=== PATIENT | male | born 1945 | race Caucasian/White ===

== ENCOUNTER 2020-06-04 11:15 | Outpatient (RCR) | payer SELFPAY | END 2020-06-04 23:59 | disposition home or self-care (01) | LOC: ANHAUDIO 11:15 | PROVIDERS: PCP Internal Medicine; Visit Provider Internal Medicine | DX: Z46.1 Encounter for fitting and adjustment of hearing aid (principal) | CPT/HCPCS: 92593 ==

== ENCOUNTER 2021-03-16 22:58 | Inpatient (IN) | payer OTHER, SELFPAY ==
[2021-03-16 23:10] VITALS: BP 187/81; PULSE 102; RESP 18; TEMP 36.2; O2SAT 100
[2021-03-17] VITALS (42 sets, daily range): BP systolic 119–233; BP diastolic 62–140; PULSE 82–137; RESP 12–35; TEMP 36.6–36.7; O2SAT 94–100; BMI 30.1
--- NOTE | 2021-03-17 00:45 | ED.MALEGU ---
HPI - Male Genitourinary General Chief complaint: Urogenital-Male <Keegan Adan MD - Last Filed: 03/17/21 00:49> Stated complaint: urinating blood x 1 hour <Keegan Adan MD - Last Filed: 03/17/21 00:49> Time Seen by Provider: 03/17/21 00:30 <Keegan Adan MD - Last Filed: 03/17/21 00:49> History of Present Illness HPI Narrative: Patient is a 75-year-old male who presents ER with hematuria. He was on warfarin. Reports has been having dysuria throughout the day and urinary frequency. He is urinating very small amounts. He is noticed blood and has been able to squeeze some out when he shakes. Occasional urinary pressure. No pain in the testicles. No history of kidney stone. <Keegan Adan MD - Last Filed: 03/17/21 00:49> Related Data Home medications: Home Medications Medication Instructions Recorded Confirmed glucosamine cap PO PRN 11/07/20 12/03/20 sulfate-methylsulfonylmethane 250 mg-250 mg capsule icosapent ethyl 1 gram capsule 2 g PO BID 11/07/20 12/03/20 losartan 25 mg tablet 12.5 mg PO BID 11/07/20 12/03/20 warfarin 10 mg PO QMWF 03/17/21 <Keegan Adan MD - Last Filed: 03/17/21 00:49> Allergies/Adverse reactions: Allergies Allergy/AdvReac Type Severity Reaction Status Date / Time No Known Allergies Allergy Verified 03/17/21 03:37 <Keegan Adan MD - Last Filed: 03/17/21 00:49> Review of Systems Review of Systems: All systems reviewed & are unremarkable except as noted in HPI and below <Keegan Adan MD - Last Filed: 03/17/21 00:49> Constitutional: Constitutional: Denies chills, Denies fever(s) and Denies weakness <Keegan Adan MD - Last Filed: 03/17/21 00:49> Gastrointestinal: Gastrointestinal: Denies abdominal pain, Denies nausea and Denies vomiting <Keegan Adan MD - Last Filed: 03/17/21 00:49> Genitourinary: Genitourinary: Reports hematuria, Reports oliguria, Reports dysuria, Denies penile discharge, Denies testicular pain and Reports urinary frequency <Keegan Adan MD - Last Filed: 03/17/21 00:49> Musculoskeletal: Musculoskeletal: Denies back pain and Denies muscle cramps <Keegan Adan MD - Last Filed: 03/17/21 00:49> PMFSH Past Medical History Medical History: Medical History (Updated 03/17/21 @ 06:43 by Huseyin Prajapati MD) Atherosclerotic heart disease Chronic diastolic (congestive) heart failure 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 Hx of myocardial infarction Hyperlipidemia Left knee DJD Obstructive sleep apnea Retinal artery occlusion Right knee DJD Right knee pain Vision abnormalities <Keegan Adan MD - Last Filed: 03/17/21 00:49> Surgical History Surgical History: Surgical History (Updated 03/17/21 @ 00:48 by Keegan Adan MD) History of appendectomy <Keegan Adan MD - Last Filed: 03/17/21 00:49> Family History Family History: Family History Mother Family history of thyroid disease Family history of malignant neoplasm Patient's mother is Father Hypertension Family history of Alzheimer's disease Family history of diabetes mellitus in first degree relative Family history of coronary artery disease Diabetes mellitus Sibling Carcinoma of colon Family history of diabetes mellitus in first degree relative Family history of coronary artery disease Diabetes mellitus Other Family history of arthritis Family history of cardiovascular disease <Keegan Adan MD - Last Filed: 03/17/21 00:49> Social History Social History: Social History Second hand tobacco smoke exposure: Yes Alcohol intake: never Substance use: never <Keegan Adan MD - Last Filed: 03/17/21 00:49> Exam Narrative: GENERAL: Well-appearing, well-nourished, and in no acute distress. HEAD
[2021-03-17 00:56] LABS: Basophils Percent Auto 0.4 % (0.2-1.2); Eosinophils Absolute Auto 0.3 K/mm3 (0-0.3); Eosinophils Percent Auto 2.6 % (0-4.4); Hematocrit 40.3 % (42.0-52.0); Hemoglobin 13.5 g/dL (14.0-18.0); Immature Granulocyte Absolute 0.05 K/mm3 (0.00-0.031); Immature Granulocyte Percent A 0.5 % (0-0.5); Immature Platelet Fraction Pct 7.5 % (0.9-11.2); Lymphocytes Absolute Auto 2.02 K/mm3 (0.9-3.2); Lymphocytes Percent Auto 21.2 % (18.3-44.2); Mean Corpuscular HGB Conc 33.5 g/dl (32-36); Mean Corpuscular Hemoglobin 30.8 pg (26-34); Mean Platelet Volume 11.3 fl (7.4-10.4); Monocytes Absolute Auto 0.8 K/mm3 (0.1-0.6); Monocytes Percent Auto 8.5 % (2.6-8.5); Neutrophils Absolute Auto 6.4 K/mm3 (1.3-6.7); Neutrophils Percent Auto 66.8 % (45.5-73.1); Platelet Count Result 124 k/mm3 (150-375); Red Blood Count 4.38 M/mm3 (4.6-6.20); Red Cell Distribution Width 13.9 % (11.5-14.5); White Blood Count 9.5 K/mm3 (4.5-10.0)
[2021-03-17 01:04] LABS: Add Urine Microscopic? YES; Appearance Urine Cloudy (Clear); Bacteria Urine Trace /hpf; Bilirubin Urine Negative (Negative); Blood Urine 3+ (Negative); Color Urine Yellow (Yellow); Glucose Urine UA Negative (Negative); Ketones Urine Negative (Negative); Leukocyte Esterase Ur 2+ LEU/UL (Negative); Mucus Urine Rare /lpf; Nitrate Urine Negative (Negative); Protein Urine 2+ mg/dL (Negative); RBC Urine >75 /hpf (0-2); Specific Grav Ur 1.011 (1.001-1.035); Urobilinogen Urine Negative mg/dL (<2.0); WBC Clumps Urine Present /HPF; WBC Urine >75 /hpf
[2021-03-17 01:05] LABS: Anion Gap 6 mmol/L (8-16); Blood Urea Nitrogen 20 mg/dL (9-20); Carbon Dioxide 31 mmol/L (22-30); Chloride 101 mmol/L (98-107); Estimated CRCL calculation 61 ml/min; Estimated Glomerular Filt Rate > 60; Glucose 129 mg/dL (65-110); Potassium 3.8 mmol/L (3.4-5.0); Prothrombin Time 30.1 Seconds (11.1-14.7); Sodium 138 mmol/L (137-145)
[2021-03-17 01:07] LABS: Partial Thromboplastin Time 69.9 SECONDS (22.3-36.8)
[2021-03-17] MEDS: SODIUM CHLORIDE 0.9% IV 1,000 ML 999 ML IV CONT (01:23)
--- NOTE | 2021-03-17 01:26 | PC.NURSE ---
Blood cultures x 2 and lactic acid drawn.
[2021-03-17 01:45] LABS: Lactic Acid Reflex 2.1 mmol/L (0.7-2.1)
[2021-03-17] MEDS: SODIUM CHLORIDE 0.9% IV 1,000 ML 125 ML IV CONT (04:10)
[2021-03-17 04:30] LABS: Reflex Lactic Acid Yes or No Add Lactic
[2021-03-17 09:01] LABS: Lactic Acid 1.1 mmol/L (0.7-2.1)
--- NOTE | 2021-03-17 09:06 | PC.NURSE ---
URINE IN JEFFRIES BAG . BLOODY IN COLOR. URINE IN TUBING YELLOW. JEFFRIES BAG EMPTIED AT THIS TIME. OKAY PER MD FOR PATIENT TO TAKE HIS HOME MEDICATIONS THAT BROUGHT. MEDICATION LIST CONFIRMED
--- NOTE | 2021-03-17 16:16 | PM.IMHP ---
H&P: HPI History of Present Illness Date/Time: 03/17/21 16:16 Chief Complaint: Dysuria Narrative: Patient is a 75-year-old male who presents ER with hematuria. He was on warfarin. He reports Reports has been having dysuria throughout the day and urinary frequency since past few days. He is urinating very small amounts. He is noticed blood and has been able to squeeze some out when he shakes. Occasional urinary pressure. No pain in the testicles. No history of kidney stone. Upon arrival to the ED his urinalysis showed significant UTI and Willard has been placed. Whether not he had urinary retention is unclear from the documentation. He denies any fever or chills shortness of breath Review of Systems Review of Systems: - CONSTITUTIONAL: Denies weight loss, fever and chills. - HEENT: Denies changes in vision and hearing - RESPIRATORY: Denies SOB and cough. - CV: Denies palpitations and CP. - GI: Denies abdominal pain, nausea, vomiting and diarrhea. - : Reports dysuria and urinary frequency. - MSK: Denies myalgia and joint pain. - SKIN: Denies rash and pruritus. - NEUROLOGICAL: Denies headache and syncope. - PSYCHIATRIC: Denies recent changes in mood. Denies anxiety and depression. 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 Hx of myocardial infarction Hyperlipidemia Left knee DJD Obstructive sleep apnea Retinal artery occlusion Right knee DJD Right knee pain Vision abnormalities Surgical History Surgical History (Updated 03/17/21 @ 00:48 by Keegan Adan MD) History of appendectomy Family History Family History Mother Family history of thyroid disease Family history of malignant neoplasm Patient's mother is Father Hypertension Family history of Alzheimer's disease Family history of diabetes mellitus in first degree relative Family history of coronary artery disease Diabetes mellitus Sibling Carcinoma of colon Family history of diabetes mellitus in first degree relative Family history of coronary artery disease Diabetes mellitus Other Family history of arthritis Family history of cardiovascular disease Social History Social History Second hand tobacco smoke exposure: Yes Alcohol intake: never Substance use: never Meds Home Medications and Allergies Home Medications Medication Instructions Recorded Confirmed Type aspirin 81 mg tablet,delayed 81 mg PO DAILY #90 tablet 09/20/19 03/17/21 Rx release furosemide 20 mg tablet 20 mg PO QAM #90 tablet 09/20/19 03/17/21 Rx pantoprazole 40 mg tablet,delayed 40 mg PO QAM #90 tablet 09/20/19 03/17/21 Rx release glucosamine 1 cap PO DAILY 11/07/20 03/17/21 History sulfate-methylsulfonylmethane 250 mg-250 mg capsule losartan 25 mg tablet 12.5 mg PO BID 11/07/20 03/17/21 History atorvastatin 40 mg PO HS 03/17/21 03/17/21 History icosapent ethyl [Vascepa] 2 g PO BID 03/17/21 03/17/21 History warfarin 10 mg PO QMWF 03/17/21 03/17/21 History Allergies Allergy/AdvReac Type Severity Reaction Status Date / Time No Known Allergies Allergy Verified 03/17/21 03:37 Vital Signs Vital Signs - 24 hr 03/16/21 23:10 03/17/21 00:21 03/17/21 00:22 Temperature 97.1 F L Pulse Rate 102 H 96 97 Respiratory Rate 18 12 23 H Blood Pressure 187/81 H 180/88 H Pulse Oximetry 100 03/17/21 00:30 03/17/21 00:31 03/17/21 00:45 Temperature Pulse Rate 98 95 117 H Respiratory Rate 18 20 20
--- NOTE | 2021-03-17 18:57 | ADMGEN ---
This patient, Steven Shaw, was admitted to [facility] Room 314-02. Patient/family oriented to hospital policies and general routines including ID bracelet, bed and alarms, visiting hours, pain management, procedures, bathroom and other care routines, personal items, smoking policy, room service/diet, and visiting hours. Information on how to activate the Rapid Response Team has been discussed. Patient/Family are encouraged to report perceived risks to care and to ask questions if they do not understand what they are told or what they should do.
[2021-03-18 05:32] VITALS: BP 141/80; PULSE 82; RESP 16; TEMP 36.4; O2SAT 96
[2021-03-18 06:37] LABS: Basophils Percent Auto 0.6 % (0.2-1.2); Eosinophils Absolute Auto 0.3 K/mm3 (0-0.3); Eosinophils Percent Auto 4.3 % (0-4.4); Hematocrit 39.3 % (42.0-52.0); Hemoglobin 13.1 g/dL (14.0-18.0); Immature Granulocyte Absolute 0.06 K/mm3 (0.00-0.031); Immature Granulocyte Percent A 0.8 % (0-0.5); Immature Platelet Fraction Pct 5.7 % (0.9-11.2); Lymphocytes Absolute Auto 2.42 K/mm3 (0.9-3.2); Lymphocytes Percent Auto 33.9 % (18.3-44.2); Mean Corpuscular HGB Conc 33.3 g/dl (32-36); Mean Corpuscular Hemoglobin 30.7 pg (26-34); Mean Platelet Volume 11.2 fl (7.4-10.4); Monocytes Absolute Auto 0.8 K/mm3 (0.1-0.6); Monocytes Percent Auto 11.6 % (2.6-8.5); Neutrophils Absolute Auto 3.5 K/mm3 (1.3-6.7); Neutrophils Percent Auto 48.8 % (45.5-73.1); Platelet Count Result 136 k/mm3 (150-375); Red Blood Count 4.27 M/mm3 (4.6-6.20); Red Cell Distribution Width 14.1 % (11.5-14.5); White Blood Count 7.1 K/mm3 (4.5-10.0)
[2021-03-18 07:18] LABS: INR 3.3; Prothrombin Time 32.6 Seconds (11.1-14.7)
[2021-03-18 07:32] LABS: Alanine Aminotransferase 30 U/L (4-50); Albumin Level 3.6 g/dL (3.5-5.1); Alkaline Phosphatase 71 U/L (38-126); Anion Gap 4 mmol/L (8-16); Aspartate Amino Transferase 31 U/L (17-59); Bilirubin,Total 0.7 mg/dL (0.2-1.3); Blood Urea Nitrogen 12 mg/dL (9-20); Calcium 8.8 mg/dL (8.4-10.2); Carbon Dioxide 31 mmol/L (22-30); Chloride 105 mmol/L (98-107); Estimated CRCL calculation 84 ml/min; Estimated Glomerular Filt Rate > 60; Glucose 117 mg/dL (65-110); Sodium 140 mmol/L (137-145)
[2021-03-18 08:00] VITALS: PULSE 82; RESP 16; O2SAT 96
--- NOTE | 2021-03-18 08:48 | PC.NURSE ---
Pt took own home medication this morning in medication schedule case. Discussed with pt and pt medication schedule case needs to be placed in medication room and given back at discharge to avoid further confusion with medication administration.Md notified. to bring up medication list to clarify pt medication.
--- NOTE | 2021-03-18 08:56 | PC.NURSE ---
Provider Thompson Cooney called regarding pt taking own home medication this morning, to bring in medication list the clarify home medication indigested this morning.
--- NOTE | 2021-03-18 12:05 | PC.NURSE ---
Called and reported PT/INR to provider Rocio Cooney, awaiting call back.
--- NOTE | 2021-03-18 13:22 | PC.NURSE ---
Per provider Rocio Cooney, warfarin held at this time.
--- NOTE | 2021-03-18 13:42 | PC.NURSE ---
Informed provider Rocio Cooney pt family requesting urology consult.
[2021-03-18 13:55] VITALS: BP 117/87; PULSE 92; RESP 20; TEMP 36.7; O2SAT 100
--- NOTE | 2021-03-18 14:18 | PC.NURSE ---
POA stated wants to discuss plan of care with hospitalist, Radha Cooney informed.
--- NOTE | 2021-03-18 17:25 | PM.IMPN ---
Progress Note: A&P Assessment and Plan (1) Urinary tract infection: Qualifiers: Hematuria presence: without hematuria Urinary tract infection type: acute cystitis Qualified Code(s): N30.00 - Acute cystitis without hematuria Code(s): N39.0 - Urinary tract infection, site not specified Status: Acute (2) Chronic diastolic (congestive) heart failure: Code(s): I50.32 - Chronic diastolic (congestive) heart failure Status: Acute (3) Retinal artery occlusion: Code(s): H34.9 - Unspecified retinal vascular occlusion Status: Acute (4) Obstructive sleep apnea: Code(s): G47.33 - Obstructive sleep apnea (adult) (pediatric) Status: Acute (5) Hyperlipidemia: Code(s): E78.5 - Hyperlipidemia, unspecified Status: Acute (6) Urinary retention: Code(s): R33.9 - Retention of urine, unspecified Status: Acute Additional Plan # urine tract infection Rocephin started follow cultures # urinary retention Willard in place follow-up with Urology in 1-2 weeks for removal of Willard catheter likely due to UTI does have history of BPH. 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 HEAD: Normocephalic, atraumatic. CHEST: Clear to auscultation. No respiratory distress. HEART: Regular rate and rhythm. Normal peripheral pulses. ABDOMEN: Soft, nontender, nondistended. EXTREMITIES: Normal range of motion. No edema. SKIN: Warm, dry, no rash. NEURO: Alert and oriented x3. PSYCH: Normal mood and affect. Urinary: Willard in place clear urine in bag Objective Data Vital Signs Vital Signs: Vital Signs - 24 hr 03/17/21 18:48 03/17/21 20:00 03/17/21 22:00 Temperature 36.6 C Pulse Rate 87 90 Respiratory Rate 18 18 18 Blood Pressure 137/84 119/62 Pulse Oximetry 99 99 97 03/18/21 05:32 03/18/21 08:00 03/18/21 13:55 Temperature 36.4 C 36.7 C Pulse Rate 82 82 92 Respiratory Rate 16 16 20 Blood Pressure 141/80 H 117/87 Pulse Oximetry 96 96 100 Intake/Output Intake/Output: Intake & Output 03/15/21 03/16/21 03/17/21 03/18/21 23:59 23:59 23:59 23:59 Intake Total 2150 1800 Output Total 3200 2400 Balance -1050 -600 Meds/Results Medications: Active Medications Generic Name Dose Route Start Last Admin Trade Name Freq PRN Reason Stop Dose Admin Acetaminophen 650 mg 03/17/21 01:44 Acetaminophen 325 Mg Tablet PO Q4H PRN Fever Aspirin 81 mg 03/18/21 09:00 03/18/21 08:53 Aspirin 81 Mg Enteric Tablet PO Not Given DAILY RUDY Atorvastatin Calcium 40 mg 03/17/21 21:00 03/17/21 20:51 Atorvastatin 40 Mg Tablet PO Not Given HS RUDY Fish Oil 2 gm 03/17/21 17:00 03/18/21 08:53 [place] 3 Polyunsat Fatty Acids 1 Gm Cap PO Not Given BID RUDY Furosemide 20 mg 03/18/21 09:00 03/18/21 09:00 Furosemide 20 Mg Tablet PO Not Given QAM RUDY Sodium Chloride 1,000 mls @ 125 mls/hr 03/17/21 01:45 03/17/21 12:28 Normal Saline Iv IV CONT Infused .Q8H RUDY Infusion Losartan Potassium 12.5 mg 03/17/21 21:00 03/18/21 09:00 Losartan Potassium 12.5 Mg Tablet PO Not Given Q12HR RUDY Non-Formulary Medication 1 cap 03/18/21 09:
[2021-03-18] MEDS: OMEGA 3 POLYUNSAT FATTY ACIDS 1 GM CAP 2 GM PO (18:43)
[2021-03-18 19:17] VITALS: PULSE 92; RESP 20; O2SAT 100
[2021-03-18] MEDS: ATORVASTATIN 40 MG TABLET PO (21:16)
[2021-03-18] MEDS: LOSARTAN POTASSIUM 12.5 MG TABLET PO (21:16)
[2021-03-18 22:00] VITALS: BP 153/70; PULSE 78; RESP 16; TEMP 36.6; O2SAT 99
[2021-03-19 06:00] VITALS: BP 160/82; PULSE 88; RESP 18; TEMP 36.8; O2SAT 100
[2021-03-19 07:53] LABS: INR 2.2; Prothrombin Time 23.5 Seconds (11.1-14.7)
[2021-03-19] MEDS: ASPIRIN 81 MG ENTERIC TABLET PO (08:06)
[2021-03-19] MEDS: FUROSEMIDE 20 MG TABLET PO (08:06)
[2021-03-19] MEDS: LOSARTAN POTASSIUM 12.5 MG TABLET PO ×2 (08:06→20:14)
[2021-03-19] MEDS: OMEGA 3 POLYUNSAT FATTY ACIDS 1 GM CAP 2 GM PO ×2 (08:06→17:36)
[2021-03-19] MEDS: PANTOPRAZOLE 40 MG TABLET PO (08:06)
--- NOTE | 2021-03-19 10:36 | PM.IMPN ---
Progress Note: A&P Assessment and Plan (1) Urinary tract infection: Qualifiers: Hematuria presence: without hematuria Urinary tract infection type: acute cystitis Qualified Code(s): N30.00 - Acute cystitis without hematuria Code(s): N39.0 - Urinary tract infection, site not specified Status: Acute Assessment and Plan: UC-->Escherichia Coli Continue IV Rocephin (2) Chronic diastolic (congestive) heart failure: Code(s): I50.32 - Chronic diastolic (congestive) heart failure Status: Acute (3) Retinal artery occlusion: Code(s): H34.9 - Unspecified retinal vascular occlusion Status: Acute (4) Obstructive sleep apnea: Code(s): G47.33 - Obstructive sleep apnea (adult) (pediatric) Status: Acute (5) Hyperlipidemia: Code(s): E78.5 - Hyperlipidemia, unspecified Status: Acute (6) Urinary retention: Code(s): R33.9 - Retention of urine, unspecified Status: Acute Assessment and Plan: Willard in place follow-up with Urology in 1-2 weeks for removal of Willard catheter Likely due to UTI does have history of BPH (7) Bacteremia: Code(s): R78.81 - Bacteremia Status: Acute Assessment and Plan: BC-->Coag negative Staphylococcus Empiric antibiotics initiated Follow final results and sensitivity Additional Plan # urine tract infection Rocephin started follow cultures # urinary retention Willard in place follow-up with Urology in 1-2 weeks for removal of Willard catheter likely due to UTI does have history of BPH. 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 # osteoarthrtitis # DVT proph: on warfarin wtih therapeutic INR Disposition: Home with self care; discussed plan for care with RN and family Subjective Date/time seen: 03/19/21 10:36 Interval history: 03/18/2021: Pt seen this a.m.; labs, vs, diagnostic reports reviewed; denies any abdominal pain; Willard catheter draining without difficulty 03/19/2021: Pt seen and evaluated; BC+;no acute events overnight; no new complaints Review of Systems Review of Systems: All systems reviewed & are unremarkable except as noted in HPI and below Exam Narrative: GENERAL: Well-appearing, well-nourished, and in no acute distress. HEAD: Normocephalic, atraumatic. CHEST: Clear to auscultation. No respiratory distress. HEART: Regular rate and rhythm. Normal peripheral pulses. ABDOMEN: Soft, nontender, nondistended. EXTREMITIES: Normal range of motion. No edema. SKIN: Warm, dry, no rash. NEURO: Alert and oriented x3. PSYCH: Normal mood and affect. Urinary: Willard in place clear urine in bag Objective Data Vital Signs Vital Signs: Vital Signs - 24 hr 03/18/21 13:55 03/18/21 19:17 03/18/21 22:00 Temperature 36.7 C 36.6 C Pulse Rate 92 92 78 Respiratory Rate 20 20 16 Blood Pressure 117/87 153/70 H Pulse Oximetry 100 100 99 03/19/21 06:00 Temperature 36.8 C Pulse Rate 88 Respiratory Rate 18 Blood Pressure 160/82 H Pulse Oximetry 100 Intake/Output Intake/Output: Intake & Output 03/16/21 03/17/21 03/18/21 03/19/21 23:59 23:59 23:59 23:59 Intake Total 2150 2590 300 Output Total 3200 2700 2300 Balance -1050 -110 -6037 Meds/Results Medications: Active Medications Generic Name Dose Route Start Last Admin Trade Name Freq PRN Reason Stop Dose Admin Acetaminophen 650 mg 03/17/21 01:44 Acetaminophen 325 Mg Tablet PO Q4H PRN Fever Aspirin 81 mg 03/18/21 09:00 03/19/21 08:06 Aspirin 81 Mg Enteric Tablet PO 81 mg DAILY RUDY Administration Atorvastatin Calcium 40 mg 03/17/21 21:00 03/18/21 21:16
[2021-03-19 15:24] VITALS: BP 136/67; PULSE 88; RESP 16; TEMP 36.3; O2SAT 97
[2021-03-19] MEDS: WARFARIN (*PBKC) 4 MG TABLET 8 MG PO (17:37)
[2021-03-19] MEDS: ATORVASTATIN 40 MG TABLET PO (20:14)
[2021-03-19 22:00] VITALS: BP 121/56; PULSE 89; RESP 18; TEMP 36.4; O2SAT 97
[2021-03-20 06:00] VITALS: BP 163/85; PULSE 96; RESP 18; TEMP 36.1; O2SAT 100
[2021-03-20 07:57] LABS: INR 1.9; Prothrombin Time 21.3 Seconds (11.1-14.7)
[2021-03-20] MEDS: ASPIRIN 81 MG ENTERIC TABLET PO (08:05)
[2021-03-20] MEDS: OMEGA 3 POLYUNSAT FATTY ACIDS 1 GM CAP 2 GM PO ×2 (08:05→18:00)
[2021-03-20] MEDS: FUROSEMIDE 20 MG TABLET PO (08:05)
[2021-03-20] MEDS: PANTOPRAZOLE 40 MG TABLET PO (08:06)
[2021-03-20] MEDS: LOSARTAN POTASSIUM 12.5 MG TABLET PO ×2 (08:06→19:55)
[2021-03-20 09:22] LABS: Hematocrit 39.5 % (42.0-52.0); Hemoglobin 13.1 g/dL (14.0-18.0); Mean Corpuscular HGB Conc 33.2 g/dl (32-36); Mean Corpuscular Hemoglobin 30.3 pg (26-34); Mean Corpuscular Volume 91.4 fl (80-100); Mean Platelet Volume 10.8 fl (7.4-10.4); Platelet Count Result 149 k/mm3 (150-375); Red Blood Count 4.32 M/mm3 (4.6-6.20); Red Cell Distribution Width 13.5 % (11.5-14.5); White Blood Count 6.7 K/mm3 (4.5-10.0)
--- NOTE | 2021-03-20 09:34 | PM.IMPN ---
Progress Note: A&P Assessment and Plan (1) Urinary tract infection: Qualifiers: Hematuria presence: without hematuria Urinary tract infection type: acute cystitis Qualified Code(s): N30.00 - Acute cystitis without hematuria Code(s): N39.0 - Urinary tract infection, site not specified Status: Acute Assessment and Plan: UC-->Escherichia Coli Continue IV Rocephin (2) Chronic diastolic (congestive) heart failure: Code(s): I50.32 - Chronic diastolic (congestive) heart failure Status: Acute (3) Retinal artery occlusion: Code(s): H34.9 - Unspecified retinal vascular occlusion Status: Acute (4) Obstructive sleep apnea: Code(s): G47.33 - Obstructive sleep apnea (adult) (pediatric) Status: Acute (5) Hyperlipidemia: Code(s): E78.5 - Hyperlipidemia, unspecified Status: Acute (6) Urinary retention: Code(s): R33.9 - Retention of urine, unspecified Status: Acute Assessment and Plan: Willard in place follow-up with Urology in 1-2 weeks for removal of Willard catheter Likely due to UTI does have history of BPH (7) Bacteremia: Code(s): R78.81 - Bacteremia Status: Acute Assessment and Plan: BC-->Coag negative Staphylococcus Empiric antibiotics initiated Continue Vanc, home on oral antibiotics tomorrow Additional Plan # urine tract infection Rocephin started follow cultures # urinary retention Willard in place follow-up with Urology in 1-2 weeks for removal of Willard catheter likely due to UTI does have history of BPH. 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 # osteoarthrtitis # DVT proph: on warfarin wtih therapeutic INR Disposition: Home with self care; d/c home tomorrow Subjective Date/time seen: 03/20/21 09:34 Interval history: 03/18/2021: Pt seen this a.m.; labs, vs, diagnostic reports reviewed; denies any abdominal pain; Willard catheter draining without difficulty 03/19/2021: Pt seen and evaluated; BC+;no acute events overnight; no new complaints 03/20/2021: Pt seen and examined; overall pt is improving clinically; no acute events overnight; denies any new complaints Review of Systems Review of Systems: All systems reviewed & are unremarkable except as noted in HPI and below Exam Narrative: GENERAL: Well-appearing, well-nourished, and in no acute distress. HEAD: Normocephalic, atraumatic. CHEST: Clear to auscultation. No respiratory distress. HEART: Regular rate and rhythm. Normal peripheral pulses. ABDOMEN: Soft, nontender, nondistended. EXTREMITIES: Normal range of motion. No edema. SKIN: Warm, dry, no rash. NEURO: Alert and oriented x3. PSYCH: Normal mood and affect. Urinary: Willard in place clear urine in bag Objective Data Vital Signs Vital Signs: Vital Signs - 24 hr 03/19/21 15:24 03/19/21 22:00 03/20/21 06:00 Temperature 36.3 C L 36.4 C 36.1 C L Pulse Rate 88 89 96 Respiratory Rate 16 18 18 Blood Pressure 136/67 121/56 L 163/85 H Pulse Oximetry 97 97 100 Intake/Output Intake/Output: Intake & Output 03/17/21 03/18/21 03/19/21 03/20/21 23:59 23:59 23:59 23:59 Intake Total 2150 2590 1810 800 Output Total 3200 2700 3650 1999 Balance -1050 -110 -1840 -1200 Meds/Results Medications: Active Medications Generic Name Dose Route Start Last Admin Trade Name Emil PRN Reason Stop Dose Admin Acetaminophen 650 mg 03/17/21 01:44 Acetaminophen 325 Mg Tablet PO Q4H PRN Fever Aspirin 81 mg 03/18/21 09:00 03/20/21 08:05 Aspirin 81 Mg Enteric Tablet PO 81 mg DAILY RUDY Administration Atorvastatin Calcium 40 mg 03/17/21 21:
[2021-03-20 09:40] LABS: Anion Gap 8 mmol/L (8-16); Blood Urea Nitrogen 15 mg/dL (9-20); Calcium 8.7 mg/dL (8.4-10.2); Carbon Dioxide 30 mmol/L (22-30); Chloride 100 mmol/L (98-107); Estimated CRCL calculation 68 ml/min; Estimated Glomerular Filt Rate > 60; Glucose 177 mg/dL (65-110); Sodium 138 mmol/L (137-145)
--- NOTE | 2021-03-20 12:24 | PC.NURSE ---
pt has very decreased appetite. refusing to eat any meals but does drink liquids occasionally. Spoke with dietitian about started the pt on some supplements. will follow up.
[2021-03-20 14:00] VITALS: BP 118/70; PULSE 84; RESP 18; TEMP 36.7; O2SAT 99
[2021-03-20] MEDS: WARFARIN (*PBKC) 5 MG TABLET 10 MG PO (18:00)
[2021-03-20] MEDS: ATORVASTATIN 40 MG TABLET PO (19:55)
[2021-03-20 22:00] VITALS: BP 141/76; PULSE 90; RESP 18; TEMP 37.4; O2SAT 99
[2021-03-21 00:07] LABS: Vancomycin Trough 12.6 ug/mL (10.0-20.0)
[2021-03-21 05:45] VITALS: BP 134/69; PULSE 86; RESP 16; TEMP 37; O2SAT 98
[2021-03-21] MEDS: LOSARTAN POTASSIUM 12.5 MG TABLET PO (08:44)
[2021-03-21] MEDS: ASPIRIN 81 MG ENTERIC TABLET PO (08:44)
[2021-03-21] MEDS: FUROSEMIDE 20 MG TABLET PO (08:44)
[2021-03-21] MEDS: PANTOPRAZOLE 40 MG TABLET PO (08:45)
[2021-03-21] MEDS: OMEGA 3 POLYUNSAT FATTY ACIDS 1 GM CAP 2 GM PO (08:45)
[2021-03-21 08:50] LABS: Estimated CRCL calculation 75 ml/min; Estimated Glomerular Filt Rate > 60
[2021-03-21 10:16] LABS: Hematocrit 39.9 % (42.0-52.0); Hemoglobin 13.2 g/dL (14.0-18.0); Mean Corpuscular HGB Conc 33.1 g/dl (32-36); Mean Corpuscular Hemoglobin 30.7 pg (26-34); Mean Corpuscular Volume 92.8 fl (80-100); Mean Platelet Volume 10.4 fl (7.4-10.4); Platelet Count Result 169 k/mm3 (150-375); Red Cell Distribution Width 13.5 % (11.5-14.5)
[2021-03-21 10:40] LABS: Anion Gap 6 mmol/L (8-16); Blood Urea Nitrogen 15 mg/dL (9-20); Calcium 8.6 mg/dL (8.4-10.2); Carbon Dioxide 29 mmol/L (22-30); Chloride 103 mmol/L (98-107); Estimated CRCL calculation 75 ml/min; Estimated Glomerular Filt Rate > 60; Glucose 167 mg/dL (65-110); Sodium 138 mmol/L (137-145)
[2021-03-21 11:27] LABS: INR 1.8; Prothrombin Time 20.8 Seconds (11.1-14.7)
--- NOTE | 2021-03-21 13:28 | PM.DS ---
DS: Admitting Diagnosis Discharge Date 03/21/2021 Admitting Diagnosis Urinary tract infection DS: Discharge Diagnosis Discharge Diagnosis (1) Urinary tract infection: Qualifiers: Hematuria presence: without hematuria Urinary tract infection type: acute cystitis Qualified Code(s): N30.00 - Acute cystitis without hematuria Code(s): N39.0 - Urinary tract infection, site not specified Status: Acute Assessment and Plan: UC-->Escherichia Coli S/p IV Rocephin (2) Chronic diastolic (congestive) heart failure: Code(s): I50.32 - Chronic diastolic (congestive) heart failure Status: Acute (3) Retinal artery occlusion: Code(s): H34.9 - Unspecified retinal vascular occlusion Status: Acute (4) Obstructive sleep apnea: Code(s): G47.33 - Obstructive sleep apnea (adult) (pediatric) Status: Acute (5) Hyperlipidemia: Code(s): E78.5 - Hyperlipidemia, unspecified Status: Acute (6) Urinary retention: Code(s): R33.9 - Retention of urine, unspecified Status: Acute Assessment and Plan: Willard in place follow-up with Urology in 1-2 weeks for removal of Willard catheter Likely due to UTI does have history of BPH (7) Bacteremia: Code(s): R78.81 - Bacteremia Status: Acute Assessment and Plan: BC-->Coag negative Staphylococcus Empiric antibiotics initiated Continue Vanc, home on oral antibiotics tomorrow DS: Summary Hospital Course Hospital Course: Steven Shaw is a 75-year-old male who presents ER with hematuria. He was on warfarin. He reports Reports has been having dysuria throughout the day and urinary frequency since past few days. He is urinating very small amounts. He is noticed blood and has been able to squeeze some out when he shakes. Occasional urinary pressure. No pain in the testicles. No history of kidney stone. Upon arrival to the ED his urinalysis showed significant UTI and Willard has been placed. Whether not he had urinary retention is unclear from the documentation. He denies any fever or chills shortness of breath. The patient has responded well to IV antibiotics and clinically has improved. He will discharge home with oral antibiotics. He has been advised to follow up with his PCP and also with urology. Time Spent with Patient Time attestation: Total time spent providing and/or coordinating discharge services: Time spent: Greater than 30 minutes Exam Narrative: GENERAL: Well-appearing, well-nourished, and in no acute distress. HEAD: Normocephalic, atraumatic. CHEST: Clear to auscultation. No respiratory distress. HEART: Regular rate and rhythm. Normal peripheral pulses. ABDOMEN: Soft, nontender, nondistended. EXTREMITIES: Normal range of motion. No edema. SKIN: Warm, dry, no rash. NEURO: Alert and oriented x3. PSYCH: Normal mood and affect. Urinary: Willard in place clear urine in bag DS: Data Data Completed and Pending Labs on day of discharge: Labs from last 24 hours 03/21/21 03/21/21 03/21/21 10:55 09:45 09:45 WBC 8.0 RBC 4.30 L Hgb 13.2 L Hct 39.9 L MCV 92.8 MCH 30.7 MCHC 33.1 RDW 13.5 Plt Count 169 MPV 10.4 PT 20.8 H INR 1.8 Sodium 138 Potassium 4.0 Chloride 103 Carbon Dioxide 29 Anion Gap 6 L BUN 15 Creatinine 0.90 Estim Creat Clear Calc 75 Estimated GFR > 60 Glucose 167 H Calcium 8.6 Vancomycin Trough 03/21/21 03/20/21 07:23 23:12 WBC RBC Hgb Hct MCV MCH MCHC RDW Plt Count MPV PT INR Sodium Potassium Chloride Carbon Dioxide Anion Gap BUN Creatinine 0.90 Estim Creat Clear Calc 75 Estimated GFR > 60 Glucose Calcium Vancomycin Trough 12.6 Discharge Plan Discharge Attending physician on discharge: Olga Aparicio Discharging Clinician: Rocio Cooney Patient Disposition: Home, Self-Care Activity:
[2021-03-21 14:00] VITALS: BP 117/56; PULSE 74; RESP 19; TEMP 36.3; O2SAT 100
== END 2021-03-21 15:30 | disposition home or self-care (01) | DRG 690 ==
LOC: ANHED 03-17 06:43 → ANH3MEDSUR 03-17 17:46
PROVIDERS: Emergency Medicine; Internal Medicine; Admitting Provider Internal Medicine; Emergency Provider Emergency Medicine; PCP Internal Medicine; Visit Provider Nurse Practitioner Adult Health
DX: N39.0 Urinary tract infection, site not specified (principal); I50.32 Chronic diastolic (congestive) heart failure; H34.9 Unspecified retinal vascular occlusion; R78.81 Bacteremia; B96.20 Unspecified Escherichia coli [E. coli] as the cause of diseases classified elsewhere; G47.33 Obstructive sleep apnea (adult) (pediatric); E78.5 Hyperlipidemia, unspecified; B95.7 Other staphylococcus as the cause of diseases classified elsewhere; I25.10 Atherosclerotic heart disease of native coronary artery without angina pectoris; M17.0 Bilateral primary osteoarthritis of knee; R73.03 Prediabetes; N40.1 Benign prostatic hyperplasia with lower urinary tract symptoms; R33.8 Other retention of urine; I48.0 Paroxysmal atrial fibrillation; I73.9 Peripheral vascular disease, unspecified; I25.2 Old myocardial infarction; Z90.49 Acquired absence of other specified parts of digestive tract; Z79.01 Long term (current) use of anticoagulants; Z95.1 Presence of aortocoronary bypass graft; Z95.2 Presence of prosthetic heart valve; H54.7 Unspecified visual loss
CPT/HCPCS: 36415; 80048; 80053; 80202; 81001; 82565; 83605; 85025; 85027; 85055; 85610; 85730; 87040; 87077; 87086; 87088; 87186; 96361; 96365; 96367; 97161; 97165; 99285; A9270; G0378; J0131; J0696; J3370; J7030

== ENCOUNTER 2022-01-20 09:19 | Outpatient (CLI) | payer OTHER, SELFPAY ==
[2022-01-20 10:02] LABS: Basophils Absolute Auto 0.1 K/mm3 (0.0-0.1); Basophils Percent Auto 0.5 % (0.2-1.2); Eosinophils Absolute Auto 0.2 K/mm3 (0-0.3); Hematocrit 43.3 % (42.0-52.0); Hemoglobin 14.3 g/dL (14.0-18.0); Immature Granulocyte Absolute 0.12 K/mm3 (0.00-0.031); Immature Granulocyte Percent A 1.2 % (0-0.5); Lymphocytes Absolute Auto 3.63 K/mm3 (0.9-3.2); Lymphocytes Percent Auto 37.7 % (18.3-44.2); Mean Corpuscular Hemoglobin 30.9 pg (26-34); Mean Corpuscular Volume 93.5 fl (80-100); Mean Platelet Volume 10.4 fl (7.4-10.4); Monocytes Absolute Auto 0.8 K/mm3 (0.1-0.6); Monocytes Percent Auto 8.2 % (2.6-8.5); Neutrophils Absolute Auto 4.9 K/mm3 (1.3-6.7); Neutrophils Percent Auto 50.4 % (45.5-73.1); Platelet Count Result 165 k/mm3 (150-375); Red Blood Count 4.63 M/mm3 (4.6-6.20); Red Cell Distribution Width 14.3 % (11.5-14.5); White Blood Count 9.6 K/mm3 (4.5-10.0)
[2022-01-20 10:08] LABS: Appearance Urine Clear (Clear); Bilirubin Urine Negative (Negative); Blood Urine 1+ (Negative); Color Urine Yellow (Yellow); Glucose Urine UA Negative (Negative); Ketones Urine Negative (Negative); Leukocyte Esterase Ur Negative LEU/UL (Negative); Nitrate Urine Negative (Negative); Protein Urine Negative (Negative); Specific Grav Ur 1.015 (1.001-1.035); Urobilinogen Urine 0.2 mg/dL (<2.0)
[2022-01-20 10:12] LABS: Anion Gap 9 mmol/L (8-16); Blood Urea Nitrogen 19 mg/dL (9-20); Carbon Dioxide 30 mmol/L (22-30); Chloride 101 mmol/L (98-107); Estimated Glomerular Filt Rate > 60; Glucose 118 mg/dL (65-110); Potassium 4.1 mmol/L (3.4-5.0); Sodium 140 mmol/L (137-145)
--- NOTE | 2022-01-20 10:21 | ECG_ITS ---
Measurements Intervals [place] Rate: 73 P: 48 NH: 172 QRS: 9 QRSD: 102 T: 54 QT: 382 QTc: 423 Interpretive Statements SINUS RHYTHM POSSIBLE LEFT ATRIAL ENLARGEMENT CONSIDER INFERIOR INFARCT, AGE INDETERMINATE ABNORMAL ECG NO PREVIOUS ECG AVAILABLE FOR COMPARISON Electronically Signed On 01-20-2022 11:00:51 CHART WRITER by Terrell Parry D.O.
[2022-01-20 10:34] LABS: Squamous Epithelial Cell Urine Rare /hpf (Few); WBC Urine 0-3 /hpf
[2022-01-20 11:35] LABS: Add Urine Microscopic? YES
== END 2022-01-20 09:20 | disposition home or self-care (01) ==
LOC: ANHLAB 09:23
PROVIDERS: PCP Internal Medicine; Visit Provider Nurse Practitioner Family
DX: N39.0 Urinary tract infection, site not specified (principal); M17.0 Bilateral primary osteoarthritis of knee; R94.31 Abnormal electrocardiogram [ECG] [EKG]
CPT/HCPCS: 36415; 80048; 81001; 85025; 93005

== ENCOUNTER 2022-01-28 12:45 | Outpatient (CLI) | payer OTHER, SELFPAY ==
--- NOTE | ~2022-01-28 | US_ITS ---
EXAMINATION: US art doppler w press LE BI DATE: 01/28/2022 15:01 INDICATION: Evaluate for arterial blood flow to the lower limbs. Bilateral lower limb pain. TECHNIQUE: Segmental pressures and plethysmographic and Doppler waveforms of the brachial and lower e xtremity arteries were obtained. COMPARISON: None. FINDINGS: Right and left brachial artery pressures of 145 mm Hg and 136 mm Hg, respectively, are concordant (no rmal difference <= 30 mmHg). The bilateral high thigh pressure indices as well as the segmental press ure gradients and the left ankle-brachial index are unable to be obtained due to inability to occlude the vessels at about the level of the ankles in either lower limb with the exception of the right po sterior tibial artery. The right ankle-brachial index (YE) is 0.90 (normal >= 0.9-1). The right great toe-brachial index (T BI) is 0.68 (normal >= 0.6-0.8). Arterial waveforms are biphasic with brisk systolic upstrokes at the right common femoral, superficial femoral and popliteal arteries. Biphasic parvus et tardus waveform s with delayed upstrokes and broadened systolic peaks at the right posterior tibial and dorsalis pedi s arteries. The left TBI is 1.08. Arterial waveforms are biphasic with brisk systolic upstrokes throughout the ar teries of the left lower limb. IMPRESSION: 1. Mild arterial occlusive disease to the right lower limb with borderline right YE and TBI and parv us et tardus waveforms with delayed upstrokes in the right posterior tibial and dorsalis pedis arteri es. 2. No significant arterial occlusive disease to left lower limb with normal left TBI. Reviewed, dictated and finalized at location B. ER CUTTING MACHINE OPERATOR IMPRESSION: 1. Mild arterial occlusive disease to the right lower limb with borderline righ t YE and TBI and parvus et tardus waveforms with delayed upstrokes in the righ t posterior tibial and dorsalis pedis arteries. 2. No significant arterial occlusive disease to left lower limb with normal lef t TBI.
--- NOTE | ~2022-01-28 | US_ITS ---
EXAMINATION: US venous doppler [facility] DATE: 01/28/2022 15:02 INDICATION: Evaluation of bilateral lower limb pain TECHNIQUE: Grayscale ultrasound images without and with compression and Doppler ultrasound images of the bilateral lower extremity veins were obtained. COMPARISON: None. FINDINGS: The visualized portions of right common femoral vein, profunda (deep) femoral vein, femoral vein, pop liteal vein, posterior tibial veins, peroneal veins, gastrocnemius vein and greater saphenous vein ou tflow are patent. Moderate-sized anechoic Mann's cyst at the right popliteal fossa. Right standing venous mapping: reflux seconds duration; vein size. Greater saphenous origin: 0 seconds; 6.3 mm. Greater saphenous mid thigh:------ 0 seconds; 2.7 mm. Greater saphenous distal thigh:---- 0 seconds; 3.1 mm. Greater saphenous below knee:--- 0 seconds; 3.1 mm. Greater saphenous proximal calf:-- 0 seconds; 3.0 mm Greater saphenous mid calf:--------- 0 seconds; 2.3 mm. Lesser saphenous proximal calf :-- 0 seconds; 2.0 mm. Lesser saphenous mid calf :--------- 0 seconds; 1.8 mm. The visualized portions of left common femoral vein, profunda femoral vein, femoral vein, popliteal v ein, posterior tibial veins, peroneal veins, gastrocnemius vein and greater saphenous vein outflow ar e patent. Left standing venous mapping: reflux seconds duration; vein size. Greater saphenous origin: 0 seconds; 6.4 mm. Greater proximal thigh:--- 0 seconds; 3.1 mm. Greater saphenous mid thigh:------ 1.5 seconds; 3.7 mm. Greater saphenous distal thigh:---- 1.7 seconds; 3.1 mm. Greater saphenous proximal calf:-- 0 seconds; 1.3 mm Greater saphenous mid calf:--------- >3.5 seconds by provided image, reportedly >5 seconds per sonogr apher notation; 2.3 mm. Lesser saphenous proximal calf :-- 0 seconds; 3.0 mm. Lesser saphenous distal calf :------- 0 seconds; 3.1 mm. IMPRESSION: 1. No deep venous thrombosis in either lower limb. 2. Reflux of at least 3.5 seconds by imaging, reportedly >5 seconds per sausage tier notation at the l eft greater saphenous vein at the mid calf. No other significant venous reflux in either lower limb. Reviewed, dictated and finalized at location B. ISH MAKER IMPRESSION: 1. No deep venous thrombosis in either lower limb. 2. Reflux of at least 3.5 seconds by imaging, reportedly >5 seconds per sonogra pher notation at the left greater saphenous vein at the mid calf. No other sign ificant venous reflux in either lower limb.
== END 2022-01-28 12:46 | disposition home or self-care (01) ==
PROVIDERS: PCP Internal Medicine; Visit Provider Nurse Practitioner Family
DX: M79.661 Pain in right lower leg (principal); M79.662 Pain in left lower leg; I77.1 Stricture of artery
CPT/HCPCS: 93923; 93970

== ENCOUNTER 2022-03-24 11:46 | Outpatient (CLI) | payer OTHER, SELFPAY ==
[2022-03-24 13:32] LABS: Basophils Absolute Auto 0.1 K/mm3 (0.0-0.1); Basophils Percent Auto 0.6 % (0.2-1.2); Eosinophils Absolute Auto 0.3 K/mm3 (0-0.3); Eosinophils Percent Auto 3.8 % (0-4.4); Hematocrit 44.2 % (42.0-52.0); Hemoglobin 14.4 g/dL (14.0-18.0); Immature Granulocyte Absolute 0.04 K/mm3 (0.00-0.031); Immature Granulocyte Percent A 0.5 % (0-0.5); Lymphocytes Absolute Auto 2.98 K/mm3 (0.9-3.2); Lymphocytes Percent Auto 35.8 % (18.3-44.2); Mean Corpuscular HGB Conc 32.6 g/dl (32-36); Mean Corpuscular Hemoglobin 30.6 pg (26-34); Mean Platelet Volume 10.4 fl (7.4-10.4); Monocytes Absolute Auto 0.6 K/mm3 (0.1-0.6); Monocytes Percent Auto 7.6 % (2.6-8.5); Neutrophils Absolute Auto 4.3 K/mm3 (1.3-6.7); Neutrophils Percent Auto 51.7 % (45.5-73.1); Platelet Count Result 143 k/mm3 (150-375); Red Cell Distribution Width 14.1 % (11.5-14.5); White Blood Count 8.3 K/mm3 (4.5-10.0)
[2022-03-24 13:33] LABS: Add Urine Microscopic? YES; Appearance Urine Clear (Clear); Bilirubin Urine Negative (Negative); Blood Urine Trace-Intact (Negative); Color Urine Yellow (Yellow); Glucose Urine UA Negative (Negative); Ketones Urine Negative (Negative); Leukocyte Esterase Ur Negative LEU/UL (Negative); Nitrate Urine Negative (Negative); Protein Urine Negative (Negative); Specific Grav Ur 1.025 (1.001-1.035); Urobilinogen Urine 0.2 mg/dL (<2.0)
[2022-03-24 13:38] LABS: Urine Cotinine NEGATIVE
[2022-03-24 13:39] LABS: Albumin Level 4.2 g/dL (3.5-5.1); Anion Gap 5 mmol/L (8-16); Blood Urea Nitrogen 17 mg/dL (9-20); Calcium 8.5 mg/dL (8.4-10.2); Carbon Dioxide 31 mmol/L (22-30); Chloride 104 mmol/L (98-107); Estimated Glomerular Filt Rate > 60; Glucose 107 mg/dL (65-110); Potassium 4.2 mmol/L (3.4-5.0); Sodium 140 mmol/L (137-145)
[2022-03-24 13:47] LABS: INR 2.4; Prothrombin Time 25.5 Seconds (11.1-14.7)
[2022-03-24 14:06] LABS: Bacteria Urine Trace /hpf; RBC Urine 0-2 /hpf (0-2); Squamous Epithelial Cell Urine Rare /hpf (Few); WBC Urine 0-3 /hpf
== END 2022-03-24 11:47 | disposition home or self-care (01) ==
PROVIDERS: PCP Internal Medicine; Visit Provider Orthopaedic Surgery
DX: Z01.812 Encounter for preprocedural laboratory examination (principal); M17.12 Unilateral primary osteoarthritis, left knee
CPT/HCPCS: 80048; 80307; 81001; 82040; 83036; 85025; 85610; 85730; 87081

== ENCOUNTER 2022-04-07 15:28 | Outpatient (RCR) | payer OTHER, SELFPAY ==
[2022-04-07 16:14] LABS: INR 1.1; Prothrombin Time 13.6 Seconds (11.1-14.7)
== END 2022-07-06 23:59 | disposition home or self-care (01) ==
LOC: ANHLAB 15:28
PROVIDERS: PCP Physician Assistant; Visit Provider Orthopaedic Surgery
DX: Z51.81 Encounter for therapeutic drug level monitoring (principal); Z95.3 Presence of xenogenic heart valve; Z79.01 Long term (current) use of anticoagulants
CPT/HCPCS: 36415; 85610; 85730

== ENCOUNTER 2022-04-08 00:39 | Day surgery (SDC) | payer OTHER, SELFPAY ==
[2022-03-24 11:59] VITALS: BMI 32.3
--- NOTE | 2022-03-24 12:33 | PC.NURSE ---
Report to the Outpatient Waiting Room, entrance under the green pavilion located off [facility], at time 0600 on date _04/08/22 . Planned Procedure Time: __30 . Time changes happen often and if your time is changed the preop area will call you the afternoon before. - You and your visitor will be asked to self-screen and do not enter if you have any COVID symptoms. - Only one visitor is requested with a max of two and NO children visitors are allowed at this time. - The patient visitor may be requested to leave or wait in car when not with patient due to distancing restrictions. - A mask is optional within the hospital. Patients may have clear liquids (water, carbonated beverages, clear teas, apple juice) until 3 hours prior to surgery with a maximum of 20 ounces. - No food from midnight until time of surgery - Infants may have breast milk until 4 hours before surgery, formula 6 hours prior to surgery. - Children will be allowed to drink immediately following surgery. If applicable, please bring a bottle or sippy cup to assist with drinking. Juice, water, soda, and popsicles are readily available. For infants on formula, please bring formula the day of surgery. Pacifiers are allowed. Take the following medications with a SIP of water the morning of surgery: ___NONE Medications to discontinue per physician _HOLD WARFARIN 4 DAYS PRE OP PER DR VERA LAST DOSE 04/03/22. _PT STATES ASPIRIN AND VITAMINS AND SUPPLEMENTS 7 DAYS PRE OP LAST DOSE 03/31/22 Please no make-up, nail turkish, hairspray, perfume, deodorant, or body powder the day of surgery. No jewelry (including any body piercings) or valuables the day of surgery, leave them at home. Please take a shower or bath the night before, or the morning of, surgery with an antibacterial soap. Wear comfortable, loose fitting clothing. Children are encouraged to wear pajamas. - Jewelry must be removed prior to entering the operating room. Rings and piercings that are not removed may be cut off. - The hospital will not accept responsibility for valuables. - Please leave all valuables, including medications, at home the day of surgery. HIBICLENS SHOWER PER DR AWAD If you are going home after surgery, a licensed hazardous materials tanker driver must drive you home. - NO public transportation without another adult if you receive anesthesia. - We recommend that an adult stay with you for 24 hours following discharge. - We also recommend that you do not drive, make important decision, drink alcoholic beverages, or take any drugs that were not prescribed by your health care provider for at least 24 hours after your discharge time. Follow any additional instructions given to you from your surgeon. If you or anyone in your household have experienced Covid symptoms in the past week, please notify your surgeon or the nurse liaison at the phone number below for possible testing. VERBAL AND WRITTEN instructions given to _PATIENT AND SOL and asked if any additional questions and then verbalized understanding. Patient advised to call surgeon office or pre surgery nurse liaison [phone] if any additional questions.
[2022-03-24 12:56] VITALS: BP 157/80; PULSE 82; RESP 18; TEMP 36.7; O2SAT 98
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
--- NOTE | 2022-04-07 14:11 | WPDANESPNB ---
Anes - Peripheral Nerve Block Date/Time: 04/07/22 14:11 I have discussed with the patient/family/POA the placement of a peripheral nerve block for post-operative pain management, including associated risks, benefits, complications, and side effects. Alternative methods of post-operative analgesia were detailed. Questions were solicited and answers provided to the satisfaction of the patient/family/POA. Time-Out: A pre-procedural Time-Out was completed immediately before starting the procedure and confirmed: Patient Identification, Site, Procedure, Patient Position and the Availability of Requisite Equipment. Clinical Indications: Acute post-operative pain management requested by the operative surgeon. Nerve Block Insertion Note Anes-nerve block: adductor canal Patient position: supine Skin prep: chlorhexidine Needle: 22 gauge, stimulating, insulated echogenic needle. Needle length: 80 mm Technique: ultrasound Technique comment: in plane Injectate: bupivacaine 0.25% with epi 5 mcg/ml (30cc) Observations: tolerated well Complications: none Procedure start time:: 730 Procedure end time:: 735
[2022-04-08] VITALS (15 sets, daily range): BP systolic 121–152; BP diastolic 63–81; PULSE 86–110; RESP 12–20; TEMP 35.8–36.3; O2SAT 95–100
--- NOTE | ~2022-04-08 | XR_ITS ---
EXAMINATION: XR knee LT 2V DATE: 04/08/2022 10:53 INDICATION: Postoperative evaluation following left total knee arthroplasty. TECHNIQUE: Anteroposterior and lateral views of the left knee were obtained. COMPARISON: None. FINDINGS: Left total knee arthroplasty without patellar resurfacing appears well seated and in near anatomic al ignment. No fractures identified. Anterior skin elisa and expected postoperative subcutaneous and intra-articular gas. Extensive atherosclerotic calcifications in the arteries at the distal thigh and proximal calf. More chronic surgical clips at the medial aspect of the proximal calf. IMPRESSION: 1. Left total knee arthroplasty, negative for postoperative purposes. Reviewed, dictated and finalized at location L. CTOR ORACLE
[2022-04-08] MEDS: LACTATED RINGERS 1,000 ML 30 ML IV CONT ×2 (06:25→10:39)
[2022-04-08] MEDS: ACETAMINOPHEN 500 MG TABLET 1000 MG PO (06:35)
[2022-04-08] MEDS: TRANEXAMIC ACID 1,000MG/ISO100 1,000 MG/100 ML BAG 200 MG IVPB (06:35)
--- NOTE | 2022-04-08 07:24 | WPDHPUPDATE1 ---
History and Physical Update Update Date/Time: 04/08/22 07:24 History and Physical has been reviewed, including an updated exam of the patient. There are NO changes in the patient's condition. Risks, benefits, and alternatives have been discussed and questions answered. Patient agrees to proceed with procedure.
[2022-04-08] MEDS: ceFAZolin 2 GM/D5W 50 ML 2 GM/50 ML BAG IVPB ×3 (07:45→23:05)
[2022-04-08] MEDS: TRANEXAMIC ACID 1,000 MG/10 ML AMPUL 1000 MG IV PUSH (10:11)
[2022-04-08] MEDS: BUPIVACAINE HCL 0.5% PF 30 ML VIAL 5 ML INFILTRATE (10:27)
[2022-04-08] MEDS: methylPREDNISolone ACETATE 80 MG/ML VIAL IM (10:27)
[2022-04-08] MEDS: fentaNYL CITRATE INJ (*CRX) 100 MCG/2 ML VIAL 25 MCG IV PUSH ×6 (11:03→11:51)
--- NOTE | 2022-04-08 11:09 | W.PM.PROC2 ---
Procedure Note - Detailed Date of Procedure 04/08/22 Pre-op Diagnosis Lt Knee DJD, Rt Knee DJD Post-op Diagnosis Same Procedure Performed L TKA, RIGHT KNEE INJECTION Surgeon Paul Grace MD Anesthesia General Description of Procedure THE LEFT KNEE WAS PREPPED AND DRAPED IN THE STERILE FASHION. THERE WAS A 10 DEGREE FLEXION CONTRACTURE. A MIDLINE SKIN INCISION WAS MADE. A MEDIAL PARAPATELLAR ARTHROTOMY WAS MADE. THE PATELLA WAS EVERTED. THERE WAS TRICOMPARTMENT DJD. THERE WAS MINIMAL PATELLA DJD. AN INTRAMEDULLARY VON WAS PLACED IN THE FEMUR. A DISTAL FEMORAL CUT WAS MADE IN 5 DEGREES OF VALGUS REMOVING APPROXIMATELY 10 MM OF BONE FROM THE DISTAL FEMUR. THE FEMUR WAS SIZED TO 75. A 75 FEMORAL CUTTING BLOCK WAS PLACED IN 3 DEGREES OF EXTERNAL ROTATION AND IN ALIGNMENT WITH ABDIRAHMAN'S LINE AND THE TRANSEPICONDYLAR AXIS. ANTERIOR POSTERIOR AND CHAMFER CUTS WERE MADE. THE CUTS WERE EXCELLENT. NEXT AN INTRAMEDULLARY CUTTING GUIDE WAS PLACED IN THE TIBIA. A TRANS TIBIAL CUT WAS MADE ALONG THE LONG AXIS OF THE TIBIA. APPROXIMATELY 10 MM OF BONE WAS REMOVED FROM THE HIGH SIDE OF THE TIBIA. THE TIBIA WAS THEN PLANED TO A SMOOTH SURFACE. POSTERIOR FEMORAL OSTEOPHYTES WERE REMOVED FROM THE FEMORAL CONDYLES. A 79 TIBIAL TRIAL WAS PLACED IN ALIGNMENT WITH THE 1/3 MEDIAL ASPECT OF THE TIBIAL TUBERCLE. THEN A 75 FEMORAL TRIAL COMPONENT WAS PLACED. BOTH HAD EXCELLENT FITS. EVENTUALLY A 10 MM CR POLYETHYLENE TRIAL COMPONENT WAS PLACED. THE KNEE WAS TAKEN THROUGH A RANGE OF MOTION. THE KNEE CAME OUT TO FULL EXTENSION. THERE WAS NO ABNORMAL TILT TO THE PATELLA. THERE WAS GOOD A/P AND VARUS/VALGUS STABILITY. THERE WAS NO EXCESSIVE ROLL BACK WITH FLEXION. THE TRIAL COMPONENTS WERE REMOVED. THEN A 75 FEMORAL COMPONENT AND 79 TIBIAL COMPONENT WITH A 10 CR POLYETHYLENE COMPONENT WERE CEMENTED INTO PLACE. ONCE THE CEMENT WAS HARD THE KNEE WAS TAKEN THROUGH A ROM AGAIN AND FOUND TO BE STABLE WITH NO PATELLA TILT NO EXCESSIVE ROLL BACK WITH FLEXION AND GOOD STABILITY WITH COMPLETE AND FULL EXTENSION. THE KNEE WAS IRRIGATED WITH STERILE BETADINE AND WATER FOR ABOUT 3 MINUTES. THE BLEEDERS WERE CAUTERIZED. THE ARTHROTOMY WAS REPAIRED WITH NUMBER 1 VICRYL. THE SUB CUTANEOUS LAYER WITH 2-0 VICRYL AND THE SKIN WITH SHAHEEN. THE WOUND WAS WASHED AND A STERILE DRESSING WAS APPLIED. NEXT THE RIGHT KNEE WAS PREPPED STERILE WITH BETADINE AND DEPO MEDROL 80 MG 1 CC AND MARCAINE 0.5% 5 CC WERE INJECTED IN TO THE RIGHT KNEE. THE PATIENT WAS EXTUBATED. Estimated Blood Loss -250.0 Pathology None sent Complications No immediate complications Condition Stable Disposition PACU
--- NOTE | 2022-04-08 11:59 | SUR.PHASEI ---
Lacy[address] at bedside assessing pulses.
[2022-04-08] MEDS: oxyCODONE/ACETAMINOPHEN (*CRX) 5-325 MG TABLET 2 TABLET PO (13:27)
[2022-04-08 14:14] LABS: Estimated CRCL calculation 67 ml/min; Estimated Glomerular Filt Rate > 60
[2022-04-08 16:40] LABS: Glucose Point of Care 189 mg/dl (65-105)
[2022-04-08] MEDS: LOSARTAN POTASSIUM 12.5 MG TABLET PO (17:53)
[2022-04-08] MEDS: WARFARIN (*PBKC) 4 MG TABLET 8 MG PO (17:54)
[2022-04-08] MEDS: CELECOXIB 200 MG CAPSULE PO (17:54)
[2022-04-08] MEDS: SENNA/DOCUSATE SODIUM TABLET 2 TAB PO (17:54)
[2022-04-08] MEDS: ATORVASTATIN 40 MG TABLET PO (21:19)
[2022-04-08] MEDS: oxyCODONE/ACETAMINOPHEN (*CRX) 5-325 MG TABLET 1 TABLET PO (23:04)
[2022-04-09 02:25] VITALS: BP 115/38; PULSE 91; RESP 14; TEMP 36.8; O2SAT 95
[2022-04-09 05:49] VITALS: BP 134/58; PULSE 88; RESP 14; TEMP 36.4; O2SAT 97
[2022-04-09] MEDS: oxyCODONE/ACETAMINOPHEN (*CRX) 5-325 MG TABLET 1 TABLET PO ×3 (06:27→17:42)
[2022-04-09] MEDS: ceFAZolin 2 GM/D5W 50 ML 2 GM/50 ML BAG IVPB (06:27)
[2022-04-09 07:14] LABS: Basophils Percent Auto 0.1 % (0.2-1.2); Eosinophils Absolute Auto 0.1 K/mm3 (0-0.3); Eosinophils Percent Auto 0.5 % (0-4.4); Hematocrit 35.4 % (42.0-52.0); Hemoglobin 11.7 g/dL (14.0-18.0); Immature Granulocyte Absolute 0.12 K/mm3 (0.00-0.031); Immature Granulocyte Percent A 0.8 % (0-0.5); Lymphocytes Absolute Auto 3.43 K/mm3 (0.9-3.2); Lymphocytes Percent Auto 22.8 % (18.3-44.2); Mean Corpuscular HGB Conc 33.1 g/dl (32-36); Mean Corpuscular Hemoglobin 30.7 pg (26-34); Mean Corpuscular Volume 92.9 fl (80-100); Mean Platelet Volume 10.8 fl (7.4-10.4); Monocytes Absolute Auto 1.3 K/mm3 (0.1-0.6); Monocytes Percent Auto 8.8 % (2.6-8.5); Neutrophils Absolute Auto 10.1 K/mm3 (1.3-6.7); Platelet Count Result 127 k/mm3 (150-375); Red Blood Count 3.81 M/mm3 (4.6-6.20); Red Cell Distribution Width 13.7 % (11.5-14.5); White Blood Count 15.1 K/mm3 (4.5-10.0)
[2022-04-09 07:21] LABS: Anion Gap 6 mmol/L (8-16); Blood Urea Nitrogen 22 mg/dL (9-20); Calcium 8.1 mg/dL (8.4-10.2); Carbon Dioxide 27 mmol/L (22-30); Chloride 103 mmol/L (98-107); Estimated CRCL calculation 67 ml/min; Estimated Glomerular Filt Rate > 60; Glucose 107 mg/dL (65-110); Potassium 4.2 mmol/L (3.4-5.0); Sodium 136 mmol/L (137-145)
[2022-04-09 07:24] LABS: INR 1.1; Prothrombin Time 13.9 Seconds (11.1-14.7)
--- NOTE | 2022-04-09 07:39 | P.PNAN_ITS ---
Anes - Prog Note Post-Op Date/Time: 04/09/22 07:39 Cardiovascular status: normal Respiratory status: normal Airway patency: baseline Mental status: baseline Post-Op hydration status: normal Vital Signs: Last Vital Signs Temp 97.6 F 04/09/22 05:49 Pulse 88 04/09/22 05:49 Resp 14 04/09/22 05:49 BP 134/58 L 04/09/22 05:49 Pulse Ox 97 04/09/22 05:49 O2 Del Method Room Air 04/08/22 20:00 O2 Flow Rate 2 04/08/22 12:35 Pain Score (VAS): 4 I/O: Intake & Output 04/08/22 04/08/22 04/09/22 15:59 23:59 07:59 Intake Total 1450 260 Balance 1450 260 Laboratory Tests 04/09/22 06:36 04/09/22 06:36 04/08/22 04/08/22 04/09/22 13:54 16:32 06:36 WBC 15.1 H RBC 3.81 L Hgb 11.7 L Hct 35.4 L MCV 92.9 MCH 30.7 MCHC 33.1 RDW 13.7 Plt Count 127 L MPV 10.8 H Immature Gran % (Auto) 0.8 H Neut % (Auto) 67.0 Lymph % (Auto) 22.8 [place] % (Auto) 8.8 H Eos % (Auto) 0.5 Baso % (Auto) 0.1 L Lymph # (Auto) 3.43 H [place] # (Auto) 1.3 H Eos # (Auto) 0.1 Baso # (Auto) 0.0 Abs Immat Gran (auto) 0.12 H Absolute Neuts (auto) 10.1 H Absolute Nucleated RBC 0.0 Nucleated RBC % 0.0 PT INR Sodium Potassium Chloride Carbon Dioxide Anion Gap BUN Creatinine 1.00 Estim Creat Clear Calc 67 Estimated GFR > 60 Glucose POC Capillary Glucose 189 H Calcium 04/09/22 04/09/22 06:36 06:36 WBC RBC Hgb Hct MCV MCH MCHC RDW Plt Count MPV Immature Gran % (Auto) Neut % (Auto) Lymph % (Auto) [place] % (Auto) Eos % (Auto) Baso % (Auto) Lymph # (Auto) [place] # (Auto) Eos # (Auto) Baso # (Auto) Abs Immat Gran (auto) Absolute Neuts (auto) Absolute Nucleated RBC Nucleated RBC % PT 13.9 INR 1.1 Sodium 136 L Potassium 4.2 Chloride 103 Carbon Dioxide 27 Anion Gap 6 L BUN 22 H Creatinine 1.00 Estim Creat Clear Calc 67 Estimated GFR > 60 Glucose 107 POC Capillary Glucose Calcium 8.1 L Post-procedural complaints: none Patient Feedback: Patient satisfied with anesthetic care.
[2022-04-09] MEDS: SENNA/DOCUSATE SODIUM TABLET 2 TAB PO ×2 (10:56→17:43)
[2022-04-09] MEDS: CELECOXIB 200 MG CAPSULE PO ×2 (10:56→17:43)
[2022-04-09] MEDS: ASPIRIN 81 MG ENTERIC TABLET PO (10:56)
[2022-04-09] MEDS: LOSARTAN POTASSIUM 12.5 MG TABLET PO ×2 (10:57→17:43)
[2022-04-09] MEDS: MULTIVITAMINS THERAPEUTIC TAB (*BKC) 1 TABLET PO (10:57)
[2022-04-09] MEDS: OPTI-GEN TAB 1 TABLET PO (10:57)
[2022-04-09] MEDS: PANTOPRAZOLE 40 MG TABLET PO (10:57)
[2022-04-09] MEDS: FUROSEMIDE 20 MG TABLET PO (10:57)
[2022-04-09] MEDS: FINASTERIDE 5 MG TABLET PO (10:57)
[2022-04-09] MEDS: TAMSULOSIN HCL 0.4 MG CAPSULE PO (10:58)
[2022-04-09] MEDS: polyethylene glycoL 3350 17 GM POWD.PACK PO (10:59)
[2022-04-09 12:12] VITALS: O2SAT 96
[2022-04-09 17:00] VITALS: BP 113/56; PULSE 99; RESP 20; TEMP 36.3; O2SAT 98
[2022-04-09] MEDS: WARFARIN (*PBKC) 10 MG TABLET PO (17:44)
--- NOTE | 2022-04-09 17:44 | PM.PNORT ---
Progress Note: A&P Assessment and Plan (1) Left knee DJD: Code(s): M17.12 - Unilateral primary osteoarthritis, left knee Status: Acute Assessment and Plan: POD 1 DOING WELL. OK TO DC HOME F/U IN 3 WEEKS. (2) Right knee DJD: Qualifiers: Osteoarthritis type: primary Qualified Code(s): M17.11 - Unilateral primary osteoarthritis, right knee Code(s): M17.11 - Unilateral primary osteoarthritis, right knee Status: Acute Subjective Subjective Date/Time Seen: 04/09/22 17:44 POD 1 DOING WELL. NO CALF PAIN. GOOD PROGRESS WITH PT Exam Extrem: Other: VSS AFEBRILE DRESSING DRY [place] INTACT NEG HOMANS SIGN Objective Data Vital Signs Vital Signs: Vital Signs - 24 hr 04/08/22 18:25 04/08/22 20:00 04/08/22 22:25 Temperature 36.2 C L 36.3 C L Pulse Rate 86 103 H Respiratory Rate 19 14 Blood Pressure 132/66 122/69 Pulse Oximetry 97 95 Oxygen Delivery Room Air 04/09/22 02:25 04/09/22 05:49 04/09/22 12:12 Temperature 36.8 C 36.4 C Pulse Rate 91 88 Respiratory Rate 14 14 Blood Pressure 115/38 L 134/58 L Pulse Oximetry 95 97 96 Oxygen Delivery Room Air Intake/Output Intake/Output: Intake & Output 04/06/22 04/07/22 04/08/22 04/09/22 23:59 23:59 23:59 23:59 Intake Total 1810 0 Balance 1810 0 Meds/Results Medications: Active Medications Generic Name Dose Route Start Last Admin Trade Name Freq PRN Reason Stop Dose Admin Acetaminophen 650 mg 04/08/22 12:40 Acetaminophen 325 Mg Tablet PO PRN PRN MILD Pain Aspirin 81 mg 04/09/22 09:00 04/09/22 10:56 Aspirin 81 Mg Enteric Tablet PO 81 mg DAILY RUDY Administration Atorvastatin Calcium 40 mg 04/08/22 21:00 04/08/22 21:19 Atorvastatin 40 Mg Tablet PO 40 mg HS RUDY Administration Celecoxib 200 mg 04/08/22 17:00 04/09/22 10:56 Celecoxib 200 Mg Capsule PO 200 mg BIDWM RUDY Administration Diazepam 5 mg 04/08/22 12:40 Diazepam (*Crx) 5 Mg Tablet PO Q8H PRN Spasms Diphenhydramine HCl 25 mg 04/08/22 12:40 Diphenhydramine Hcl Inj 50 Mg/Ml Vial IV PUSH Q6H PRN Itching Finasteride 5 mg 04/09/22 09:00 04/09/22 10:57 Finasteride 5 Mg Tablet PO 5 mg DAILY RUDY Administration Furosemide 20 mg 04/09/22 09:00 04/09/22 10:57 Furosemide 20 Mg Tablet PO 20 mg QAM RUDY Administration Losartan Potassium 12.5 mg 04/08/22 17:00 04/09/22 10:57 Losartan Potassium 12.5 Mg Tablet PO 12.5 mg BID RUDY Administration Multivitamins Therapeutic 1 tablet 04/09/22 09:00 04/09/22 10:57 Multivitamins Therapeutic Tab (*Bkc) PO 1 tablet DAILY RUDY Administration Multivitamins/Minerals 1 tablet 04/09/22 09:00 04/09/22 10:57 Opti-Gen Tab PO 1 tablet DAILY RUDY Administration Naloxone HCl 0.1 mg 04/08/22 12:40 Naloxone Hcl 0.4 Mg/Ml Vial IV PUSH Q2M PRN Opiate Reversal Ondansetron HCl 4 mg 04/08/22 12:40 Ondansetron Inj 4 Mg/2 Ml Vial IV PUSH Q4H PRN Nausea And Vomiting Oxycodone/Acetaminophen 1 tablet 04/08/22 12:40 04/09/22 12:38 Oxycodone/Acetaminophen (*Crx) 5-325 Mg Tablet PO 1 tablet Q4H PRN Administration Pain Rated 4-6 Oxycodone/Acetaminophen 2 tablet 04/08/22 12:40 04/08/22 13:27 Oxycodone/Acetaminophen (*Crx) 5-325 Mg Tablet PO 2 tablet Q6H PRN Administration Pain Rated 7-10 Pantoprazole Sodium 40 mg 04/09/22 09:00 04/09/22 10:57 Pantoprazole 40 Mg Tablet PO 40 mg QAM RUDY Administration Polyethylene Glycol 17 gm 04/09/22 09:00 04/09/22 10:59 Polyethylene Glycol 3350 17 Gm Powd.Pack PO 17 gm QAM RUDY Administration Senna/Docusate Sodium 2 tab 04/08/22 17:00 04/09/22 10:56 Senna/Docusate Sodium Tablet PO 2 tab BID RUDY Administration Tamsulosin HCl 0.4 mg 04/09/22 09:00 04/09/22 10:58 Tamsulosin Hcl 0.4 Mg Capsule PO 0.4 mg DAILY RUDY Administration Warfarin Sodium 10 mg 04/09/22
--- NOTE | 2022-04-09 17:46 | PM.DS ---
DS: Admitting Diagnosis Discharge Date 04/09/22 Admitting Diagnosis LEFT AND RIGHT KNEE DJD DS: Discharge Diagnosis Discharge Diagnosis (1) Degenerative arthritis of knee, bilateral: Code(s): M17.0 - Bilateral primary osteoarthritis of knee Status: Acute DS: Summary Hospital Course Reason for hospitalization: L TKA, RIGHT KNEE INJECTION Hospital Course: PATIENT WAS ADMITTED S/P TOTAL LEFT KNEE ARTHROPLASTY FOR POSTOPERATIVE MEDICAL MANAGEMENT, PAIN CONTROL AND MOBILIZATION WITH PHYSICAL AND OCCUPATIONAL THERAPY. THE PATIENT PROGRESSED WELL WITH PT/OT. LABS AND VITALS REMAINED STABLE AND PAIN WELL CONTROLLED. THE PATIENT HAS BEEN CLEARED TO BE DISCHARGED HOME. FOLLOW UP APPOINTMENT SCHEDULED. DISCHARGE INSTRUCTIONS DISCUSSED AT LENGTH WITH THE PATIENT. MEDICATIONS REVIEWED. Status at Discharge Functional status at discharge: uses cane/walker Time Spent with Patient Time attestation: Total time spent providing and/or coordinating discharge services: DS: Data Data Completed and Pending Labs on day of discharge: Labs from last 24 hours 04/09/22 04/09/22 04/09/22 06:36 06:36 06:36 WBC 15.1 H RBC 3.81 L Hgb 11.7 L Hct 35.4 L MCV 92.9 MCH 30.7 MCHC 33.1 RDW 13.7 Plt Count 127 L MPV 10.8 H Immature Gran % (Auto) 0.8 H Neut % (Auto) 67.0 Lymph % (Auto) 22.8 Donley % (Auto) 8.8 H Eos % (Auto) 0.5 Baso % (Auto) 0.1 L Lymph # (Auto) 3.43 H Donley # (Auto) 1.3 H Eos # (Auto) 0.1 Baso # (Auto) 0.0 Abs Immat Gran (auto) 0.12 H Absolute Neuts (auto) 10.1 H Absolute Nucleated RBC 0.0 Nucleated RBC % 0.0 PT 13.9 INR 1.1 Sodium 136 L Potassium 4.2 Chloride 103 Carbon Dioxide 27 Anion Gap 6 L BUN 22 H Creatinine 1.00 Estim Creat Clear Calc 67 Estimated GFR > 60 Glucose 107 Calcium 8.1 L Discharge Plan Discharge Patient Disposition: Home Health Service Discharge Instructions: Post Op Total Knee Replacement Instructions Dr. Paul Grace [phone] Your dressing will be changed prior to your discharge. You will be sent home with one additional dressing to be changed on post op day 7 by the home health RN. Your elisa will be removed on the 14th day after surgery and steri-strips will be placed. Please practice good hand hygiene and do not touch your incision in order to prevent infection. You may shower with your dressing but do not submerge in a bath tub. Do not drive or operate machinery until you are released by Dr. Grace. Do not walk without a walker for any reason until you are released by Dr. Grace. Continue to use your ice machine. Please use a towel or pillow case to protect your skin before applying your ice machine. Do NOT place a pillow under your knee. You may use a pillow from the calf down if needed. This will prevent a flexion contracture postoperatively. You may begin use of your CPM machine at home if you have been given one pre-operatively. DO NOT USE WHILE YOU ARE SLEEPING. Your first post op appointment was sent to you via mail preoperatively. If you have any questions or are unable to make your appointment, please contact our office for scheduling questions. Your medications have been sent to your pharmacy. You have been sent home with pain medication. We have also sent you with a stool softener as narcotics can cause constipation. Please keep this in mind during your postoperative recovery. If you are not experiencing regular bowel movements, please contact our office for further instruction. Please contact our office with any questions/concerns regarding your knee at [phone]. per care coordination, [facility] is arranged for RN, PT/OT evaluations and treatment. [facility] will contact you for first visit arrangements. [facility] phone number is [phone]. Patient Instructions: Antibiotic Form Stand Alone Forms:
== END 2022-04-09 18:30 | disposition home health service (06) ==
LOC: ANHSURGERY 06:03 → ANH3MEDSUR 12:56
PROVIDERS: PCP Physician Assistant; Visit Provider Orthopaedic Surgery
PROC: (CPT 27447; principal; 2022-04-08 07:30)
DX: M17.0 Bilateral primary osteoarthritis of knee (principal); G89.18 Other acute postprocedural pain; I11.0 Hypertensive heart disease with heart failure; I50.32 Chronic diastolic (congestive) heart failure; I25.2 Old myocardial infarction; E78.5 Hyperlipidemia, unspecified; I25.10 Atherosclerotic heart disease of native coronary artery without angina pectoris; G47.33 Obstructive sleep apnea (adult) (pediatric); I48.0 Paroxysmal atrial fibrillation; I73.9 Peripheral vascular disease, unspecified; I87.2 Venous insufficiency (chronic) (peripheral); Z95.1 Presence of aortocoronary bypass graft; Z95.2 Presence of prosthetic heart valve; E66.9 Obesity, unspecified; Z68.32 Body mass index [BMI] 32.0-32.9, adult; Z79.82 Long term (current) use of aspirin; Z79.01 Long term (current) use of anticoagulants
CPT/HCPCS: 27447; 20610; 64447; 36415; 73560; 80048; 80307; 81001; 82040; 82565; 82948; 83036; 85025; 85610; 85730; 86850; 86900; 86901; 87081; 97110; 97116; 97161; 97165; 97530; 97535; A9270; C1713; C1776; J0171; J0690; J1040; J1100; J1170; J1885; J2250; J2270; J2370; J2405; J2704; J2795; J3010; J7120

== ENCOUNTER 2022-04-21 16:36 | Inpatient (IN) | payer OTHER, SELFPAY ==
[2022-04-21] VITALS (7 sets, daily range): BP systolic 99–119; BP diastolic 56–64; PULSE 69–115; RESP 18–20; TEMP 36–36.6; O2SAT 96–97; BMI 32.7
--- NOTE | ~2022-04-21 | CT_ITS ---
EXAMINATION: CTA chest PE protocol DATE: 04/21/2022 21:58 INDICATION: Shortness of breath TECHNIQUE: Computed tomography (CT) pulmonary angiogram of the chest was performed with 100 mL Omnipa que-350 intravenous contrast. Additional 3D reconstructions utilizing coronal maximum intensity proje ction (MIP) were performed. Automated exposure control and iterative reconstruction technique were em ployed. The dose-length product was 798.95 mGy-cm. COMPARISON: None FINDINGS: Excellent contrast opacification of the pulmonary arteries. There is mild streak artifact from dense contrast in the superior vena cava and right atrium. Mild scattered respiratory motion artifact most prominent in the left lower lung zone which decreases sensitivity in some of the smaller subsegmental pulmonary arteries. No pulmonary embolism. Mild elevation of the left hemidiaphragm. Mild dependent and bibasilar atelectasis. A couple calcified nodules in the right lower lobe along with calcified ri ght hilar and mediastinal lymph nodes and multiple splenic calcific lesions all consistent with old g ranulomatous disease. No pleural effusion. Heart size is normal. Atherosclerotic coronary artery calc ifications. Postoperative change of prior median sternotomy and coronary artery bypass grafting. Ther e has also been prior aortic valve repair replacement. Mitral annular calcification. Thoracic aorta i s normal in caliber. No pathologically enlarged thoracic lymphadenopathy. Small dystrophic calcific a cyst at the tail of the pancreas consistent with sequela of chronic pancreatitis. There are bridging osteophytes at multiple levels in the spine, consistent with diffuse idiopathic skeletal hyperostosi s (DISH). There are few chronic mild compression fractures in the upper and lower thoracic spine. IMPRESSION: 1. Mild bibasilar atelectasis. No pulmonary embolism or other acute cardiopulmonary disease. Reviewed, dictated and finalized at location A. SLICER IMPRESSION: 1. Mild bibasilar atelectasis. No pulmonary embolism or other acute cardiopulmo nary disease.
--- NOTE | ~2022-04-21 | XR_ITS ---
Corrected Report Charges moved to correct V# 04/22/2022 SLJ This report was recreated on 04/22/2022. Original report was signed by Iain Esquivel M.D. on 04/22/2022 0:05 SEA CAPTAIN. EXAMINATION: XR abdomen obstructive series DATE: 04/21/2022 23:23 INDICATION: Abdominal pain TECHNIQUE: Frontal supine and upright views of the abdomen were obtained. COMPARISON: CT dated 08/11/2017 FINDINGS: Moderate amount of stool scattered throughout the colon. No dilated gas-filled loops of bowel to suggest obstruction. No free intraperitoneal gas. Excreted contrast is seen in the bilateral renal collecting systems and along portions of the ureters resulting from the immediately prior contrast enhanced chest CT. No hydronephrosis. Atherosclerotic calcification of the abdominal aorta and extending into the iliac arteries in the pelvis and femoral arteries at the bilateral inguinal regions. Small calcified nodule at the right lung base consistent with old granulomatous disease. Median sternotomy wires. IMPRESSION: 1. No free intraperitoneal gas or dilated gas-filled loops of bowel to suggest obstruction. Reviewed, dictated and finalized at location A. [facility]
--- NOTE | ~2022-04-21 | US_ITS ---
EXAMINATION: US venous doppler [facility] DATE: 04/21/2022 23:01 INDICATION: Lower limb pain and swelling TECHNIQUE: Grayscale ultrasound images without and with compression and Doppler ultrasound images of the bilateral lower extremity veins were obtained. COMPARISON: None. FINDINGS: The visualized portions of right common femoral vein, profunda (deep) femoral vein, femoral vein, pop liteal vein, posterior tibial veins, peroneal veins, gastrocnemius vein and greater saphenous vein ou tflow are patent. 3.8 x 3.4 x 2.0 cm anechoic Mann's cyst at the right popliteal fossa. The visualized portions of left common femoral vein, profunda femoral vein, femoral vein, popliteal v ein, posterior tibial veins, peroneal veins, gastrocnemius vein and greater saphenous vein outflow ar e patent. IMPRESSION: 1. No deep venous thrombosis in either lower limb. 2. Small to moderate-sized Mann's cyst at the right popliteal fossa. Reviewed, dictated and finalized at location A. CLE COURIER
--- NOTE | ~2022-04-21 | XR_ITS ---
EXAMINATION: XR knee LT 2V DATE: 04/21/2022 23:23 INDICATION: Left total knee arthroplasty 2 weeks prior TECHNIQUE: AP and crosstable lateral views of the left knee were obtained. COMPARISON: 04/08/2022 FINDINGS: Left total knee arthroplasty without patellar resurfacing which appears well seated in near-anatomic alignment. No fracture. Skin elisa and soft tissue swelling anterior to the knee. Likely small left knee joint effusion. Surgical clips the soft tissues at the medial aspect of the calf which may be r elated to prior saphenous vein graft harvest. Combination of atherosclerotic and arteriosclerotic [place] cifications along the arteries of the distal thigh and proximal calf. IMPRESSION: 1. Soft tissue swelling anterior to the knee and small left knee joint effusion post recent left tota l knee arthroplasty. No acute osseous abnormality. Reviewed, dictated and finalized at location A. NE EXTENSION AGENT IMPRESSION: 1. Soft tissue swelling anterior to the knee and small left knee joint effusion post recent left total knee arthroplasty. No acute osseous abnormality.
--- NOTE | 2022-04-21 16:39 | ECG_ITS ---
Measurements Intervals [place] Rate: 104 P: DC: 0 QRS: 22 QRSD: 92 T: 60 QT: 333 QTc: 440 Interpretive Statements ATRIAL FIBRILLATION WITH RAPID VENTRICULAR RESPONSE ABNORMAL RHYTHM ECG COMPARED TO ECG 01/20/2022 10:39:22 ATRIAL FIBRILLATION NOW PRESENT Electronically Signed On 04-22-2022 14:46:09 RACK PUNCHER by Alana Jacobs M.D.
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
[2022-04-21 18:16] LABS: Basophils Absolute Auto 0.1 K/mm3 (0.0-0.1); Basophils Percent Auto 0.6 % (0.2-1.2); Eosinophils Absolute Auto 0.2 K/mm3 (0-0.3); Hematocrit 32.2 % (42.0-52.0); Hemoglobin 10.3 g/dL (14.0-18.0); Immature Granulocyte Absolute 0.47 K/mm3 (0.00-0.031); Immature Granulocyte Percent A 4.3 % (0-0.5); Lymphocytes Absolute Auto 2.44 K/mm3 (0.9-3.2); Lymphocytes Percent Auto 22.1 % (18.3-44.2); Mean Corpuscular Hemoglobin 30.8 pg (26-34); Mean Corpuscular Volume 96.4 fl (80-100); Mean Platelet Volume 9.6 fl (7.4-10.4); Monocytes Absolute Auto 0.8 K/mm3 (0.1-0.6); Monocytes Percent Auto 7.4 % (2.6-8.5); Neutrophils Percent Auto 63.6 % (45.5-73.1); Platelet Count Result 269 k/mm3 (150-375); Red Blood Count 3.34 M/mm3 (4.6-6.20); Red Cell Distribution Width 14.7 % (11.5-14.5)
[2022-04-21 18:27] LABS: Lactic Acid Reflex 1.1 mmol/L (0.7-2.0)
[2022-04-21 18:29] LABS: Alanine Aminotransferase 36 U/L (6-50); Albumin Level 3.6 g/dL (3.5-5.1); Alkaline Phosphatase 73 U/L (38-126); Anion Gap 2 mmol/L (8-16); Aspartate Amino Transferase 30 U/L (17-59); Bilirubin,Total 0.8 mg/dL (0.2-1.3); Blood Urea Nitrogen 20 mg/dL (9-20); Calcium 8.3 mg/dL (8.4-10.2); Carbon Dioxide 31 mmol/L (22-30); Chloride 102 mmol/L (98-107); Estimated CRCL calculation 63 ml/min; Estimated Glomerular Filt Rate > 60; Glucose 119 mg/dL (65-110); INR 2.9; Magnesium 2.2 mg/dL (1.6-2.3); Phosphorus 4.2 mg/dL (2.5-4.5); Potassium 4.4 mmol/L (3.4-5.0); Prothrombin Time 29.5 Seconds (11.1-14.7); Sodium 135 mmol/L (137-145)
[2022-04-21 18:39] LABS: Troponin I < 0.012 ng/mL (0.000-0.034)
[2022-04-21] MEDS: oxyCODONE/ACETAMINOPHEN (*CRX) 5-325 MG TABLET 1 TABLET PO (20:58)
[2022-04-21] MEDS: LOSARTAN POTASSIUM 12.5 MG TABLET PO (20:59)
[2022-04-21] MEDS: METOPROLOL TARTRATE 25 MG TABLET PO (20:59)
[2022-04-21] MEDS: LATANOPROST 0.005% OP SOLN 2.5 ML BTL 1 DROP LEFT EYE (21:00)
[2022-04-21] MEDS: ATORVASTATIN 40 MG TABLET PO (21:00)
[2022-04-21 21:41] LABS: Troponin I < 0.012 ng/mL (0.000-0.034)
--- NOTE | 2022-04-21 23:37 | PC.NURSE ---
patient back from cat scan, us, and xray at 2250.
[2022-04-22] VITALS (17 sets, daily range): BP systolic 100–119; BP diastolic 45–69; PULSE 52–118; RESP 16–20; TEMP 36.6–37; O2SAT 95–99
[2022-04-22 00:56] LABS: Troponin I < 0.012 ng/mL (0.000-0.034)
[2022-04-22] MEDS: ACETAMINOPHEN 500 MG TABLET 1000 MG PO (01:14)
[2022-04-22] MEDS: oxyCODONE/ACETAMINOPHEN (*CRX) 5-325 MG TABLET 1 TABLET PO ×3 (04:44→21:51)
[2022-04-22 05:19] LABS: Basophils Percent Auto 0.4 % (0.2-1.2); Eosinophils Absolute Auto 0.2 K/mm3 (0-0.3); Hematocrit 30.4 % (42.0-52.0); Hemoglobin 9.7 g/dL (14.0-18.0); Immature Granulocyte Absolute 0.34 K/mm3 (0.00-0.031); Immature Granulocyte Percent A 3.4 % (0-0.5); Lymphocytes Absolute Auto 2.58 K/mm3 (0.9-3.2); Mean Corpuscular HGB Conc 31.9 g/dl (32-36); Mean Corpuscular Hemoglobin 30.5 pg (26-34); Mean Corpuscular Volume 95.6 fl (80-100); Mean Platelet Volume 9.5 fl (7.4-10.4); Monocytes Absolute Auto 0.8 K/mm3 (0.1-0.6); Monocytes Percent Auto 7.7 % (2.6-8.5); Neutrophils Percent Auto 60.5 % (45.5-73.1); Platelet Count Result 252 k/mm3 (150-375); Red Blood Count 3.18 M/mm3 (4.6-6.20); Red Cell Distribution Width 14.6 % (11.5-14.5); White Blood Count 9.9 K/mm3 (4.5-10.0)
[2022-04-22 05:33] LABS: INR 2.6; Prothrombin Time 26.7 Seconds (11.1-14.7)
[2022-04-22 05:34] LABS: Lactic Acid Reflex 1.2 mmol/L (0.7-2.0)
[2022-04-22 05:35] LABS: Alanine Aminotransferase 31 U/L (6-50); Albumin Level 3.2 g/dL (3.5-5.1); Alkaline Phosphatase 63 U/L (38-126); Anion Gap 2 mmol/L (8-16); Aspartate Amino Transferase 24 U/L (17-59); Bilirubin,Total 0.8 mg/dL (0.2-1.3); Blood Urea Nitrogen 18 mg/dL (9-20); Carbon Dioxide 28 mmol/L (22-30); Chloride 103 mmol/L (98-107); Estimated CRCL calculation 69 ml/min; Estimated Glomerular Filt Rate > 60; Glucose 112 mg/dL (65-110); Magnesium 2.1 mg/dL (1.6-2.3); Potassium 4.5 mmol/L (3.4-5.0); Sodium 133 mmol/L (137-145)
[2022-04-22 06:26] LABS: Appearance Urine Clear (Clear); Bilirubin Urine Negative (Negative); Blood Urine Trace-intact (Negative); Color Urine Yellow (Yellow); Glucose Urine UA Negative (Negative); Ketones Urine Negative (Negative); Leukocyte Esterase Ur Negative LEU/UL (Negative); Nitrate Urine Negative (Negative); Protein Urine Negative (Negative); Urobilinogen Urine 0.2 mg/dL (<2.0); pH Urine 6.5 (5.0-9.0)
[2022-04-22 06:33] LABS: Bacteria Urine Trace /hpf; Mucus Urine Rare /lpf; RBC Urine 0-2 /hpf (0-2); Squamous Epithelial Cell Urine Rare /hpf (Few); WBC Urine 0-3 /hpf
[2022-04-22 06:36] LABS: Add Urine Microscopic? YES
--- NOTE | 2022-04-22 07:00 | ECHO_ITS ---
Patient Info Name: Steven Shaw Age: 77 years : 1945 Gender: Male Ht: 71 in Wt: 234 lbs BSA: 2.34 m2 HR: 100 bpm BP: 106 / 66 mmHg Heart Rhythm: Atrial Fibrillation, Tachycardia Exam Date: 04/22/2022 10:41 AM Exam Location: [facility] Card Pulmonary Patient Status: Inpatient Admit Date: 04/22/2022 Staff Ordering Physician: Malka Garcia MD Ship Propeller Finisher: Kwadwo Chamberlain, DEV, RT Attending Provider: Amanda Ledesma MD Referring Physician: Radha MELENDREZ; Exam Type: CA echo dop color flow w con Study Info Indications I48.1 - Persistent atrial fibrillation Complete two-dimensional, color flow and Doppler transthoracic echocardiogram is performed with contrast to opacify the left ventricle and to improve the deliniation of the left ventricle endocardial borders. Summary 1. Left ventricular chamber dimension is normal. 2. Left ventricular systolic function is normal, estimated at 65-70%. 3. There is moderately increased left ventricular wall thickness. 4. Right ventricular systolic function is reduced. 5. Left atrial chamber dimension is mildly enlarged. 6. Right atrial chamber dimension is mildly enlarged. 7. The mitral valve annulus is moderately calcified. 8. There is trace mitral valve regurgitation. 9. There is trace tricuspid valve regurgitation. Left Ventricle Left ventricular chamber dimension is normal. Left ventricular systolic function is normal, estimated at 65-70%. There is moderately increased left ventricular wall thickness. Right Ventricle Right ventricular chamber dimension is normal. Right ventricular systolic function is reduced. Left Atria Left atrial chamber dimension is mildly enlarged. Right Atria Right atrial chamber dimension is mildly enlarged. Atrial Septum Intact interatrial septum visualized by color flow imaging. Aortic Valve The aortic valve is not well visualized. There is no aortic valve regurgitation. Pulmonic Valve The pulmonic valve is not well visualized. There is no pulmonic regurgitation. Mitral Valve There is no mitral valve stenosis. There is trace mitral valve regurgitation. The mitral valve annulus is moderately calcified. Tricuspid Valve There is trace tricuspid valve regurgitation. Pericardium/Pleural There is no pericardial effusion. Inferior Vena Cava Dilated inferior vena cava with <50% collapse upon inspiration consistent with elevated right atrial pressure, 15 mmHg. Aorta The aortic root size at the sinus of Valsalva is normal. Left Ventricular Outflow Tract Name Value Normal LVOT Doppler LVOT Peak Gradient 3 mmHg LVOT Mean Gradient 1 mmHg LVOT VTI 18.04 cm LVOT VTI/AV VTI Ratio 0.49 Mitral Valve Name Value Normal MV Doppler MV Decel [place] 1,309.87 cm/s2 MV PHT 0 s MV Area (PHT)
--- NOTE | 2022-04-22 08:39 | PCOTNOTE ---
Re: current Bedrest orders, spoke with Dr. Ledesma, who has yet to see patient this morning. waiting to hear back Re: change in activity order.
[2022-04-22] MEDS: OPTI-GEN TAB 1 TABLET PO (08:53)
[2022-04-22] MEDS: FINASTERIDE 5 MG TABLET PO (08:53)
[2022-04-22] MEDS: MULTIVITAMINS THERAPEUTIC TAB (*BKC) 1 TABLET PO (08:53)
[2022-04-22] MEDS: FUROSEMIDE 20 MG TABLET PO (08:53)
[2022-04-22] MEDS: PANTOPRAZOLE 40 MG TABLET PO (08:54)
[2022-04-22] MEDS: ASPIRIN 81 MG ENTERIC TABLET PO (08:54)
[2022-04-22] MEDS: TAMSULOSIN HCL 0.4 MG CAPSULE PO (08:54)
[2022-04-22] MEDS: METOPROLOL TARTRATE 25 MG TABLET PO (08:55)
[2022-04-22] MEDS: LOSARTAN POTASSIUM 12.5 MG TABLET PO ×2 (08:55→21:51)
[2022-04-22] MEDS: PERFLUTREN LIPID MICROSPHERES 1.5 ML VIAL DILUTED TO 10 ML TOTAL VOLUME IV PUSH (11:02)
--- NOTE | 2022-04-22 11:02 | IVDEFINITY ---
Prior to administration of IV Definity the patient was educated on the risks and benefits of the imaging enhancing agent including potential adverse side effects. The patient verbalized understanding. Allergies were verified. No exclusion criteria were identified and at least one of the following inclusion criteria were met: 1) physician request, 2) patient technically difficult to image (per the [place] [employer] guidelines of two or more segments not discernable within the apical view), or 3) questionable left ventricular function. ?
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
--- NOTE | 2022-04-22 11:53 | PM.CNOR ---
Assessment and Plan Assessment and plan (1) Atrial fibrillation with RVR: Code(s): I48.91 - Unspecified atrial fibrillation Status: Acute Assessment and Plan: As previously mentioned, patient held warfarin for 5 days preoperatively and it was resumed prior to discharge on the [address] Grace. Cardiology following. EKG in the outpatient cardiology clinic revealed AFib. Troponin negative x3. Venous duplex of bilateral lower extremity showed no DVT. Current INR is 2.9 with a goal of 2-3. Per cardiology, plan for REUBEN-guided DCCV tomorrow. (2) History of total knee arthroplasty: Code(s): Z96.659 - Presence of unspecified artificial knee joint Status: Acute Assessment and Plan: History, exam radiographs reviewed with the patient. Radiographs of the left knee reveal left total knee arthroplasty in near [place] alignment, no fracture. Bucklin in place with soft tissue swelling anterior to the knee. Possible small knee joint effusion. Lower extremity Doppler reveals no DVT in bilateral lower extremities. There is noted to be a small to moderate-sized Mann cyst in the right popliteal fossa. On exam, patient is able to flex/extend the left knee within an expected range for this immediate postoperative period. Mild pain with AROM/PROM. No severe pain concerning for acute hematoma. Hemoglobin is currently 9.7 and hemoglobin was 11.7 at discharge. Bucklin intact, incision well approximated. Dressing changed. Will plan for removal of elisa likely prior to discharge from this hospitalization. Patient may continue WBAT with walker. HIGH FALL RISK. PT/OT once cleared by cardiology with upcoming REUBEN-guided DCCV tomorrow. Dr. Grace present for assessment, radiographic interpretation, Doppler review and discussion with patient/family. No further recommendations from an orthopedic standpoint. Will continue to follow while inpatient. History of Present Illness HPI Consult date: 04/22/22 Chief complaint: Afib Narrative: 77-year-old male known to the Orthopedic Service for a recent left total knee arthroplasty on April 08, [address] Grace. Prior to surgical intervention, patient was evaluated by his geriatric personal care aide and cleared for surgery. He was told to hold his Coumadin for 5 days prior to surgery and resume the Coumadin immediately following. Patient is now presenting to the emergency room with complaints of weakness and chest pain. He also has been complaining of feeling generally unwell since the date of surgery with lower extremity edema and intermittent shortness of breath. The patient had been to a cardiology appointment and was sent to the hospital for direct admission on 04/21/2022. Per Cardiology, the EKG performed in office revealed AFib with heart rate in the 100s. Orthopedic service consulted as patient is in the postoperative period in complaining of left knee pain. Review of Systems Review of Systems: All systems reviewed & are unremarkable except as noted in HPI and below PMFSH Past Medical History Medical History Arterial insufficiency Atherosclerotic heart disease BPH (benign prostatic hyperplasia) Chronic diastolic (congestive) heart failure Colon polyps Degenerative arthritis of knee, bilateral Degenerative joint disease of knee Essential (primary) hypertension Glaucoma Hx of colonic polyps Hx of myocardial infarction Hyperlipidemia Left knee DJD Obstructive sleep apnea Paroxysmal atrial fibrillation Peripheral vascular disease Retinal artery occlusion Right knee DJD Venous insufficiency of both lower extremities Vision abnormalities Blind right eye Surgical History Surgical History H/O aortic valve replacement with 2x coronary bypass, 2013 H/O cataract extraction History of aortic valve replacement with bioprosthetic valve History of appendectomy History of
--- NOTE | 2022-04-22 17:03 | PM.IMPN ---
Progress Note: A&P Assessment and Plan (1) Paroxysmal atrial fibrillation: Code(s): I48.0 - Paroxysmal atrial fibrillation Status: Acute Assessment and Plan: -cardiology has been consulted. Daily PT INR. The patient is on Coumadin. -the patient was placed on metoprolol. An echo has been ordered. HPI-Narrative: This is a 77-year-old male patient who had a left total knee arthroplasty per Dr. Grace on 04/08/2022.? The patient stated that every since he went home he has not been feeling very well.? As soon as the patient came home he was having nausea and vomiting and diarrhea for 2-3 days and felt like maybe he had loose poison.? He is also having difficulty with his left leg with pain and has not been able to get the pain under control.? The patient's vomiting has stopped he only had it for 2 days after he returned home.? The patient also has been treated for UTI and stated that he had a small-bowel obstruction.? He has had increased swelling to his lower extremities and is short of breath with exertion.? The patient also had a twinge of chest pain earlier this morning it was very brief and did last very long but is a sharp pain to the epigastric area.? The patient is on Coumadin and he had to hold his Coumadin prior to the surgery and did not take it for several days after surgery.? The patient is very weak and has no energy.? He has not been active because of the pain in his leg.? The patient had been to his cardiology appointment and was sent over to the hospital for direct admit.? The patient is being admitted to observation status on the date of service of 04/21/2022. 04/22/2022 interval history: status post right knee total arthroplasty on 04/08/2022 patient stats since the surgery patient continue to have pain, and swelling, and just not improving, he presented to ER for futher evaluation, upon arrival patient was in new onset A.Fib RVR patient was started on metoprolol for rate control, patient is already being anticoagulted with Warfarin INR 2.6 and patient will be seen by nub card tender and may consider REUBEN guided cardioversion patient, if patient does not convert sinus rhythm, for him knee patient will be seen by his orthopedics and further recommendation to follow. (2) Essential (primary) hypertension: Code(s): I10 - Essential (primary) hypertension Status: Acute Assessment and Plan: -patient was on metoprolol b.i.d. Continue with losartan -continue with Lasix (3) BPH (benign prostatic hyperplasia): Code(s): N40.0 - Benign prostatic hyperplasia without lower urinary tract symptoms Status: Acute Assessment and Plan: Continue with finasteride (4) Obstructive sleep apnea: Code(s): G47.33 - Obstructive sleep apnea (adult) (pediatric) Status: Acute Assessment and Plan: Home CPAP titration (5) Benign non-nodular prostatic hyperplasia with lower urinary tract symptoms: Code(s): N40.1 - Benign prostatic hyperplasia with lower urinary tract symptoms Status: Acute Assessment and Plan: Patient was recently treated for UTI. Recheck urinalysis. (6) Chronic diastolic (congestive) heart failure: Code(s): I50.32 - Chronic diastolic (congestive) heart failure Status: Acute Assessment and Plan: -an echo has been ordered. -continue with Lasix Last echo 04/25/2021 with a normal EF and pseudonormal diastolic dysfunction grade 2 EF was estimated at 69% (7) History of aortic valve replacement with bioprosthetic valve: Code(s): Z95.3 - Presence of xenogenic heart valve Status: Acute Assessment and Plan: Echo ordered Aortic tissue valve (8) Glaucoma: Code(s): H40.9 - Unspecified glaucoma Status: Acute Assessment and Plan: Continue with home medications. (9) History of total knee arthroplasty: Code(s): Z96.659 - Presence of unspecified artificial knee joint Status: Acute Assessme
[2022-04-22] MEDS: WARFARIN (*PBKC) 4 MG TABLET 8 MG PO (17:50)
[2022-04-22] MEDS: LATANOPROST 0.005% OP SOLN 2.5 ML BTL 1 DROP LEFT EYE (21:50)
[2022-04-22] MEDS: ATORVASTATIN 40 MG TABLET PO (21:51)
[2022-04-22] MEDS: METOPROLOL TARTRATE 50 MG TAB PO (21:51)
[2022-04-23] VITALS (16 sets, daily range): BP systolic 97–128; BP diastolic 55–94; PULSE 70–176; RESP 9–25; TEMP 36.6–36.7; O2SAT 96–100
[2022-04-23 05:10] LABS: Hematocrit 29.4 % (42.0-52.0); Hemoglobin 9.4 g/dL (14.0-18.0); Mean Corpuscular Volume 93.9 fl (80-100); Mean Platelet Volume 9.7 fl (7.4-10.4); Platelet Count Result 246 k/mm3 (150-375); Red Blood Count 3.13 M/mm3 (4.6-6.20); Red Cell Distribution Width 14.7 % (11.5-14.5); White Blood Count 8.5 K/mm3 (4.5-10.0)
[2022-04-23 05:21] LABS: Alanine Aminotransferase 30 U/L (6-50); Albumin Level 2.9 g/dL (3.5-5.1); Alkaline Phosphatase 62 U/L (38-126); Anion Gap 3 mmol/L (8-16); Aspartate Amino Transferase 26 U/L (17-59); Bilirubin,Total 0.8 mg/dL (0.2-1.3); Blood Urea Nitrogen 19 mg/dL (9-20); Calcium 7.9 mg/dL (8.4-10.2); Carbon Dioxide 27 mmol/L (22-30); Chloride 106 mmol/L (98-107); Estimated CRCL calculation 69 ml/min; Estimated Glomerular Filt Rate > 60; Glucose 112 mg/dL (65-110); Magnesium 2.1 mg/dL (1.6-2.3); Potassium 4.6 mmol/L (3.4-5.0); Sodium 136 mmol/L (137-145)
--- NOTE | 2022-04-23 08:01 | PCPTNOTE ---
Pt is currently on bedrest. Will see pt for therapy when pt becomes medically appropriate. Will Follow.
--- NOTE | 2022-04-23 08:41 | ECG_ITS ---
Measurements Intervals [place] Rate: 68 P: 55 LA: 189 QRS: 14 QRSD: 87 T: 57 QT: 391 QTc: 418 Interpretive Statements SINUS RHYTHM POSSIBLE LEFT ATRIAL ENLARGEMENT [-0.1mV P WAVE IN V1/V2] COMPARED TO ECG 04/23/2022 08:47:23 SINUS RHYTHM NOW PRESENT Electronically Signed On 04-23-2022 16:13:21 WATER CARTER by Alana Jacobs M.D.
[2022-04-23 09:30] LABS: INR 2.2; Prothrombin Time 23.4 Seconds (11.1-14.7)
--- NOTE | 2022-04-23 09:30 | ECG_ITS ---
Measurements Intervals [place] Rate: 98 P: [place]: 0 QRS: 17 QRSD: 90 T: 54 QT: 347 QTc: 444 Interpretive Statements ATRIAL FIBRILLATION ABNORMAL RHYTHM ECG COMPARED TO ECG 04/21/2022 16:52:03 HEART RATE IS SLOWER NOW Electronically Signed On 04-23-2022 16:12:55 SPOT CHECKER by Alana Jacobs M.D.
--- NOTE | 2022-04-23 10:00 | WPDTECDV ---
REUBEN with Cardioversion Date of procedure: 04/23/22 Procedure Type: Date of Procedure: 04/23/2022 Brief History Of Present Illness: Patient is a pleasant 77-year-old male who is referred for REUBEN-guided DCCV for atrial fibrillation with RVR. Procedure In Detail: After verbal and written informed consent was obtained, the patient risks, benefits, and alternatives explained in detail. The patient agreed to proceed with the plan of care as outlined above.?The patient was evaluated at bedside in the [facility] room.?The posterior oropharynx, neck, and jaw angle all within normal limits on examination. Lungs were clear to auscultation. See pre-sedation note for further details. The patient was then placed in the appropriate 30 to 45 degree angle supine position at a slight left lateral decubitus position.?Patient was monitored throughout the study with telemetry, oxygen saturation, end-tidal CO2 monitoring, blood pressure, heart rate, and respirations.? The posterior hypopharynx was then locally anesthetized using repeated administration of Hurricaine spray as well as gargled viscous lidocaine.? After local anesthetic of the posterior hypopharynx was achieved and the oral bite block placed, moderate sedation was administered.? After confirmation of adequate moderate sedation, the transesophageal echocardiogram probe was advanced through the oral bite block into the posterior hypopharynx and into the esophagus easily and without complication.? Multiple, multiplanar echocardiographic images were obtained in multiple standard re- projections. At the conclusion of the study, the transesophageal echocardiogram probe was removed easily and without complication.? The patient tolerated the procedure well without difficulty. Patient was in atrial fibrillation with RVR during the study. After probe was removed and patient remained adequately sedated, electrical cardioversion was performed with 1 shock at 250 joules, restoring sinus rhythm. Post-cardioversion EKG confirmed sinus rhythm. Moderate Sedation/Anesthesia administration: Patient reports no prior problems with sedation/anesthesia. Please see pre-sedation noted for physical examination documentation. As noted above, after adequate local anesthesia of the posterior hypopharynx was achieved, a total of?4mg intravenous Versed and a total of 100mcg intravenous Fentanyl in multiple divided doses was administered for moderate sedation.? Sedation start time was 09:40 and end time was 09:57 for a total intra-service/procedure face-face time of?17 minutes.? Sedation was administered by a qualified/certified observer Danielle Page RN under my supervision with intra-procedure [id number] observation and management throughout the entirety of the procedure.? There were no other issues or complications and patient tolerated the procedure well. See post-anesthesia documentation. FINDINGS: LEFT VENTRICLE: Size and systolic function were within normal limits without wall motion abnormalities with ejection fraction of 65-70%. RIGHT VENTRICLE:? Size within normal limits. LEFT ATRIUM: Mildly enlarged. RIGHT ATRIUM: Not well visualized during this study. INTERATRIAL SEPTUM: ? Interatrial septum is anatomically normal. MITRAL VALVE: Calcified mitral annulus. Leaflets are normal. There is mild mitral regurgitation. AORTIC VALVE: Bioprosthetic aortic valve is well seated. TRICUSPID VALVE: Not well visualized during this study. PULMONIC VALVE: Pulmonic valve was not well visualized LEFT ATRIAL APPENDAGE: Anatomically normal structure without thrombus or vegetation identified. Definity was administered for better visualization of the appendage and to definitively rule out thrombus. PERICARDIUM: The pericardium was anatomically normal without significant pericardial effusion. ? AORTA: Deep transgastric views were not obtained. Midesophageal views of the aorta showed mild atherosclerotic plaque. Complications: None
--- NOTE | 2022-04-23 10:09 | PM.PNCARD ---
Progress Note: A&P Assessment and Plan (1) Atrial fibrillation with RVR: Code(s): I48.91 - Unspecified atrial fibrillation Status: Acute (2) History of total knee arthroplasty: Code(s): Z96.659 - Presence of unspecified artificial knee joint Status: Acute (3) Obesity (BMI 30-39.9): Code(s): E66.9 - Obesity, unspecified Status: Acute (4) Essential (primary) hypertension: Code(s): I10 - Essential (primary) hypertension Status: Acute (5) History of aortic valve replacement with bioprosthetic valve: Code(s): Z95.3 - Presence of xenogenic heart valve Status: Acute (6) Peripheral vascular disease: Code(s): I73.9 - Peripheral vascular disease, unspecified Status: Acute (7) Venous insufficiency of both lower extremities: Code(s): I87.2 - Venous insufficiency (chronic) (peripheral) Status: Acute (8) Chronic diastolic (congestive) heart failure: Code(s): I50.32 - Chronic diastolic (congestive) heart failure Status: Acute (9) Retinal artery occlusion: Code(s): H34.9 - Unspecified retinal vascular occlusion Status: Acute (10) Obstructive sleep apnea: Code(s): G47.33 - Obstructive sleep apnea (adult) (pediatric) Status: Acute (11) Hyperlipidemia: Code(s): E78.5 - Hyperlipidemia, unspecified Status: Acute Plan REUBEN-guided DCCV successfully done this morning. Sinus rhythm restored with 1 shock at 250 joules. Continue beta rodriguez. Continue Warfarin for anticoagulation. Goal INR is 2-3. Will have patient follow-up with Dr. Omer in clinic. Subjective Date/time seen: 04/23/22 10:09 Interval history: Reason for visit: Atrial fibrillation with RVR HPI: We are consulted for atrial fibrillation with RVR. 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 He follows with Dr. Omer. Patient recently underwent left total knee arthroplasty with Dr. Grace on 04/08. Since his surgery, patient has been feeling very weak and tired. Has been having lower extremity edema. No chest pain. Some shortness of breath. No orthopnea. Patient had called our office and was asked to come in to do EKG. EKG showed AFib with HR in the 100s. ER evaluation showed Hgb of 9.7 (was 14.4 back in 03/24/2022). INR 2.9 on admission, with repeat at 2.6 this morning. Troponins negative x 3. TSH normal. Venous duplex of bilateral lower extremities showed no DVT in either limb and a small-moderate sized Mann's cyst at the right popliteal fossa. CTA showed mild atelectasis. No PE or other acute cardiopulmonary disease. Ortho has been consulted for left knee pain. Date of service: No acute events overnight. Remains in atrial fibrillation with RVR. NPO for REUBEN-guided DCCV. Review of Systems Review of Systems: 8-point ROS obtained. Negative, unless stated in HPI. Exam Const: General: comfortable and no acute distress HENMT: Mouth: Yes moist mucous membranes Eyes: General: appearance normal, both eyes and all related structures Sclera: sclerae normal Neck: Neck: supple Resp: Effort & Inspection: normal respiratory effort Auscultation: clear to auscultation bilaterally Cardio: Rate: tachycardic Rhythm: abnormal rhythm irregularly irregular Heart sounds: no murmurs GI: GI Palp: Yes Soft to palpation and No Tenderness to palpation present (GI) Skin: General skin exam: normal color Neuro: Speech: normal speech Extrem: Other: 2+ LLE edema Psych: Mental Status: mental status grossly normal Affect: normal affect Objective Data Vital Signs Vital Signs: Vital Signs - 24 hr 04/22/22 11:49 04/22/22 14:00 04/22/22 12:00 Temperature 37.0 C Pulse Rate 52 L 104 H 118 H Respiratory Rate 18 Blood Pressure 119/69 Pulse Oximetry 99 Oxygen De
[2022-04-23] MEDS: PERFLUTREN LIPID MICROSPHERES 1.5 ML VIAL DILUTED TO 10 ML TOTAL VOLUME IV PUSH (10:10)
[2022-04-23] MEDS: LOSARTAN POTASSIUM 12.5 MG TABLET PO (11:40)
[2022-04-23] MEDS: PANTOPRAZOLE 40 MG TABLET PO (11:40)
[2022-04-23] MEDS: FINASTERIDE 5 MG TABLET PO (11:40)
[2022-04-23] MEDS: FUROSEMIDE 20 MG TABLET PO (11:40)
[2022-04-23] MEDS: OPTI-GEN TAB 1 TABLET PO (11:40)
[2022-04-23] MEDS: TAMSULOSIN HCL 0.4 MG CAPSULE PO (11:40)
[2022-04-23] MEDS: METOPROLOL TARTRATE 50 MG TAB PO (11:40)
[2022-04-23] MEDS: ASPIRIN 81 MG ENTERIC TABLET PO (11:48)
--- NOTE | 2022-04-23 12:16 | PM.IMPN ---
Progress Note: A&P Assessment and Plan (1) Paroxysmal atrial fibrillation: Code(s): I48.0 - Paroxysmal atrial fibrillation Status: Acute Assessment and Plan: -cardiology has been consulted. Daily PT INR. The patient is on Coumadin. -the patient was placed on metoprolol. An echo has been ordered. HPI-Narrative: This is a 77-year-old male patient who had a left total knee arthroplasty per Dr. Grace on 04/08/2022.? The patient stated that every since he went home he has not been feeling very well.? As soon as the patient came home he was having nausea and vomiting and diarrhea for 2-3 days and felt like maybe he had loose poison.? He is also having difficulty with his left leg with pain and has not been able to get the pain under control.? The patient's vomiting has stopped he only had it for 2 days after he returned home.? The patient also has been treated for UTI and stated that he had a small-bowel obstruction.? He has had increased swelling to his lower extremities and is short of breath with exertion.? The patient also had a twinge of chest pain earlier this morning it was very brief and did last very long but is a sharp pain to the epigastric area.? The patient is on Coumadin and he had to hold his Coumadin prior to the surgery and did not take it for several days after surgery.? The patient is very weak and has no energy.? He has not been active because of the pain in his leg.? The patient had been to his cardiology appointment and was sent over to the hospital for direct admit.? The patient is being admitted to observation status on the date of service of 04/21/2022. 04/23/2022 interval history: status post right knee total arthroplasty on 04/08/2022 patient stats since the surgery patient continue to have pain, and swelling, and just not improving, he presented to ER for futher evaluation, upon arrival patient was in new onset A.Fib RVR patient was started on metoprolol for rate control, patient is already being anticoagulted with Warfarin INR 2.2 and patient is seen by beamer operator and remains in A. Fib patient is scheudled to have REUBEN guided cardioversion today, will follow up, for knee patient is seen by his orthopedics there is no dvt in the lower extremities, suspect swelling of the left knee possibly related to backer cyst, and further recommendation to follow. (2) Essential (primary) hypertension: Code(s): I10 - Essential (primary) hypertension Status: Acute Assessment and Plan: -patient was on metoprolol b.i.d. Continue with losartan -continue with Lasix (3) BPH (benign prostatic hyperplasia): Code(s): N40.0 - Benign prostatic hyperplasia without lower urinary tract symptoms Status: Acute Assessment and Plan: Continue with finasteride (4) Obstructive sleep apnea: Code(s): G47.33 - Obstructive sleep apnea (adult) (pediatric) Status: Acute Assessment and Plan: Home CPAP titration (5) Benign non-nodular prostatic hyperplasia with lower urinary tract symptoms: Code(s): N40.1 - Benign prostatic hyperplasia with lower urinary tract symptoms Status: Acute Assessment and Plan: Patient was recently treated for UTI. Recheck urinalysis. (6) Chronic diastolic (congestive) heart failure: Code(s): I50.32 - Chronic diastolic (congestive) heart failure Status: Acute Assessment and Plan: -an echo has been ordered. -continue with Lasix Last echo 04/25/2021 with a normal EF and pseudonormal diastolic dysfunction grade 2 EF was estimated at 69% (7) History of aortic valve replacement with bioprosthetic valve: Code(s): Z95.3 - Presence of xenogenic heart valve Status: Acute Assessment and Plan: Echo ordered Aortic tissue valve (8) Glaucoma: Code(s): H40.9 - Unspecified glaucoma Status: Acute Assessment and Plan: Continue with home medications. (9) History of total knee arthroplasty: [place]
--- NOTE | 2022-04-23 13:31 | PM.DS ---
DS: Admitting Diagnosis Discharge Date 04/23/2022 Admitting Diagnosis Irregular heartbeat DS: Discharge Diagnosis Discharge Diagnosis (1) Paroxysmal atrial fibrillation: Code(s): I48.0 - Paroxysmal atrial fibrillation Status: Acute Assessment and Plan: -cardiology has been consulted. Daily PT INR. The patient is on Coumadin. -the patient was placed on metoprolol. An echo has been ordered. HPI-Narrative: This is a 77-year-old male patient who had a left total knee arthroplasty per Dr. Grace on 04/08/2022.? The patient stated that every since he went home he has not been feeling very well.? As soon as the patient came home he was having nausea and vomiting and diarrhea for 2-3 days and felt like maybe he had loose poison.? He is also having difficulty with his left leg with pain and has not been able to get the pain under control.? The patient's vomiting has stopped he only had it for 2 days after he returned home.? The patient also has been treated for UTI and stated that he had a small-bowel obstruction.? He has had increased swelling to his lower extremities and is short of breath with exertion.? The patient also had a twinge of chest pain earlier this morning it was very brief and did last very long but is a sharp pain to the epigastric area.? The patient is on Coumadin and he had to hold his Coumadin prior to the surgery and did not take it for several days after surgery.? The patient is very weak and has no energy.? He has not been active because of the pain in his leg.? The patient had been to his cardiology appointment and was sent over to the hospital for direct admit.? The patient is being admitted to observation status on the date of service of 04/21/2022. 04/23/2022 interval history: status post right knee total arthroplasty on 04/08/2022 patient stats since the surgery patient continue to have pain, and swelling, and just not improving, he presented to ER for futher evaluation, upon arrival patient was in new onset A.Fib RVR patient was started on metoprolol for rate control, patient is already being anticoagulted with Warfarin INR 2.2 and patient is seen by egg smeller and remains in A. Fib patient is scheudled to have REUBEN guided cardioversion today, will follow up, for knee patient is seen by his orthopedics there is no dvt in the lower extremities, suspect swelling of the left knee possibly related to backer cyst, and further recommendation to follow. (2) Essential (primary) hypertension: Code(s): I10 - Essential (primary) hypertension Status: Acute Assessment and Plan: -patient was on metoprolol b.i.d. Continue with losartan -continue with Lasix (3) BPH (benign prostatic hyperplasia): Code(s): N40.0 - Benign prostatic hyperplasia without lower urinary tract symptoms Status: Acute Assessment and Plan: Continue with finasteride (4) Obstructive sleep apnea: Code(s): G47.33 - Obstructive sleep apnea (adult) (pediatric) Status: Acute Assessment and Plan: Home CPAP titration (5) Benign non-nodular prostatic hyperplasia with lower urinary tract symptoms: Code(s): N40.1 - Benign prostatic hyperplasia with lower urinary tract symptoms Status: Acute Assessment and Plan: Patient was recently treated for UTI. Recheck urinalysis. (6) Chronic diastolic (congestive) heart failure: Code(s): I50.32 - Chronic diastolic (congestive) heart failure Status: Acute Assessment and Plan: -an echo has been ordered. -continue with Lasix Last echo 04/25/2021 with a normal EF and pseudonormal diastolic dysfunction grade 2 EF was estimated at 69% (7) History of aortic valve replacement with bioprosthetic valve: Code(s): Z95.3 - Presence of xenogenic heart valve Status: Acute Assessment and Plan: Echo ordered Aortic tissue valve (8) Glaucoma: Code(s): H40.9 - Unspecified glaucoma Status: Acute Asse
[2022-04-23] MEDS: oxyCODONE/ACETAMINOPHEN (*CRX) 5-325 MG TABLET 1 TABLET PO (14:44)
== END 2022-04-23 15:36 | disposition home health service (06) | DRG 309 ==
PROVIDERS: Internal Medicine; Nurse Practitioner; Admitting Provider Family Medicine; PCP Physician Assistant; Visit Provider Family Medicine
PROC: 5A2204Z Restoration of Cardiac Rhythm, Single (ICD-10-PCS; principal; 2022-04-23 09:00)
PROC: B24BZZ4 Ultrasonography of Heart with Aorta, Transesophageal (ICD-10-PCS; CPT 93312; 2022-04-23 09:00)
DX: I48.0 Paroxysmal atrial fibrillation (principal); I50.32 Chronic diastolic (congestive) heart failure; I11.0 Hypertensive heart disease with heart failure; M71.22 Synovial cyst of popliteal space [Baker], left knee; G47.33 Obstructive sleep apnea (adult) (pediatric); N40.1 Benign prostatic hyperplasia with lower urinary tract symptoms; H40.9 Unspecified glaucoma; Z96.652 Presence of left artificial knee joint; I73.9 Peripheral vascular disease, unspecified; I25.10 Atherosclerotic heart disease of native coronary artery without angina pectoris; M17.0 Bilateral primary osteoarthritis of knee; E78.5 Hyperlipidemia, unspecified; I87.2 Venous insufficiency (chronic) (peripheral); Z95.2 Presence of prosthetic heart valve; I25.2 Old myocardial infarction; Z98.42 Cataract extraction status, left eye; Z98.41 Cataract extraction status, right eye; Z90.49 Acquired absence of other specified parts of digestive tract; Z95.1 Presence of aortocoronary bypass graft; Z79.82 Long term (current) use of aspirin; Z79.01 Long term (current) use of anticoagulants; E66.9 Obesity, unspecified; Z68.32 Body mass index [BMI] 32.0-32.9, adult
CPT/HCPCS: 36415; 71275; 73560; 74019; 80053; 81001; 83605; 83735; 84100; 84443; 84484; 85025; 85027; 85610; 87040; 92960; 93005; 93312; 93320; 93325; 93970; 97165; 97535; A9270; C8925; C8929; G0378; J2250; J3010; Q9957; Q9967

== ENCOUNTER 2022-05-12 08:00 | Outpatient (RCR) | payer OTHER, SELFPAY ==
--- NOTE | 2022-05-06 12:53 | PTOPEVAL1 ---
Assessment and note entered by Trudi Gallegos, PT Evaluation Information Assessment Status Evaluation Diagnosis L TKA Onset 04/08/22 Subjective Information Pt reports not feeling good since the day he left the hospital after his L TKA. Pt reports returning to hospital 1 week later due to having A-fib and needing Cardioversion. Pt reports his knee swells after walking and exercises. Pt reports he leaves his ice on at all times. Pt does state this is the smallest his knee looks (meaning redeuce edema) since leaving the hospital. Reported Pain Level Pain Score 6: Self Report Additional Pain Score Comments Pt's pain is at 3/10 aching pain (continuously), but increases with gait/exercises to as high as 8/ 10. Pt's highest pain is 6/10 today with exercises . Assessment PT Clinical Summary Pt is a 77 year old male who presents s/p L TKA on 04/08/22. Pt's L knee flexion 85 degrees and extension 20 degrees. Pt having having constant L knee pain of 3/10 that increases to as high as 8/ 10 with gait/exercises. Pt noted to have multiple gait deficts including excessively L knee flexion during stance phase of gait and lack L heel strike . Pt demo gait with cane vs 2w/w - pt encouraged to continue to use 2 w/w until pain and gait mechanics improve. Pt educated and trained on cold modalites/elevation. Pt educated on NOT using heat at this time. Pt's HEP reviewed and trained on how to advance HEP as tolerated. Pt will benefit from skilled therapy to increase L knee active ROM/strength, reduce L knee pain, and normalize gait mechanics with least restrictive device/no device (if able). Plan of Care Interventions Electrical Stimulation,Gait Training,Hot Pack/Cold Pack,Manual Therapy,Neuro Re-education,Patient/ Caregiver Educati,Therapeutic Activities, Therapeutic Exercise,Ultrasound PT Services Indicated Yes Treatment Frequency and 2x/week for 10 weeks Duration These treatments will address the objective and functional deficits as defined above. The patient will be advanced safely and appropriately in order for the patient to progress towards his/her prior level of function. Additional exercises will be introduced and as well as a comprehensive home exercise program upon discharge, if needed, ?to ensure carryover of functional gains achieved in the clinic. This treatment plan has been reviewed and agreement upon by the patient.
--- NOTE | 2022-05-22 12:34 | PCPTNOTE ---
Admitting Provider: Attending Provider: Paul Grace MD Patient:Steven Shaw Date of :1945 Patient has not returned for any further treatments since 05/12/2022. He called and stated he would not be returning to therapy, therefore he will be discharged at this time. Patient?s initial visit was on 05/06/2022 08:00 and he had a total of 3 visits. The goals have been not been met. Thank you for referring this patient to [facility]. Please review, sign, date and return this discharge summary YASMANI. I have been updated about the patient's current status and I agree with discharge from the above service at this time. Referring Physician Date
--- NOTE | 2022-05-22 12:42 | PTOPDC ---
Assessment and note entered by Trudi Gallegos, PT Assessment Status Discharge - Pt Not Present Diagnosis L TKA Onset 04/08/22 Subjective Information Pt reports not feeling good since the day he left the hospital after his L TKA. Pt reports returning to hospital 1 week later due to having A-fib and needing Cardioversion. Pt reports his knee swells after walking and exercises. Pt reports he leaves his ice on at all times. Pt does state this is the smallest his knee looks (meaning redeuce edema) since leaving the hospital. Assessment PT Clinical Summary Pt attended a total of 3 sessions including evaluation. At his last visit he reported his pain was a 3/10, that he was doing better, and had only had one pain pill in the previous 3 days. Pt also showed greater ease of transitional mobility, improved range, and improve gait. However his called and cancelled his remaining appointments stating he hurt too bad. Attempted to reenforce education related to home program intensity, cryotherapy, and progression. However pt cancelled remaining appointments with our facility. Thus pt is being discharged per request .
== END 2022-05-28 10:10 | disposition home or self-care (01) ==
LOC: ANHHIPT 08:00
PROVIDERS: PCP Internal Medicine; Visit Provider Orthopaedic Surgery
DX: Z47.1 Aftercare following joint replacement surgery (principal); M17.11 Unilateral primary osteoarthritis, right knee; Z96.652 Presence of left artificial knee joint
CPT/HCPCS: 97014; 97110; 97116; 97161; G0283

== ENCOUNTER → 2022-12-02 11:30 | Outpatient (REF) | payer OTHER, SELFPAY | LOC: ANHLAB 11:30 | PROVIDERS: PCP Physician Assistant; Visit Provider Plastic Surgery | DX: L72.0 Epidermal cyst (principal) | CPT/HCPCS: 88305 ==

== ENCOUNTER 2022-12-25 09:19 | Outpatient (CLI) | payer OTHER, SELFPAY ==
--- NOTE | ~2022-12-25 | US_ITS ---
EXAMINATION:US venous doppler LE BI INDICATION:Leg swelling TECHNIQUE: Multiple grayscale, color flow and Doppler images of the right and left lower extremity de ep venous systems were obtained and reviewed. COMPARISON:Ultrasound dated 04/21/2022 FINDINGS: Study limited due to patient edema and patient body habitus. There is a Mann's cyst of the right popliteal fossa. The common femoral, superficial femoral and popliteal veins demonstrate vega l respiratory variation, augmentation and compressibility. Color flow is also seen within the cloud systems architect ior tibial, greater saphenous and profunda veins. The peroneal veins are not visualized. IMPRESSION: 1: No lower extremity deep venous thrombosis. Reviewed, dictated and finalized at location A.
== END 2022-12-25 09:20 | disposition home or self-care (01) ==
PROVIDERS: PCP Internal Medicine; Visit Provider Orthopaedic Surgery
DX: I73.9 Peripheral vascular disease, unspecified (principal); I48.91 Unspecified atrial fibrillation; R60.0 Localized edema
CPT/HCPCS: 93970

== ENCOUNTER 2023-02-03 14:01 | Outpatient (CLI) | payer OTHER, SELFPAY ==
--- NOTE | ~2023-02-03 | US_ITS ---
US art doppler w press LE BI INDICATION: Stricture of the arteries. TECHNIQUE: Segmental pressures and plethysmographic and Doppler waveforms of the brachial and lower e xtremity arteries were obtained. COMPARISON: None. FINDINGS: Right and left brachial artery pressures of 163 mm Hg and 162 mm Hg, respectively, are concordant (no rmal difference <= 30 mmHg). The right ankle-brachial index (YE) is 0.56 (normal >= 0.9-1.0). The right great toe-brachial index (TBI) is 0.01 (normal >= 0.60). The left YE is 0.75. The left TBI is 0.22. IMPRESSION: 1. Diminished bilateral ankle and toe brachial indices consistent with peripheral arterial disease, m ild at the ankle level and moderate-severe below the ankles. Reviewed, dictated and finalized at location B. SCREENER OPERATOR IMPRESSION: 1. Diminished bilateral ankle and toe brachial indices consistent with peripher al arterial disease, mild at the ankle level and moderate-severe below the ankl es.
== END 2023-02-03 14:02 | disposition home or self-care (01) ==
PROVIDERS: PCP Internal Medicine; Visit Provider Orthopaedic Surgery
DX: I48.91 Unspecified atrial fibrillation (principal); I73.9 Peripheral vascular disease, unspecified; I77.1 Stricture of artery
CPT/HCPCS: 93923

== ENCOUNTER 2023-03-20 07:41 | Outpatient (CLI) | payer OTHER, SELFPAY ==
--- NOTE | 2023-03-20 09:26 | ECG_ITS ---
Measurements Intervals [place] Rate: 62 P: 51 NE: 186 QRS: 12 QRSD: 92 T: 45 QT: 420 QTc: 429 Interpretive Statements SINUS RHYTHM BASELINE ARTIFACT- I, III, AVR, AVL, AVF NORMAL ECG COMPARED TO ECG 04/23/2022 10:00:25 NO SIGNIFICANT CHANGES Electronically Signed On 03-20-2023 9:52:11 EXCEL ANALYST by Terrell Parry D.O.
[2023-03-20 09:59] LABS: Basophils Percent Auto 0.4 % (0.2-1.2); Eosinophils Absolute Auto 0.3 K/mm3 (0-0.3); Eosinophils Percent Auto 3.5 % (0-4.4); Hematocrit 43.1 % (42.0-52.0); Hemoglobin 13.7 g/dL (14.0-18.0); Immature Granulocyte Absolute 0.09 K/mm3 (0.00-0.031); Immature Platelet Fraction Pct 5.7 % (0.9-11.2); Lymphocytes Absolute Auto 3.64 K/mm3 (0.9-3.2); Lymphocytes Percent Auto 40.4 % (18.3-44.2); Mean Corpuscular HGB Conc 31.8 g/dl (32-36); Mean Corpuscular Hemoglobin 29.3 pg (26-34); Mean Corpuscular Volume 92.3 fl (80-100); Monocytes Absolute Auto 0.7 K/mm3 (0.1-0.6); Neutrophils Absolute Auto 4.2 K/mm3 (1.3-6.7); Neutrophils Percent Auto 46.7 % (45.5-73.1); Platelet Count Result 151 k/mm3 (150-375); Red Blood Count 4.67 M/mm3 (4.6-6.20); Red Cell Distribution Width 14.2 % (11.5-14.5)
[2023-03-20 10:22] LABS: Appearance Urine Clear (Clear); Bilirubin Urine Negative (Negative); Blood Urine Negative (Negative); Color Urine Yellow (Yellow); Glucose Urine UA Negative (Negative); Ketones Urine Negative (Negative); Leukocyte Esterase Ur Negative LEU/UL (Negative); Nitrate Urine Negative (Negative); Protein Urine Negative (Negative); Specific Grav Ur 1.021 (1.001-1.035); Urobilinogen Urine 0.2 mg/dL (<2.0)
[2023-03-20 10:24] LABS: Add Urine Microscopic? NO
[2023-03-20 10:35] LABS: Hemoglobin A1C 6.5 % (<5.7)
[2023-03-20 11:03] LABS: INR 1.8; Partial Thromboplastin Time 31.2 SECONDS (22.3-36.8); Prothrombin Time 21.5 Seconds (11.1-14.7)
[2023-03-20 11:50] LABS: Albumin Level 3.8 g/dL (3.5-5.1)
[2023-03-20 11:58] LABS: Urine Cotinine NEGATIVE
== END 2023-03-20 07:42 | disposition home or self-care (01) ==
LOC: ANHSURGERY 07:45
PROVIDERS: PCP Internal Medicine; Visit Provider Orthopaedic Surgery
DX: Z01.818 Encounter for other preprocedural examination (principal); M17.11 Unilateral primary osteoarthritis, right knee
CPT/HCPCS: 36415; 80307; 81003; 82040; 83036; 85025; 85055; 85610; 85730; 86850; 86900; 86901; 87081; 93005

== ENCOUNTER 2023-03-24 03:49 | Day surgery (SDC) | payer OTHER, SELFPAY ==
[2023-03-20 07:53] VITALS: BP 148/67; PULSE 68; RESP 16; TEMP 36.5; O2SAT 97; BMI 34.5
--- NOTE | 2023-03-20 08:46 | PC.NURSE ---
Report to the Outpatient Waiting Room, entrance under the green pavilion located off [facility], at time _10:00AM on date ___03/24/23____. Planned Procedure Time: __12:00PM . Time changes happen often and if your time is changed the preop area will call you the afternoon before. - You and your visitor will be asked to self-screen and do not enter if you have any COVID symptoms. - A mask is optional within the hospital at this time. Patients may have clear liquids (water, carbonated beverages, clear teas, apple juice) until 3 hours prior to surgery with a maximum of 20 ounces. - No food from midnight until time of surgery. Take the following medications with a SIP of water the morning of surgery: __METOPROLOL DO NOT STOP ANY OF YOUR OTHER PRESCRIPTION MEDICATIONS PRIOR TO SURGERY ?EXCEPT THE FOLLOWING Medications to discontinue per physician _HOLD ASPIRIN AND VITAMINS/SUPPLEMENTS PER DR AWAD- CHIKA DANGELO TODAY. HOLD COUMADIN/LOVENOX BRIDGE PER DR VERA_- LAST DOSE 03/18/23 Please no make-up, nail emirati, hairspray, perfume, deodorant, or body powder the day of surgery. No jewelry (including any body piercings) or valuables the day of surgery, leave them at home. Please take a shower or bath the night before, or the morning of, surgery with an antibacterial soap. Wear comfortable, loose fitting clothing. HIBICLENS SHOWER PER DR AWAD - Jewelry must be removed prior to entering the operating room. Rings and piercings that are not removed may be cut off. - The hospital will not accept responsibility for valuables. - Please leave all valuables, including medications, at home the day of surgery. If you are going home after surgery, a licensed hazmat tanker driver must drive you home. - NO public transportation without another adult if you receive anesthesia. - We recommend that an adult stay with you for 24 hours following discharge. - We also recommend that you do not drive, make important decision, drink alcoholic beverages, or take any drugs that were not prescribed by your health care provider for at least 24 hours after your discharge time. Follow any additional instructions given to you from your surgeon. If you or anyone in your household have experienced Covid symptoms in the past week, please notify your surgeon or the nurse liaison at the phone number below for possible testing. Telephone instructions given to _PATIENT AND WIFE____and asked if any additional questions and then verbalized understanding. Patient advised to call surgeon office or pre surgery nurse liaison [phone] if any additional questions.
[2023-03-24] VITALS (12 sets, daily range): BP systolic 130–183; BP diastolic 63–89; PULSE 71–101; RESP 10–20; TEMP 36.3–36.7; O2SAT 94–99
--- NOTE | ~2023-03-24 | XR_ITS ---
XR_[id number]_CR DATE: 03/24/2023 15:19 INDICATION: Postoperative examination TECHNIQUE: Postoperative AP and crosstable lateral views COMPARISON: None FINDINGS: There are elisa along the anterior aspect of the knee. There is expected postoperative sales bcutaneous and intra-articular emphysema. Status post right knee arthroplasty. Normal alignment. No fracture or dislocation, periosteal reactio n or bone destruction. There is severe arterial calcification of the right lower extremity; diabetes is suspected. IMPRESSION: Right knee arthroplasty Reviewed, dictated and finalized at Location A. Reviewed, dictated and finalized at location L. H BRAZER IMPRESSION: Right knee arthroplasty
[2023-03-24] MEDS: LACTATED RINGERS 1,000 ML 30 ML IV CONT ×2 (10:54→15:10)
[2023-03-24] MEDS: TRANEXAMIC ACID 1,000MG/ISO100 1,000 MG/100 ML BAG 200 MG IVPB (10:55)
[2023-03-24] MEDS: ACETAMINOPHEN 500 MG TABLET 1000 MG PO (10:55)
[2023-03-24 11:01] LABS: Prothrombin Time 13.3 Seconds (11.1-14.7)
--- NOTE | 2023-03-24 12:00 | WPDHPUPDATE1 ---
History and Physical Update Update Date/Time: 03/24/23 12:00 History and Physical has been reviewed, including an updated exam of the patient. There are NO changes in the patient's condition. Risks, benefits, and alternatives have been discussed and questions answered. Patient agrees to proceed with procedure.
--- NOTE | 2023-03-24 12:26 | WPDANESEPPF ---
Anes - Initial Pre Proc Eval Procedure: Operation Date: 03/24/23 12:00 Proposed Procedures p Right Total Knee Arthroplasty - Paul Grace MD Date/Time: 03/24/23 12:26 Surgeon: Paul Grace MD Pre Op Diagnosis: right knee djd Patient Data Age: 77 Gender: M Height: 1.76 m Weight: 103.5 kg Last Vital Signs Temp 36.3 C L 03/24/23 10:15 Pulse 71 03/24/23 10:15 Resp 16 03/24/23 10:15 BP 160/77 H 03/24/23 10:15 Pulse Ox 99 03/24/23 10:15 O2 Del Method Room Air 03/24/23 10:15 Allergies Allergy/AdvReac Type Severity Reaction Status Date / Time heparin AdvReac Unknown Thrombocyto Verified 03/24/23 10:56 penia Home Medications Medication Instructions Recorded Confirmed Type aspirin 81 mg tablet,delayed 81 mg PO DAILY #90 tabs 09/20/19 03/24/23 Rx release (Adult Low Dose Aspirin) pantoprazole 40 mg tablet,delayed 40 mg PO QAM #90 tabs 09/20/19 03/24/23 Rx release losartan 25 mg tablet 12.5 mg PO BID 11/07/20 03/24/23 History atorvastatin 40 mg tablet 40 mg PO HS 03/17/21 03/24/23 History warfarin 5 mg tablet 5 mg PO DAILY 03/17/21 03/24/23 History finasteride 5 mg tablet 5 mg PO DAILY 04/10/21 03/24/23 History multivitamin (Daily Multi-Vitamin 1 tablet PO DAILY 04/10/21 03/24/23 History tablet) tamsulosin 0.4 mg capsule 0.4 mg PO DAILY 04/10/21 03/24/23 History coQ10 (ubiquinol) 200 mg capsule 200 mg PO BID 03/24/22 03/24/23 History vit A 300 mcg-C 200 mg-E 27 1 tablet PO DAILY 03/24/22 03/24/23 History mg-lutein 2 mg and minerals tablet (Vision Formula (with lutein)) glucosamine sulfate 500 mg tablet 1,500 mg PO DAILY 04/07/22 03/24/23 History (Glucosamine) latanoprost 0.005 % eye drops 1 drp LEFT EYE HS 04/08/22 03/24/23 History polyethylene glycol 3350 17 gram 17 g PO PRN PRN Constipation 04/21/22 03/24/23 History oral powder packet (Miralax) chlorhexidine gluconate 4 % 1 applic topical ONCE #237 mL 03/18/23 03/20/23 Rx topical liquid (Hibiclens) acetaminophen 500 mg tablet 1,000 mg PO Q6H PRN Pain 03/20/23 03/20/23 History (Acetaminophen Pain Relief) docusate sodium 100 mg capsule 100 mg PO DAILY 03/20/23 03/24/23 History (Colace) enoxaparin 100 mg/mL subcutaneous 90 mg subcut Q12H 03/20/23 03/24/23 History syringe (Lovenox) furosemide 40 mg tablet 40 mg PO QAM 03/20/23 03/24/23 History icosapent ethyl 1 gram capsule 2 g PO BID 03/20/23 03/24/23 History metoprolol tartrate 25 mg tablet 25 mg PO BID 03/20/23 03/24/23 History valacyclovir 1 gram tablet 2,000 mg PO BID PRN Outbreak 03/20/23 03/24/23 History (Valtrex) warfarin 3 mg tablet 3 mg PO 5XW 03/20/23 03/24/23 History Laboratory Tests 03/24/23 10:17 PT 13.3 D Seconds (11.1-14.7) INR 1.0 Patient hx anesthesia problems: none Family hx anesthesia problems: none Results Review: All pre-operative results and documents have been reviewed as part of the pre-operative evaluation. [facility] Past Medical History Medical History Arterial insufficiency Atherosclerotic heart disease BPH (benign prostatic hyperplasia) Chronic diastolic (congestive) heart failure Colon polyps Degenerative arthritis of knee, bilateral Degenerative joint disease of knee Effusion, left knee Essential (primary) hypertension Glaucoma Hx of colonic polyps Hx of myocardial infarction Hyperlipidemia Left knee DJD Obstructive sleep apnea Paroxysmal atrial fibrillation Peripheral vascular disease Retinal artery occlusion Right knee DJD Venous insufficiency of both lower extremities Vision abnormalities Blind right eye Surgical History Surgical History H/O aortic valve replacement with 2x coronary bypass, 2013 H/O cataract extraction History of aortic valve replacement with bioprosthetic valve History of appendectomy History of surgery Right lower leg reconstr
[2023-03-24] MEDS: ceFAZolin 2 GM/D5W 50 ML 2 GM/50 ML BAG IVPB ×2 (12:47→20:53)
--- NOTE | 2023-03-24 13:37 | WPDANESPNB ---
Anes - Peripheral Nerve Block Date/Time: 03/24/23 13:37 I have discussed with the patient/family/POA the placement of a peripheral nerve block for post-operative pain management, including associated risks, benefits, complications, and side effects. Alternative methods of post-operative analgesia were detailed. Questions were solicited and answers provided to the satisfaction of the patient/family/POA. Time-Out: A pre-procedural Time-Out was completed immediately before starting the procedure and confirmed: Patient Identification, Site, Procedure, Patient Position and the Availability of Requisite Equipment. Clinical Indications: Acute post-operative pain management requested by the operative surgeon. Nerve Block Insertion Note Anes-nerve block: adductor canal right Patient position: supine Skin prep: chlorhexidine Needle: 22 gauge, stimulating, insulated echogenic needle. Needle length: 80 mm Technique: ultrasound Technique comment: mid 1mg [id number] Injectate: bupivacaine 0.5% with epi 5 mcg/ml (30ml no epi) and dexamethasone (mg) (4) Observations: tolerated well Complications: none Procedure start time:: 1236 Procedure end time:: 1243
[2023-03-24] MEDS: GENTAMICIN BONE CEMENT REFOBACIN 1 EACH TOPICAL (13:57)
[2023-03-24] MEDS: TRANEXAMIC ACID 1,000 MG/10 ML AMPUL 1000 MG IV PUSH (14:21)
--- NOTE | 2023-03-24 15:14 | W.PM.PROC2 ---
Procedure Note - Detailed Date of Procedure 03/24/23 Pre-op Diagnosis right knee djd Post-op Diagnosis Same Procedure Performed RIGHT KNEE REPLACEMENT Surgeon Paul Grace MD Anesthesia General Description of Procedure THE RIGHT KNEE WAS PREPPED AND DRAPED IN THE STERILE FASHION. THERE WAS A 10 DEGREE FLEXION CONTRACTURE. A MIDLINE SKIN INCISION WAS MADE WHICH INCORPORATED A MEDIAL SCAR FROM A PREVIOUS SURGERY. FULL THICKNESS SKIN AND SUB CUTANEOUS FLAPS WERE DEVELOPED. A MEDIAL PARAPATELLAR ARTHROTOMY WAS MADE. THE PATELLA WAS EVERTED. THE TOURNIQUET WAS DEFLATED. THERE WAS SEVERE DJD. AN INTRAMEDULLARY VON WAS PLACED IN THE FEMUR. A DISTAL FEMORAL CUT WAS MADE IN 5 DEGREES OF VALGUS REMOVING APPROXIMATELY 10 MM OF BONE FROM THE DISTAL FEMUR. THE FEMUR WAS SIZED TO 75. A 75 FEMORAL CUTTING BLOCK WAS PLACED IN 3 DEGREES OF EXTERNAL ROTATION AND IN ALIGNMENT WITH ABDIRAHMAN'S LINE AND THE TRANSEPICONDYLAR AXIS. ANTERIOR POSTERIOR AND CHAMFER CUTS WERE MADE. THE CUTS WERE EXCELLENT. NEXT AN INTRAMEDULLARY CUTTING GUIDE WAS PLACED IN THE TIBIA. A TRANS TIBIAL CUT WAS MADE ALONG THE LONG AXIS OF THE TIBIA. APPROXIMATELY 10 MM OF BONE WAS REMOVED FROM THE HIGH SIDE OF THE TIBIA. THE TIBIA WAS THEN PLANED TO A SMOOTH SURFACE. POSTERIOR FEMORAL OSTEOPHYTES WERE REMOVED FROM THE FEMORAL CONDYLES. A 79 TIBIAL TRIAL WAS PLACED IN ALIGNMENT WITH THE 1/3 MEDIAL ASPECT OF THE TIBIAL TUBERCLE. THEN A 75 FEMORAL TRIAL COMPONENT WAS PLACED. BOTH HAD EXCELLENT FITS. EVENTUALLY A 10 MM CR POLYETHYLENE TRIAL COMPONENT WAS PLACED. THE KNEE WAS TAKEN THROUGH A RANGE OF MOTION. THE KNEE CAME OUT TO FULL EXTENSION. THERE WAS NO ABNORMAL TILT TO THE PATELLA. THERE WAS GOOD A/P AND VARUS/VALGUS STABILITY. THERE WAS NO EXCESSIVE ROLL BACK WITH FLEXION. THE TRIAL COMPONENTS WERE REMOVED. THE TOURNIQUET WAS INFLATED AGAIN. A 75 FEMORAL COMPONENT AND 79 TIBIAL COMPONENT WITH A 10 CR POLYETHYLENE COMPONENT WERE CEMENTED INTO PLACE. ONCE THE CEMENT WAS HARD THE TOURNIQUET WAS DEFLATED AGAIN AND BLEEDERS WERE CAUTERIZED. THE KNEE WAS TAKEN THROUGH A ROM AGAIN AND FOUND TO BE STABLE WITH NO PATELLA TILT NO EXCESSIVE ROLL BACK WITH FLEXION AND GOOD STABILITY WITH COMPLETE AND FULL EXTENSION. THE KNEE WAS IRRIGATED WITH STERILE BETADINE AND WATER FOR ABOUT 3 MINUTES. THE ARTHROTOMY WAS REPAIRED WITH NUMBER 1 VICRYL. THE SUB CUTANEOUS LAYER WITH 2-0 VICRYL AND THE SKIN WITH SHAHEEN. THERE WAS GOOD CAPILLARY REFILL TO THE INCISION SITE. THE WOUND WAS WASHED AND A STERILE DRESSING WAS APPLIED. THE PATIENT WAS EXTUBATED. Estimated Blood Loss -250.0 Pathology None sent Complications No immediate complications Condition Stable Disposition PACU
--- NOTE | 2023-03-24 17:05 | PC.NURSE ---
This patient, Steven Shaw, was admitted to Medical Room 345-01. Patient/family oriented to hospital policies and general routines including ID bracelet, bed and alarms, visiting hours, pain management, procedures, bathroom and other care routines, personal items, smoking policy, room service/diet, and visiting hours. Information on how to activate the Rapid Response Team has been discussed. Patient/Family are encouraged to report perceived risks to care and to ask questions if they do not understand what they are told or what they should do.
[2023-03-24] MEDS: SENNA/DOCUSATE SODIUM TABLET 2 TAB PO (18:11)
[2023-03-24] MEDS: oxyCODONE/ACETAMINOPHEN (*CRX) 5-325 MG TABLET 2 TABLET PO (18:11)
[2023-03-24] MEDS: LOSARTAN POTASSIUM 12.5 MG TABLET PO (18:11)
[2023-03-24] MEDS: METOPROLOL TARTRATE 25 MG TABLET PO (18:11)
[2023-03-24] MEDS: CELECOXIB 200 MG CAPSULE PO (18:12)
[2023-03-24] MEDS: TAMSULOSIN HCL 0.4 MG CAPSULE PO (20:53)
[2023-03-24] MEDS: LATANOPROST 0.005% OP SOLN 2.5 ML BTL 1 DROP LEFT EYE (20:53)
[2023-03-24] MEDS: ATORVASTATIN 40 MG TABLET PO (20:53)
[2023-03-25 02:06] VITALS: BP 108/48; PULSE 91; RESP 20; TEMP 36.2; O2SAT 98
[2023-03-25] MEDS: ceFAZolin 2 GM/D5W 50 ML 2 GM/50 ML BAG IVPB ×2 (04:51→12:14)
[2023-03-25 05:52] LABS: Basophils Percent Auto 0.1 % (0.2-1.2); Eosinophils Percent Auto 0.3 % (0-4.4); Hematocrit 35.6 % (42.0-52.0); Hemoglobin 11.1 g/dL (14.0-18.0); Immature Granulocyte Absolute 0.15 K/mm3 (0.00-0.031); Lymphocytes Absolute Auto 2.02 K/mm3 (0.9-3.2); Mean Corpuscular HGB Conc 31.2 g/dl (32-36); Mean Corpuscular Hemoglobin 29.4 pg (26-34); Mean Corpuscular Volume 94.2 fl (80-100); Mean Platelet Volume 11.4 fl (7.4-10.4); Monocytes Percent Auto 6.5 % (2.6-8.5); Neutrophils Absolute Auto 12.3 K/mm3 (1.3-6.7); Neutrophils Percent Auto 79.1 % (45.5-73.1); Platelet Count Result 134 k/mm3 (150-375); Red Blood Count 3.78 M/mm3 (4.6-6.20); Red Cell Distribution Width 14.2 % (11.5-14.5); White Blood Count 15.5 K/mm3 (4.5-10.0)
[2023-03-25 06:06] VITALS: BP 115/53; PULSE 83; RESP 18; TEMP 36.5; O2SAT 95
[2023-03-25 06:17] LABS: Anion Gap 4 mmol/L (8-16); Blood Urea Nitrogen 22 mg/dL (9-20); Calcium 8.3 mg/dL (8.4-10.2); Carbon Dioxide 30 mmol/L (22-30); Chloride 103 mmol/L (98-107); Estimated CRCL calculation 60 ml/min; Estimated Glomerular Filt Rate > 60; Glucose 170 mg/dL (65-110); Sodium 137 mmol/L (137-145)
[2023-03-25 08:42] VITALS: PULSE 93
[2023-03-25] MEDS: FUROSEMIDE 40 MG TABLET PO (08:42)
[2023-03-25] MEDS: PANTOPRAZOLE 40 MG TABLET PO (08:42)
[2023-03-25] MEDS: LOSARTAN POTASSIUM 12.5 MG TABLET PO (08:42)
[2023-03-25] MEDS: polyethylene glycoL 3350 17 GM POWD.PACK PO (08:42)
[2023-03-25] MEDS: METOPROLOL TARTRATE 25 MG TABLET PO (08:42)
[2023-03-25] MEDS: ASPIRIN 81 MG ENTERIC TABLET PO (08:42)
[2023-03-25] MEDS: SENNA/DOCUSATE SODIUM TABLET 2 TAB PO (08:42)
[2023-03-25] MEDS: FINASTERIDE 5 MG TABLET PO (08:42)
[2023-03-25] MEDS: OPTI-GEN TAB 1 TABLET PO (08:42)
[2023-03-25] MEDS: CELECOXIB 200 MG CAPSULE PO (08:42)
[2023-03-25 08:45] VITALS: BP 113/69
--- NOTE | 2023-03-25 10:20 | WPDANESPN ---
Anes - Prog Note Post-Op Date/Time: 03/25/23 10:20 Cardiovascular status: normal Respiratory status: normal Airway patency: baseline Mental status: baseline Post-Op hydration status: normal Vital Signs: Last Vital Signs Temp 36.5 C 03/25/23 06:06 Pulse 93 03/25/23 08:42 Resp 18 03/25/23 06:06 BP 113/69 03/25/23 08:45 Pulse Ox 95 03/25/23 06:06 O2 Del Method Room Air 03/24/23 16:15 O2 Flow Rate 03/24/23 15:15 Pain Score (VAS): 2 I/O: Intake & Output 03/24/23 03/25/23 03/25/23 23:59 07:59 15:59 Intake Total 890 50 360 Balance 890 50 360 Laboratory Tests 03/25/23 05:31 03/25/23 05:31 03/24/23 03/25/23 10:17 05:31 WBC 15.5 H RBC 3.78 L Hgb 11.1 L Hct 35.6 L MCV 94.2 MCH 29.4 MCHC 31.2 L RDW 14.2 Plt Count 134 L MPV 11.4 H Immature Gran % (Auto) 1.0 H Neut % (Auto) 79.1 H Lymph % (Auto) 13.0 L [place] % (Auto) 6.5 Eos % (Auto) 0.3 Baso % (Auto) 0.1 L Lymph # (Auto) 2.02 [place] # (Auto) 1.0 H Eos # (Auto) 0.0 Baso # (Auto) 0.0 Abs Immat Gran (auto) 0.15 H Absolute Neuts (auto) 12.3 H Absolute Nucleated RBC 0.0 Nucleated RBC % 0.0 PT 13.3 D INR 1.0 Sodium 137 Potassium 4.0 Chloride 103 Carbon Dioxide 30 Anion Gap 4 L BUN 22 H Creatinine 1.10 Estim Creat Clear Calc 60 Estimated GFR > 60 Glucose 170 H Calcium 8.3 L Post-procedural complaints: none Patient Feedback: Patient satisfied with anesthetic care.
--- NOTE | 2023-03-25 11:08 | PM.PNORT ---
Progress Note: A&P Assessment and Plan (1) Degenerative arthritis of knee, bilateral: Code(s): M17.0 - Bilateral primary osteoarthritis of knee Status: Acute Assessment and Plan: POD 1 DOING WELL. OK TO DC HOME F/U IN 3 WEEKS Subjective Subjective Date/Time Seen: 03/25/23 11:08 Interval history: POD 1 DOING WELL. GOOD PROGRESS WITH PT Exam Extrem: Other: VSS AFEBRILE DRESSING DRY NV INTACT [employer] SIGN CALF SOFT NON TENDER, DRESSING INTACT WORKING WELL WITH PRAVENA Objective Data Vital Signs Vital Signs: Vital Signs - 24 hr 03/24/23 15:10 03/24/23 15:15 03/24/23 15:30 Temperature 36.4 C Pulse Rate 82 80 78 Respiratory Rate 10 L 19 15 Blood Pressure 153/63 H 146/74 H 161/74 H Pulse Oximetry 98 99 98 Oxygen Delivery Simple Face Mask Simple Face Mask Room Air Oxygen Flow Rate 10 10 03/24/23 15:45 03/24/23 16:00 03/24/23 16:15 Temperature Pulse Rate 89 89 87 Respiratory Rate 20 18 19 Blood Pressure 138/66 130/67 156/78 H Pulse Oximetry 99 99 99 Oxygen Delivery Room Air Room Air Room Air Oxygen Flow Rate 03/24/23 16:40 03/24/23 17:10 03/24/23 18:11 Temperature 36.7 C 36.5 C Pulse Rate 89 90 94 Respiratory Rate 16 16 Blood Pressure 175/81 H 183/89 H Pulse Oximetry 96 96 Oxygen Delivery Oxygen Flow Rate 03/24/23 18:06 03/24/23 21:13 03/25/23 02:06 Temperature 36.7 C 36.5 C 36.2 C L Pulse Rate 88 101 H 91 Respiratory Rate 16 18 20 Blood Pressure 170/80 H 143/74 H 108/48 L Pulse Oximetry 95 94 98 Oxygen Delivery Oxygen Flow Rate 03/25/23 06:06 03/25/23 08:42 03/25/23 08:45 Temperature 36.5 C Pulse Rate 83 93 Respiratory Rate 18 Blood Pressure 115/53 L 113/69 Pulse Oximetry 95 Oxygen Delivery Oxygen Flow Rate Intake/Output Intake/Output: Intake & Output 03/22/23 03/23/23 03/24/23 03/25/23 23:59 23:59 23:59 23:59 Intake Total 940 410 Balance 940 410 Meds/Results Medications: Active Medications Generic Name Dose Route Start Last Admin Trade Name Freq PRN Reason Stop Dose Admin Acetaminophen 1,000 mg 03/24/23 16:21 Acetaminophen 500 Mg Tablet PO Q6H PRN Pain Aspirin 81 mg 03/25/23 09:00 03/25/23 08:42 Aspirin 81 Mg Enteric Tablet PO 81 mg DAILY RUDY Administration Atorvastatin Calcium 40 mg 03/24/23 21:00 03/24/23 20:53 Atorvastatin 40 Mg Tablet PO 40 mg HS RUDY Administration Celecoxib 200 mg 03/24/23 17:00 03/25/23 08:42 Celecoxib 200 Mg Capsule PO 200 mg BIDWM RUDY Administration Diazepam 5 mg 03/24/23 16:21 Diazepam (*Crx) 5 Mg Tablet PO Q8H PRN Spasms Diphenhydramine HCl 25 mg 03/24/23 16:21 Diphenhydramine Hcl Inj 50 Mg/Ml Vial IV PUSH Q6H PRN Itching Finasteride 5 mg 03/25/23 09:00 03/25/23 08:42 Finasteride 5 Mg Tablet PO 5 mg DAILY RUDY Administration Furosemide 40 mg 03/25/23 09:00 03/25/23 08:42 Furosemide 40 Mg Tablet PO 40 mg QAM RUDY Administration Cefazolin Sodium 2 gm in 50 mls @ 100 mls/hr 03/24/23 21:00 03/25/23 05:21 Ancef 2 Gm/D5w 50 Ml IVPB 03/25/23 13:29 Infused Q8H RUDY Infusion Latanoprost 1 drop 03/24/23 21:00 03/24/23 20:53 Latanoprost 0.005% Op Soln 2.5 Ml Btl LEFT EYE 1 drop HS RUDY Administration Losartan Potassium 12.5 mg 03/24/23 17:00 03/25/23 08:42 Losartan Potassium 12.5 Mg Tablet PO 12.5 mg BID RUDY Administration Metoprolol Tartrate 25 mg 03/24/23 17:00 03/25/23 08:42 Metoprolol Tartrate 25 Mg Tablet PO 25 mg BID RUDY Administration Multivitamins/Minerals 1 tablet 03/25/23 09:00 03/25/23 08:42 Opti-Gen Tab PO 1 tablet DAILY RUDY Administration Naloxone HCl 0.1 mg 03/24/23 16:21 Naloxone Hcl 0.4 Mg/Ml Vial IV PUSH Q2M PRN Opiate Reversal Ondansetron HCl 4 mg 03/24/23 16:21 Ondansetron Inj 4 Mg/2 Ml Vial IV PUSH Q4H PRN Nausea And Vomiting Oxycodone/Acetaminophe
--- NOTE | 2023-03-25 11:11 | PM.DS ---
DS: Admitting Diagnosis Discharge Date 03/25/23 Admitting Diagnosis RIGHT KNEE DJD DS: Discharge Diagnosis Discharge Diagnosis (1) Right knee DJD: Qualifiers: Osteoarthritis type: primary Qualified Code(s): M17.11 - Unilateral primary osteoarthritis, right knee Code(s): M17.11 - Unilateral primary osteoarthritis, right knee Status: Acute (2) Degenerative arthritis of knee, bilateral: Code(s): M17.0 - Bilateral primary osteoarthritis of knee Status: Acute DS: Summary Hospital Course Reason for hospitalization: RIGHT TKA Hospital Course: PATIENT WAS ADMITTED S/P TOTAL KNEE ARTHROPLASTY FOR POSTOPERATIVE MEDICAL MANAGEMENT, PAIN CONTROL AND MOBILIZATION WITH PHYSICAL AND OCCUPATIONAL THERAPY. THE PATIENT PROGRESSED WELL WITH PT/OT. LABS AND VITALS REMAINED STABLE AND PAIN WELL CONTROLLED. THE PATIENT HAS BEEN CLEARED TO BE DISCHARGED HOME. FOLLOW UP APPOINTMENT SCHEDULED. DISCHARGE INSTRUCTIONS DISCUSSED AT LENGTH WITH THE PATIENT. MEDICATIONS REVIEWED. Status at Discharge Cognitive/behavioral status at discharge: STABLE Time Spent with Patient Time attestation: Total time spent providing and/or coordinating discharge services: DS: Data Data Completed and Pending Labs on day of discharge: Labs from last 24 hours 03/25/23 05:31 WBC 15.5 H RBC 3.78 L Hgb 11.1 L Hct 35.6 L MCV 94.2 MCH 29.4 MCHC 31.2 L RDW 14.2 Plt Count 134 L MPV 11.4 H Immature Gran % (Auto) 1.0 H Neut % (Auto) 79.1 H Lymph % (Auto) 13.0 L [place] % (Auto) 6.5 Eos % (Auto) 0.3 Baso % (Auto) 0.1 L Lymph # (Auto) 2.02 [place] # (Auto) 1.0 H Eos # (Auto) 0.0 Baso # (Auto) 0.0 Abs Immat Gran (auto) 0.15 H Absolute Neuts (auto) 12.3 H Absolute Nucleated RBC 0.0 Nucleated RBC % 0.0 Sodium 137 Potassium 4.0 Chloride 103 Carbon Dioxide 30 Anion Gap 4 L BUN 22 H Creatinine 1.10 Estim Creat Clear Calc 60 Estimated GFR > 60 Glucose 170 H Calcium 8.3 L Procedures/Treatments: R TKA Discharge Plan Discharge Patient Disposition: Home, Self-Care Discharge Instructions: WAQAS GRACE M.D. [facility] [address] [facility] [address] [place] [address] POST OPERATIVE DISCHARGE INSTRUCTIONS FOLLOWING TOTAL KNEE REPLACEMENT SURGERY ? Your dressing will be changed prior to your discharge. You will be sent home with one additional dressing to be changed on post op day 7 by the home health RN. Your elisa will be removed on the 14th day after surgery and steri-strips will be placed. Please practice good hand hygiene and do not touch your incision in order to prevent infection. ? You may shower with your dressing but do not submerge in a bath tub. ? Do not drive or operate machinery until you are released by Dr. Grace. ? Do not walk without a walker for any reason until you are released by Dr. Grace. ? Continue to use your ice machine. Please use a towel or pillow case to protect your skin before applying your ice machine. ? Do NOT place a pillow under your knee. You may use a pillow from the calf down if needed. This will prevent a flexion contracture postoperatively. ? You may begin use of your CPM machine at home if you have been given one pre-operatively. DO NOT USE WHILE YOU ARE SLEEPING. ? Your first post op appointment was sent to you via mail preoperatively. If you have any questions or are unable to make your appointment, please contact our office for scheduling questions. ? Your medications have been sent to your pharmacy. You have been sent home with pain medication. We have also sent you with a stool softener as narcotics can cause constipation. Please keep this in mind during your postoperative recovery. If you are not experiencing regular bowel movements, please contact our office for further instruction. ? Please contact our office with any questions/concerns regarding your knee at [phone]
[2023-03-25] MEDS: oxyCODONE/ACETAMINOPHEN (*CRX) 5-325 MG TABLET 2 TABLET PO (12:13)
== END 2023-03-25 14:55 | disposition home health service (06) ==
LOC: ANHSURGERY 09:38 → ANH3MED 16:23
PROVIDERS: PCP Internal Medicine; Visit Provider Orthopaedic Surgery
PROC: (CPT 27447; principal; 2023-03-24 12:00)
DX: M17.11 Unilateral primary osteoarthritis, right knee (principal); G89.18 Other acute postprocedural pain; I11.0 Hypertensive heart disease with heart failure; I50.32 Chronic diastolic (congestive) heart failure; I25.10 Atherosclerotic heart disease of native coronary artery without angina pectoris; I25.2 Old myocardial infarction; E78.5 Hyperlipidemia, unspecified; I48.0 Paroxysmal atrial fibrillation; I73.9 Peripheral vascular disease, unspecified; N40.0 Benign prostatic hyperplasia without lower urinary tract symptoms; H40.9 Unspecified glaucoma; Z95.1 Presence of aortocoronary bypass graft; Z95.2 Presence of prosthetic heart valve; E66.9 Obesity, unspecified; Z68.33 Body mass index [BMI] 33.0-33.9, adult; Z79.82 Long term (current) use of aspirin; Z79.01 Long term (current) use of anticoagulants
CPT/HCPCS: 27447; 64447; 36415; 73560; 80048; 80307; 81003; 82040; 83036; 85025; 85055; 85610; 85730; 86850; 86900; 86901; 87081; 93005; 97110; 97116; 97161; 97165; 97530; 97535; A9270; C1713; C1776; J0171; J0690; J1100; J1885; J2250; J2270; J2405; J2704; J2795; J3010; J7120

== ENCOUNTER 2023-03-30 12:42 | Emergency (ER) | payer OTHER, SELFPAY ==
[2023-03-30] VITALS (10 sets, daily range): BP systolic 98–154; BP diastolic 49–103; PULSE 87–97; RESP 12–97; TEMP 36.4; O2SAT 95–100
--- NOTE | ~2023-03-30 | US_ITS ---
US venous doppler LE RT DATE: 03/30/2023 14:31 INDICATION: Right leg swelling. Right knee replacement 6 days ago. TECHNIQUE: Real-time and color flow imaging and Doppler analysis of the veins of the right lower extr emity COMPARISON: 12/25/2022 bilateral lower extremity venous duplex examination of the lower extremities FINDINGS: The greater saphenous vein is patent. There is spontaneous and phasic flow and normal augme ntation and color flow signal and normal compression of the deep veins of the right lower extremity. IMPRESSION: No evidence of deep venous thrombosis of right lower extremity Reviewed, dictated and finalized at [facility]. Reviewed, dictated and finalized at [facility]. 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
--- NOTE | 2023-03-30 13:10 | PC.NURSE ---
When assisting pt onto stretcher, RN noted wound vac, intact & running properly
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
[2023-03-30 15:19] LABS: Basophils Percent Auto 0.3 % (0.2-1.2); Eosinophils Absolute Auto 0.2 K/mm3 (0-0.3); Hematocrit 29.6 % (42.0-52.0); Hemoglobin 9.2 g/dL (14.0-18.0); Immature Granulocyte Absolute 0.13 K/mm3 (0.00-0.031); Immature Granulocyte Percent A 1.7 % (0-0.5); Lymphocytes Absolute Auto 1.76 K/mm3 (0.9-3.2); Lymphocytes Percent Auto 23.2 % (18.3-44.2); Mean Corpuscular HGB Conc 31.1 g/dl (32-36); Mean Corpuscular Volume 93.4 fl (80-100); Mean Platelet Volume 11.1 fl (7.4-10.4); Monocytes Absolute Auto 0.9 K/mm3 (0.1-0.6); Monocytes Percent Auto 11.2 % (2.6-8.5); Neutrophils Absolute Auto 4.7 K/mm3 (1.3-6.7); Neutrophils Percent Auto 61.6 % (45.5-73.1); Platelet Count Result 162 k/mm3 (150-375); Red Blood Count 3.17 M/mm3 (4.6-6.20); Red Cell Distribution Width 14.7 % (11.5-14.5); White Blood Count 7.6 K/mm3 (4.5-10.0)
[2023-03-30] MEDS: HYDROmorphone HCL INJ (*CRX) 1 MG/ML SYR 0.5 MG IV PUSH (15:20)
[2023-03-30 15:29] LABS: Anion Gap 2 mmol/L (8-16); Blood Urea Nitrogen 15 mg/dL (9-20); Calcium 8.2 mg/dL (8.4-10.2); Carbon Dioxide 35 mmol/L (22-30); Chloride 99 mmol/L (98-107); Creatine Kinase 104 U/L (55-170); Estimated CRCL calculation 72 ml/min; Estimated Glomerular Filt Rate > 60; Glucose 125 mg/dL (65-110); Lactic Acid Reflex 0.9 mmol/L (0.7-2.0); Potassium 4.1 mmol/L (3.4-5.0); Sodium 136 mmol/L (137-145)
[2023-03-30 15:31] LABS: INR 1.9; Prothrombin Time 22.9 Seconds (11.1-14.7)
[2023-03-30 15:32] LABS: Partial Thromboplastin Time 56.9 SECONDS (22.3-36.8)
== END 2023-03-30 18:45 | disposition home or self-care (01) ==
PROVIDERS: Emergency Provider Emergency Medicine; PCP Internal Medicine
DX: M79.89 Other specified soft tissue disorders (principal); I11.0 Hypertensive heart disease with heart failure; I50.32 Chronic diastolic (congestive) heart failure; E78.5 Hyperlipidemia, unspecified; I48.0 Paroxysmal atrial fibrillation
CPT/HCPCS: 36415; 80048; 82550; 83605; 85025; 85610; 85730; 93971; 96374; 99284; J1170

== ENCOUNTER 2023-04-09 15:32 | Outpatient (CLI) | payer OTHER, SELFPAY ==
[2023-04-09 17:14] LABS: INR 2.7; Prothrombin Time 30.7 Seconds (11.1-14.7)
== END 2023-04-09 15:33 | disposition home or self-care (01) ==
LOC: ANHLAB 15:34
PROVIDERS: PCP Internal Medicine; Visit Provider Internal Medicine Cardiovascular Disease
DX: Z79.01 Long term (current) use of anticoagulants (principal)
CPT/HCPCS: 36415; 85610

== ENCOUNTER 2023-09-07 00:10 | Day surgery (SDC) | payer OTHER, SELFPAY ==
[2023-08-26 13:31] VITALS: BMI 32.1
--- NOTE | 2023-08-26 14:10 | PC.NURSE ---
Spoke with [facility] regarding medication WARFARIN. Pt. verbalizes understanding that the last dose of WARFARIN is to be taken on 09/02/2023 and the Endoscopist will instruct them when to restart after the procedure.
[2023-09-07 08:25] VITALS: BP 114/97; PULSE 77; RESP 18; TEMP 36.3; O2SAT 97; BMI 31.8
[2023-09-07] MEDS: LACTATED RINGERS 1,000 ML 150 ML IV CONT (08:39)
[2023-09-07] MEDS: GENTAMICIN 80MG/SOD CHL 50 ML 80 MG/50 ML BAG 100 MG IVPB (08:40)
[2023-09-07] MEDS: AMPICILLIN 2 GM/NS 100 ML 2 GM/100 ML BAG IVPB (09:06)
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
[2023-09-07 09:50] VITALS: BP 103/44; PULSE 68; RESP 17; O2SAT 99
[2023-09-07 10:00] VITALS: BP 111/93; PULSE 69; RESP 18; O2SAT 97
[2023-09-07 10:10] VITALS: BP 113/91; PULSE 67; RESP 24; O2SAT 98
== END 2023-09-07 10:20 | disposition home or self-care (01) ==
PROVIDERS: PCP Internal Medicine; Visit Provider Internal Medicine Gastroenterology
PROC: 0DJD8ZZ Inspection of Lower Intestinal Tract, Via Natural or Artificial Opening Endoscopic (ICD-10-PCS; CPT 45378; principal; 2023-09-07 10:00)
DX: Z12.11 Encounter for screening for malignant neoplasm of colon (principal); K64.8 Other hemorrhoids; Z86.010 Personal history of colon polyps; I25.10 Atherosclerotic heart disease of native coronary artery without angina pectoris; I48.0 Paroxysmal atrial fibrillation; E78.5 Hyperlipidemia, unspecified; N40.0 Benign prostatic hyperplasia without lower urinary tract symptoms; I11.0 Hypertensive heart disease with heart failure; I50.32 Chronic diastolic (congestive) heart failure; I73.9 Peripheral vascular disease, unspecified; H40.9 Unspecified glaucoma; G47.33 Obstructive sleep apnea (adult) (pediatric); Z95.1 Presence of aortocoronary bypass graft; Z95.2 Presence of prosthetic heart valve; Z79.01 Long term (current) use of anticoagulants; Z79.82 Long term (current) use of aspirin; E66.9 Obesity, unspecified; Z68.31 Body mass index [BMI] 31.0-31.9, adult
CPT/HCPCS: G0105; J0290; J1580; J2704; J7120

== ENCOUNTER 2024-12-15 08:36 | Outpatient (CLI) | payer OTHER, SELFPAY ==
--- NOTE | ~2024-12-15 | US_ITS ---
EXAMINATION: US arterial ankle brachial ind DATE: 12/15/2024 10:03 INDICATION: Peripheral vascular disease. TECHNIQUE: Segmental pressures and plethysmographic and Doppler waveforms of the brachial and lower extremity arteries were obtained. COMPARISON: None. FINDINGS: Right and left brachial artery pressures of 131 mm Hg and 140 mm Hg, respectively, are concordant (normal difference <= 30 mmHg). The right ankle-brachial index (YE) is 0.55 (normal >= 0.9-1.0) impression the right posterior tibial artery. The right thrombosed. The right great toe- brachial index (TBI) was unable to be obtained due to no dopplerable pulse at the right great toe (normal >= 0.65). There is a parvus and tardus waveform in the right posterior cerebral artery with dampened and broadened systolic peaks approaching aphasic flow. The left YE is 0.71. The left TBI is 0.49. Arterial Doppler waveforms demonstrate normal brisk systolic upstrokes at the left posterior tibial artery. Parvus and tardus waveforms are seen in the left dorsalis pedis artery. IMPRESSION: 1. Arterial occlusive disease in the bilateral lower limbs more severe on the right where there is moderately decreased right YE and thrombosed right dorsalis pedis artery. 2. Mild to to moderately decreased left YE and mildly decreased left TBI. Reviewed, dictated and finalized at location A. IMPRESSION: 1. Arterial occlusive disease in the bilateral lower limbs more severe on the r ight where there is moderately decreased right YE and thrombosed right dorsali s pedis artery. 2. Mild to to moderately decreased left YE and mildly decreased left TBI.
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
--- OUTSIDE RECORDS SUMMARY | 2024-12-15 08:47 | XMS_ITS | Clinical Summary ---
Author Organization [facility] Address [address] [place] [address] Care Team Providers Care Photographic Equipment Inspector Name Role Phone Unavailable Primary Care Provider Unavailabl e Social History Tobacco Use Types Packs/Day Years Used Date Smoking Tobacco: Never Assessed Sex and Gender Information Value Date Recorded Sex Assigned at Not on file Legal Sex Male 4:07 PM CDT Gender Identity Not on file Sexual Orientation Not on file Plan of Treatment Health Maintenance Due Date Last Done Comments Hepatitis C 1963 DTaP, Tdap and Td Vaccines ( 1 - Tdap) 1965 Pneumococcal Vaccine: 50+ Ye ars (1 of 1 - PCV) 1996 Zoster Vaccines (1 of 2) 1996 RSV Immunization or 60+ Years (1 - 1-dose 75+ series) 2021 COVID-19 Vaccine ( - 2023-2 5 season) 2024 Meningococcal B Vaccine Aged Out No l onger eligible based on patient's age to complete this topic Meningococcal Vaccine Aged Out No nola hunter eligible based on patient's age to complete this topic RSV Immunizations Under 20 Months Aged Out No longer eligible based on patient's age to complete this topic
== END 2024-12-15 08:37 | disposition home or self-care (01) ==
PROVIDERS: PCP Internal Medicine; Visit Provider Internal Medicine
DX: I70.203 Unspecified atherosclerosis of native arteries of extremities, bilateral legs (principal); I74.3 Embolism and thrombosis of arteries of the lower extremities; R94.39 Abnormal result of other cardiovascular function study
CPT/HCPCS: 93922

== ENCOUNTER 2025-02-13 10:13 | Outpatient (CLI) | payer OTHER, SELFPAY ==
--- NOTE | ~2025-02-13 | XR_ITS ---
EXAMINATION: XR knee LT 3V, 02/13/2025 10:23 CRYSTALIZER TENDER HISTORY: LUMP ON ANTERIOR KNEE AFTER KNEELING YESTERDAY COMPARISON: No comparisons available. Findings: No acute fracture or malalignment. Arthroplasty intact Soft tissues unremarkable. Impression: No acute fracture or malalignment. Reviewed, dictated and finalized at location P. TALIZER TENDER Impression: No acute fracture or malalignment.
--- OUTSIDE RECORDS SUMMARY | 2025-02-13 11:29 | XMS_ITS | Encounter Summary ---
Author Organization [facility] Address [address] [place] [address] Care Team Providers Care Sheet Cutter Name Role Phone DillonGil Primary Care Provider [phone] Jeremy Elkins MD Unavailable [phone] Greg Omer MD Unavailable [phone] Reason for Referral * Diagnostic Imaging (Routine) - Authorized Specialty Diagnoses / Procedures Referred By Keenan bains Referred To Contact Diagnoses Aftercare following surgery of the circulatory system Procedures US YE Jeremy Elkins MD [address] [place] [address] [address] Phone: tel: fax: [address] [phone] Referral ID Status Reason Start Date Expiration Date V isits Requested Visits Authorized [id number] Authorized 02/13/2025 03/15/2026 1 1 HROOM FOOD SERVICE SUPERVISOR * Diagnostic Imaging (Routine) - Authorized Specialty Diagnoses / Procedures Referred By Keenan bains Referred To Contact Diagnoses Aftercare following surgery of the circulatory system Procedures US Arterial Duplex Lower Extremity Right Limited Jeremy Elkins MD [address] [address] [address] Phone: tel: fax: [address] [phone] Referral ID Status Reason Start Date Expiration Date V isits Requested Visits Authorized [id number] Authorized 02/13/2025 03/15/2026 1 1 HROOM FOOD SERVICE SUPERVISOR Encounter Details Date Type Department Care Team (Late st Contact Info) Description 02/13/2025 Orders Only [facility] Vascular and Vein Surgery [address] [facility] [address] [place] [address] Jeremy Elkins MD [address] [place] [address] [address] [place] [address] Aftercare following surgery of the circulatory system (Primary Dx) Social History Tobacco Use Types Packs/Day Years Used Date Smoking Tobacco: Never Smokeless Tobacco: Never Alcohol Use Standard Drinks/Week Comments Never 0 (1 standard drink = 0.6 oz pur e alcohol) Social Connection and Isolation Panel Answer Date Recorded In a typical week, how many times do you talk on the phone with family, friends, or neighbors? More than three times a week 02/03/2025 How often do you get togethe r with friends or relatives? More than three times a week 02/03/2025 How often do you attend chur ch or rastafarian services? Never 02/03/2025 Do you belong to any clubs o r organizations such as taoist groups, unions, fraternal or athletic groups, or school groups? No 02/03/2025 How often do you attend meet ings of the clubs or organizations you belong to? Never 02/03/2025 Are you , , di vorced, , never , or living with a partner? 02/03/2025 AUDIT-C Answer Date Recorded Q1: How often do you have a drink containing alcohol? Never 02/02/2025 Q2: How many drinks containi ng alcohol do you have on a typical day when you are drinking? Patient does not drink Q3: How often do you have si x or more drinks on one occasion? Never 02/02/2025 Overall Financial Resource Strain (CARDIA) Answe r Date Recorded How hard is it for you to pa y for the very basics like food, housing, medical care, and heating? Not hard at all 02/03/2025 Hunger Vital Sign Answer Date Recorded Within the past 12 months, y ou worried that your food would run out before you got the money to buy more. Never true 02/04/20 25 Within the past 12 months, t he food you bought just didn't last and you didn't have money to get more. Never true 02/03/2025 PRAPARE - Transportation Answer Date Re corded In the past 12 months, has l ack of transportation kept you from medical appointments or from getting medications? No 01/15 In the past 12 months, has l ack of transportation kept you from meetings, work, or from getting things needed for daily living? No 02/03/2025 Housing Stability Vital Sign Answer Gabe e Recorded In the last 12 months, was t here a time when you were not able to pay the mortgage or rent on time? No 02/03/2025 In the past 12 months, how m any times have you moved where you were living? 0 02/03/2025 At any time in the past 12 m [facility], were you homeless or living in a assisted (including now)? No 02/03/2025 [facility] Utilities Answer Date Recorded In the past 12 months has th e electric, gas, oil, or water company threatened to shut off services in your home? No 02/03/2025 Personal Safety Answer Date Recorded Have you ever been in or are you currently in a harmful physical or emotional relationship or is someone making you feel afraid or unsafe? Denies 02/02/2025 Sex and Gender Information Value Date Recorded Sex Assigned at Not on file Legal Sex Male 7:16 PM LUNCHROOM FOOD SERVICE SUPERVISOR Gender Identity Male 05/17/2020 9:09 PM LUNCHROOM FOOD SERVICE SUPERVISOR Sexual Orientation Straight 05/17/2020 9: 09 PM LUNCHROOM FOOD SERVICE SUPERVISOR documented as of this encounter Plan of Treatment Scheduled Orders Name Type Priority Associated Diagnoses Orde r Schedule US Arterial Duplex Lower Extremity Right Limited Imaging Schedule Routine, Read Routine (OP Routine) Aftercare following surgery of the circulatory system Expected: 02/13/2025, Expires: 02/13/2026 US YE Imaging Schedule Routine , Read Routine (OP Routine) Aftercare following surgery of the circulatory system Expected: 02/13/2025, Expires: 02/13/2026 documented as of this encounter Visit Diagnoses Diagnosis Aftercare following surgery of the circulatory system- Primary Aftercare following surgery of the circulatory system, NEC documented in this encounter Additional Health Concerns Infection Onset Date Last Indicated Resolved Time Ring Surveillance: C. 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 Patient may require a screening swab. No additional isolation precautions are necessary with this flag/n.moll 02/06/2025 02/06/2025 documented as of this encounter Care Teams Sheet Cutter Relationship Specialty Start Date End Date Gil Carranza DO PCP - General Internal Medicine 01/19/24 Jeremy Elkins MD [address] [facility] [address] [place] [address] Surgeon Vascular Surgery 12/28/24 Greg Omer MD [address] [place] [address] Consulting Physician Cardiology 01/06/25 documented as of this encounter
--- OUTSIDE RECORDS SUMMARY | 2025-02-13 11:29 | XMS_ITS | Clinical Summary ---
Author Organization [facility] Address [address] [place] [address] Care Team Providers Care Detective Automobile Section Name Role Phone Unavailable Primary Care Provider [...] 75+ series) 2021 COVID-19 Vaccine ( - 2024-2 6 season) 2024 Influenza Adult (#1) 2024 Hepatitis A Vaccines Aged Out No long er eligible based on patient's age to complete this topic Meningococcal B Vaccine Aged Out No l onger eligible based on patient's age to complete this topic Meningococcal Vaccine Aged Out No nola hunter eligible based on patient's age to complete this topic RSV Immunizations Under 20 Months Aged Out No longer eligible based on patient's age to complete this topic
--- OUTSIDE RECORDS SUMMARY | 2025-02-13 11:29 | XMS_ITS | Encounter Summary ---
Author Organization [facility] Healthcare Address [address] [place] [address] Care Team Providers Care Millinery Copyist Name Role Phone Gil Carranza DO Primary Care Provider [phone] Jeremy Elkins MD Unavailable [phone] Greg Omer MD Unavailable [phone] Encounter Details Date Type Department Care Team (Late st Contact Info) Description 02/13/2025 Telephone [facility] Vascular and Vein Surgery [facility] [address] [place] [address] Monika Reyes RN Social History Tobacco Use Types Packs/Day Years [...] often do you attend chur ch or yazdanism services? Never 02/03/2025 Do you belong to any clubs o r organizations such as islam groups, unions, fraternal or athletic groups, or [...] any time in the past 12 m [facility], were you homeless or living in a long term (including now)? 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 The office has no SDS available so RN is wanting to know the patient's preference. Patient's returned phone call, patient has been scheduled for his f/u appointments UTER HARDWARE TECHNICIAN UTER HARDWARE TECHNICIAN documented in this encounter Plan of Treatment Not on file documented as of this encounter Visit Diagnoses Not on filedocumented in this encounter Additional Health Concerns Infection Onset Date Last Indicated Resolved Time Ring Surveillance: C. 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 Patient may require a screening swab. No additional isolation precautions are necessary with this flag/n.moll 02/06/2025 02/06/2025 documented as of this encounter Care Teams Millinery Copyist Relationship Specialty Start Date End Date Dillon Gil PCP - General Internal Medicine 01/19/24 Jeremy Elkins MD [address] [address] [place] [address] Surgeon Vascular Surgery 12/28/24 Greg Omer MD [address], [address] [place] [address] Consulting Physician Cardiology 01/06/25 documented as of this encounter
--- OUTSIDE RECORDS SUMMARY | 2025-02-13 11:30 | XMS_ITS | Clinical Summary ---
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 01/17/2025 4:18 AM STRATEGIC SOURCING MANAGER BASIC METABOLIC PANEL Routine 01/17/2025 4:18 AM STRATEGIC SOURCING MANAGER CBC WITHOUT DIFFERENTIAL Routine 01/17/2025 4:18 AM STRATEGIC SOURCING MANAGER VASCULAR SURGERY PROCEDURE Routine 01/16/2025 11:45 AM STRATEGIC SOURCING MANAGER Ischemic rest pain of lower extremity AK AN PROCEDURE PLACEHOLDER Routine 01/16/2025 8:24 AM STRATEGIC SOURCING MANAGER AK AN ELECTIVE ENDOTRACHEAL AIRWAY Routine 01/16/2025 8:24 AM STRATEGIC SOURCING MANAGER AK AN PROCEDURE PLACEHOLDER Routine 01/16/2025 8:20 AM STRATEGIC SOURCING MANAGER EGFR Routine 01/09/2025 2:22 PM CDT Ischemic rest pain of lower extremity DIFFERENTIAL AUTO Routine 01/09/2025 2:2 2 PM CDT Ischemic rest pain of lower extremity ANTIBODY SCREEN Routine 01/09/2025 2:22 PM CDT Ischemic rest pain of lower extremity ABO/RH Routine 01/09/2025 2:22 PM CDT Ischemic rest pain of lower extremity BASIC METABOLIC PANEL Routine 01/09/2025 2:22 PM CDT Ischemic rest pain of lower extremity CBC WITH AUTO DIFFERENTIAL Routine 01/09/2025 2:22 PM CDT Ischemic rest pain of lower extremity PROTIME-INR Routine 01/09/2025 2:22 PM CDT Ischemic rest pain of lower extremity APTT Routine 01/09/2025 2:22 PM CDT Ischemic rest pain of lower extremity TYPE AND SCREEN 14 DAY Routine 01/09/2025 2:22 PM CDT Ischemic rest pain of lower extremity US GROIN PSEUDO DUPLEX LEFT Schedule Routine, Read Routine (OP Routine) 01/03/2025 11:15 AM CDT Pseudoaneurysm Other specified symptoms and signs involving the circulatory and respiratory systems ANGIOGRAPHY UNILATERAL EXTREMITY S&I [id number] Routine 12/28/2024 11:27 AM CDT Ischemic rest pain of lower extremity B ABO / RH CONFIRMATION TESTING STAT 12/28/2024 9:27 AM CDT EGFR Routine 12/28/2024 9:13 AM CDT Ischemic rest pain of lower extremity DIFFERENTIAL AUTO Routine 12/28/2024 9:1 3 AM CDT Ischemic rest pain of lower extremity ANTIBODY SCREEN Timed 12/28/2024 9:13 AM CDT Ischemic rest pain of lower extremity ABO/RH Timed 12/28/2024 9:13 AM CDT Ischemic rest pain of lower extremity PROTIME-INR Routine 12/28/2024 9:13 AM CDT Ischemic rest pain of lower extremity TYPE AND SCREEN Timed 12/28/2024 9:13 AM CDT Ischemic rest pain of lower extremity APTT Routine 12/28/2024 9:13 AM CDT Ischemic rest pain of lower extremity CBC WITH AUTO DIFFERENTIAL Routine 12/28/2024 9:13 AM CDT Ischemic rest pain of lower extremity BASIC METABOLIC PANEL Routine 12/28/2024 9:13 AM CDT Ischemic rest pain of lower extremity PROTIME-INR Routine 12/08/2024 10:01 AM CDT PAF (paroxysmal atrial fibrillation) Chronic anticoagulation PROTIME-INR Routine 11/17/2024 4:14 PM CDT PAF (paroxysmal atrial fibrillation) Chronic anticoagulation from Last 3 Months Results * (ABNORMAL) aPTT (02/06/2025 6:43 AM STRATEGIC SOURCING MANAGER) aPTT 69(H) 22 - 37 sec Comment: Interpretive data aPTT test has not been evaluated for monitoring heparin therapy. The anti-Xa is the preferred test. Current interpretive data was last revised on 2019. Blood 02/06/2025 6:43 AM STRATEGIC SOURCING MANAGER 02/06/2025 6:47 AM STRATEGIC SOURCING MANAGER Jeremy Elkins MD LAB BLOOD ORDERABLES Final Result Performing Organization Address [facility] de Phone Number [address] [place] [address] * (ABNORMAL) Protime-INR (02/06/2025 4:31 AM STRATEGIC SOURCING MANAGER) [facility] PT 18.70(H) 12.00 - 14.60 sec INR 1.57(H) 0.90 - 1.20 [facility] Comment: Interpretive data Oral anticoagulant therapeutic ranges: Venous thromboembolism prophylaxis or treatment: 2.0-3.0 CARDIOLOGY Standard range: 2.0-3.0 High-intensity range: 2.5-3.5 Refer to indication-specific guidelines for appropriate target ranges for prosthetic heart valve replacement. Current interpretive data was last revised on 2019. Blood 02/06/2025 4:31 AM STRATEGIC SOURCING MANAGER 02/06/2025 5:14 AM STRATEGIC SOURCING MANAGER Narrative [facility] - 02/06/2025 5:29 AM STRATEGIC SOURCING MANAGER Baseline prior to bivalirudin initiation. Jeremy Elkins MD LAB BLOOD ORDERABLES Final Result Performing Organization Address [facility] de Phone Number [address] [place] [address] * (ABNORMAL) CBC without differential (02/06/2025 4:31 AM STRATEGIC SOURCING MANAGER) [facility] WBC 5.77 3.80 - 9.90 K/cumm Hgb 8.2(L) 13.0 - 17.5 g/dL [facility] Hct 26.0(L) 38.9 - 50.3 % [facility] Plt 128(L) 150 - 400 K/cumm [facility] MPV 11.3 9.1 - 12.3 fL [facility] RBC 2.81(L) 4.30 - 5.80 M/cumm [facility] MCV 92.5 81.3 - 96.4 fL [facility] MCH 29.2 27.1 - 33.3 pg [facility] MCHC 31.5(L) 32.3 - 35.7 g/dL [facility] RDW CV 15.0(H) 11.1 - 14.9 % [facility] RDW SD 50.7(H) 35.7 - 48.1 fL [facility] NRBC abs 0.00 0.00 - 0.01 K/cumm [facility] Blood 02/06/2025 4:31 AM STRATEGIC SOURCING MANAGER 02/06/2025 5:14 AM STRATEGIC SOURCING MANAGER Narrative [facility] - 02/06/2025 5:39 AM STRATEGIC SOURCING MANAGER Baseline prior to bivalirudin initiation. us Jeremy Elkins MD LAB BLOOD ORDERABLES Final Result [facility] [address] [facility] Department [place] [address] * eGFR (02/05/2025 6:43 AM STRATEGIC SOURCING MANAGER) eGFR 70 >=60 mL/min/1. 73 m2 Comment: Interpretive Data Reference Interval Normal >/= 90 mL/min/1.73m2 Mildly decreased* 60 - 89 mL/min/1.73m2 Mildly to moderately decreased 45 - 59 mL/min/1.73m2 Moderately to severely decreased 30 - 44 mL/min/1.73m2 Severely decreased 15 - 29 mL/min/1.73m2 Kidney Failure < 15 mL/min/1.73m2 *Relative to young adult level Estimated glomerular filtration rate is determined by the 2020 CKD-EPI equation recommended by the National Kidney Foundation (A Unifying Approach to GFR Estimation: Recommendations of the NKF-ASK Task Force on Reassessing the Inclusion of Race in Diagnosing Kidney Disease, JASN 202). The CKD-EPI equation should not be used for patients with unstable renal function and has not been validated in children and those over 70. Current interpretive data was last reviewed 2021. Blood 02/05/2025 6:43 AM STRATEGIC SOURCING MANAGER 02/05/2025 7:31 AM STRATEGIC SOURCING MANAGER Jeremy Elkins MD LAB BLOOD ORDERABLES Final Result Performing Organization Address [facility] de Phone Number [address] [address] * (ABNORMAL) aPTT (02/05/2025 6:43 AM STRATEGIC SOURCING MANAGER) aPTT 69(H) 22 - 37 sec Comment: Interpretive data aPTT test has not been evaluated for monitoring heparin therapy. The anti-Xa is the preferred test. Current interpretive data was last revised on 2019. Blood 02/05/2025 6:43 AM STRATEGIC SOURCING MANAGER 02/05/2025 7:33 AM STRATEGIC SOURCING MANAGER Jeremy Elkins MD LAB BLOOD ORDERABLES Final Result Performing Organization Address [facility] de Phone Number [address] [address] * (ABNORMAL) Protime-INR (02/05/2025 6:43 AM STRATEGIC SOURCING MANAGER) PT 18.90(H) 12.00 - 14.60 sec INR 1.58(H) 0.90 - 1.20 [facility] Comment: Interpretive data Oral anticoagulant therapeutic ranges: Venous thromboembolism prophylaxis or treatment: 2.0-3.0 CARDIOLOGY Standard range: 2.0-3.0 High-intensity range: 2.5-3.5 Refer to indication-specific guidelines for appropriate target ranges for prosthetic heart valve replacement. Current interpretive data was last revised on 2019. Blood 02/05/2025 6:43 AM STRATEGIC SOURCING MANAGER 02/05/2025 7:33 AM STRATEGIC SOURCING MANAGER Narrative [facility] - 02/05/2025 8:07 AM STRATEGIC SOURCING MANAGER Baseline prior to bivalirudin initiation. us Jeremy Elkins MD LAB BLOOD ORDERABLES Final Result Performing Organization Address [facility] de Phone Number [facility] [place] [address] * (ABNORMAL) CBC without differential (02/05/2025 6:43 AM STRATEGIC SOURCING MANAGER) [facility] WBC 5.62 3.80 - 9.90 K/cumm Hgb 8.0(L) 13.0 - 17.5 g/dL [facility] Hct 25.6(L) 38.9 - 50.3 % [facility] Plt 135(L) 150 - 400 K/cumm [facility] MPV 11.5 9.1 - 12.3 fL [facility] RBC 2.82(L) 4.30 - 5.80 M/cumm [facility] MCV 90.8 81.3 - 96.4 fL [facility] MCH 28.4 27.1 - 33.3 pg [facility] MCHC 31.3(L) 32.3 - 35.7 g/dL [facility] RDW CV 14.9 11.1 - 14.9 % [facility] RDW SD 49.3(H) 35.7 - 48.1 fL [facility] NRBC abs 0.00 0.00 - 0.01 K/cumm [facility] Blood 02/05/2025 6:43 AM STRATEGIC SOURCING MANAGER 02/05/2025 7:33 AM STRATEGIC SOURCING MANAGER Narrative [facility] - 02/05/2025 7:40 AM STRATEGIC SOURCING MANAGER Baseline prior to bivalirudin initiation. Jeremy Elkins MD LAB BLOOD ORDERABLES Final Result Performing Organization Address [facility] Co de Phone Number [facility] [address] [facility] [place], [place] [id number] * (ABNORMAL) Basic metabolic panel (02/05/2025 6:43 AM STRATEGIC SOURCING MANAGER) [facility] Sodium 139 135 - 145 mmol/L Potassium, pl 4.6 3.3 - 4.9 mmol/L [facility] Chloride 105 97 - 110 mmol/L [facility] CO2 28 22 - 32 mmol/L [facility] Anion gap 6 2 - 15 mmol/L [facility] BUN 17 6 - 25 mg/dL [facility] Creatinine 1.08 0.80 - 1.30 mg/dL [facility] Glucose 122 70 - 199 mg/dL [facility] Comment: Interpretive Data Fasting glucose >/= 126 mg/dl is diagnostic for diabetes. Fasting is defined as no caloric intake for at least 8 hours. Fasting glucose between 100 mg/dl to 125 mg/dl is diagnostic of prediabetes. In a patient with classic symptoms of hyperglycemia or hyperglycemic crisis, a random glucose >/= 200 mg/dl is diagnostic for diabetes. In the absence of unequivocal hyperglycemia, results should be confirmed by repeat testing. The classification and Diagnosis of Diabetes Diabetes Care 2021; 46: S19-S40. Current interpretive data was last revised 2022. Calcium 8.4(L) 8.5 - 10.3 mg/dL [facility] Blood 02/05/2025 6:43 AM STRATEGIC SOURCING MANAGER 02/05/2025 7:31 AM STRATEGIC SOURCING MANAGER Jeremy Elkins MD LAB BLOOD ORDERABLES Final Result Performing Organization Address [facility] Co de Phone Number [address] [place] [address] * (ABNORMAL) aPTT (02/04/2025 8:36 AM STRATEGIC SOURCING MANAGER) aPTT 65(H) 22 - 37 sec Comment: Interpretive data aPTT test has not been evaluated for monitoring heparin therapy. The anti-Xa is the preferred test. Current interpretive data was last revised on 2019. Blood 02/04/2025 8:36 AM STRATEGIC SOURCING MANAGER 02/04/2025 8:45 AM STRATEGIC SOURCING MANAGER Jeremy Elkins MD LAB BLOOD ORDERABLES Final Result Performing Organization Address [facility] Co de Phone Number [address] [place] [address] * (ABNORMAL) Protime-INR (02/04/2025 5:44 AM STRATEGIC SOURCING MANAGER) PT 20.00(H) 12.00 - 14.60 sec INR 1.70(H) 0.90 - 1.20 [facility] Comment: Interpretive data Oral anticoagulant therapeutic ranges: Venous thromboembolism prophylaxis or treatment: 2.0-3.0 CARDIOLOGY Standard range: 2.0-3.0 High-intensity range: 2.5-3.5 Refer to indication-specific guidelines for appropriate target ranges for prosthetic heart valve replacement. Current interpretive data was last revised on 2019. Blood 02/04/2025 5:44 AM STRATEGIC SOURCING MANAGER 02/04/2025 5:56 AM STRATEGIC SOURCING MANAGER Narrative [facility] - 02/04/2025 6:05 AM STRATEGIC SOURCING MANAGER Baseline prior to bivalirudin initiation. us Jeremy Elkins MD LAB BLOOD ORDERABLES Final Result [facility] [address] [facility] Department of [facility] [place], [place] [id number] * (ABNORMAL) CBC without differential (02/04/2025 5:44 AM STRATEGIC SOURCING MANAGER) [facility] WBC 6.27 3.80 - 9.90 K/cumm Hgb 8.0(L) 13.0 - 17.5 g/dL [facility] Hct 25.8(L) 38.9 - 50.3 % [facility] Plt 122(L) 150 - 400 K/cumm [facility] MPV 11.2 9.1 - 12.3 fL [facility] RBC 2.78(L) 4.30 - 5.80 M/cumm [facility] MCV 92.8 81.3 - 96.4 fL [facility] MCH 28.8 27.1 - 33.3 pg [facility] MCHC 31.0(L) 32.3 - 35.7 g/dL [facility] RDW CV 15.3(H) 11.1 - 14.9 % [facility] RDW SD 51.6(H) 35.7 - 48.1 fL [facility] NRBC abs 0.00 0.00 - 0.01 K/cumm [facility] Blood 02/04/2025 5:44 AM STRATEGIC SOURCING MANAGER 02/04/2025 5:56 AM STRATEGIC SOURCING MANAGER Narrative [facility] - 02/04/2025 6:01 AM STRATEGIC SOURCING MANAGER Baseline prior to bivalirudin initiation. Jeremy Elkins MD LAB BLOOD ORDERABLES Final Result Performing Organization Address [facility] de Phone Number [address] [address] * (ABNORMAL) aPTT (02/03/2025 5:23 AM STRATEGIC SOURCING MANAGER) aPTT 63(H) 22 - 37 sec Comment: Interpretive data aPTT test has not been evaluated for monitoring heparin therapy. The anti-Xa is the preferred test. Current interpretive data was last revised on 2019. Blood 02/03/2025 5:23 AM STRATEGIC SOURCING MANAGER 02/03/2025 5:41 AM STRATEGIC SOURCING MANAGER Jeremy Elkins MD LAB BLOOD ORDERABLES Final Result Performing Organization Address [facility] de Phone Number [address] [address] * (ABNORMAL) Protime-INR (02/03/2025 5:23 AM STRATEGIC SOURCING MANAGER) PT 20.90(H) 12.00 - 14.60 sec Comment:Delta - Results Revi ewed INR 1.81(H) 0.90 - 1.20 [facility] Comment: Interpretive data Oral anticoagulant therapeutic ranges: Venous thromboembolism prophylaxis or treatment: 2.0-3.0 CARDIOLOGY Standard range: 2.0-3.0 High-intensity range: 2.5-3.5 Refer to indication-specific guidelines for appropriate target ranges for prosthetic heart valve replacement. Current interpretive data was last revised on 2019. Blood 02/03/2025 5:23 AM STRATEGIC SOURCING MANAGER 02/03/2025 5:41 AM STRATEGIC SOURCING MANAGER Narrative [facility] 02/03/2025 6:19 AM STRATEGIC SOURCING MANAGER Baseline prior to bivalirudin initiation. us Jeremy Elkins MD LAB BLOOD ORDERABLES Final Result Performing Organization Address [facility] Co de Phone Number [facility] [address] [address] * (ABNORMAL) CBC without differential (02/03/2025 5:23 AM STRATEGIC SOURCING MANAGER) Pathologist [facility] WBC 8.64 3.80 - 9.90 K/cumm Hgb 9.1(L) 13.0 - 17.5 g/dL [facility] Hct 28.6(L) 38.9 - 50.3 % [facility] Plt 145(L) 150 - 400 K/cumm [facility] MPV 10.9 9.1 - 12.3 fL [facility] RBC 3.16(L) 4.30 - 5.80 M/cumm [facility] MCV 90.5 81.3 - 96.4 fL [facility] MCH 28.8 27.1 - 33.3 pg [facility] MCHC 31.8(L) 32.3 - 35.7 g/dL [facility] RDW CV 15.2(H) 11.1 - 14.9 % [facility] RDW SD 50.3(H) 35.7 - 48.1 fL [facility] NRBC abs 0.00 0.00 - 0.01 K/cumm [facility] Blood 02/03/2025 5:23 AM STRATEGIC SOURCING MANAGER 02/03/2025 5:41 AM STRATEGIC SOURCING MANAGER Narrative [facility] - 02/03/2025 5:49 AM STRATEGIC SOURCING MANAGER Baseline prior to bivalirudin initiation. us Jeremy Elkins MD LAB BLOOD ORDERABLES Final Result Performing Organization Address [facility] Co de Phone Number [facility] [address] [place] [address] * (ABNORMAL) aPTT (02/03/2025 12:20 AM STRATEGIC SOURCING MANAGER) Pathologist [facility] aPTT 68(H) 22 - 37 sec Comment: Interpretive data aPTT test has not been evaluated for monitoring heparin therapy. The anti-Xa is the preferred test. Current interpretive data was last revised on 2019. Blood 02/03/2025 12:2 0 AM STRATEGIC SOURCING MANAGER 02/03/2025 12:40 AM STRATEGIC SOURCING MANAGER Narrative [facility] - 02/03/2025 12:54 AM STRATEGIC SOURCING MANAGER Draw STAT PTT 2 hours after initiation of bivalirudin infusion, draw STAT PTT 2 hours after each dose change, and every 2 hours until 2 consecutive PTTs are within therapeutic range. Once two consecutive PTTs are therapeutic (45-75 seconds), then draw PTT every AM until bivalirudin is discontinued. Jeremy Elkins MD LAB BLOOD ORDERABLES Final Result Performing Organization Address [facility] Co de Phone Number [facility] [address] [place] [address] * eGFR (02/02/2025 8:51 PM STRATEGIC SOURCING MANAGER) eGFR 79 >=60 mL/min/1. 73 m2 Comment: Interpretive Data Reference Interval Normal >/= 90 mL/min/1.73m2 Mildly decreased* 60 - 89 mL/min/1.73m2 Mildly to moderately decreased 45 - 59 mL/min/1.73m2 Moderately to severely decreased 30 - 44 mL/min/1.73m2 Severely decreased 15 - 29 mL/min/1.73m2 Kidney Failure < 15 mL/min/1.73m2 *Relative to young adult level Estimated glomerular filtration rate is determined by the 2020 CKD-EPI equation recommended by the National Kidney Foundation (A Unifying Approach to GFR Estimation: Recommendations of the NKF-ASK Task Force on Reassessing the Inclusion of Race in Diagnosing Kidney Disease, JASN 2020). The CKD-EPI equation should not be used for patients with unstable renal function and has not been validated in children and those over 70. Current interpretive data was last reviewed 2021. Blood 02/02/2025 8:51 PM STRATEGIC SOURCING MANAGER 02/02/2025 9:00 PM STRATEGIC SOURCING MANAGER us Jeremy Elkins MD LAB BLOOD ORDERABLES Final Result Performing Organization Address [facility]/ZIP Co de Phone Number [facility] [address] [place] [address] * (ABNORMAL) aPTT (02/02/2025 8:51 PM STRATEGIC SOURCING MANAGER) Pathologist [facility] aPTT 68(H) 22 - 37 sec Comment: Interpretive data aPTT test has not been evaluated for monitoring heparin therapy. The anti-Xa is the preferred test. Current interpretive data was last revised on 2019. Blood 02/02/2025 8:51 PM STRATEGIC SOURCING MANAGER 02/02/2025 9:00 PM STRATEGIC SOURCING MANAGER Jeremy Elkins MD LAB BLOOD ORDERABLES Final Result Performing Organization Address City/[facility]/ZIP Co de Phone Number [facility] [address] [place] [address] * (ABNORMAL) CBC without differential (02/02/2025 8:51 PM STRATEGIC SOURCING MANAGER) [facility] WBC 9.36 3.80 - 9.90 K/cumm Hgb 9.8(L) 13.0 - 17.5 g/dL [facility] Hct 30.5(L) 38.9 - 50.3 % [facility] Plt 165 150 - 400 K/cumm [facility] MPV 11.1 9.1 - 12.3 fL [facility] RBC 3.39(L) 4.30 - 5.80 M/cumm [facility] MCV 90.0 81.3 - 96.4 fL [facility] MCH 28.9 27.1 - 33.3 pg [facility] MCHC 32.1(L) 32.3 - 35.7 g/dL [facility] RDW CV 15.3(H) 11.1 - 14.9 % [facility] RDW SD 50.4(H) 35.7 - 48.1 fL [facility] NRBC abs 0.00 0.00 - 0.01 K/cumm [facility] Blood 02/02/2025 8:51 PM STRATEGIC SOURCING MANAGER 02/02/2025 9:00 PM STRATEGIC SOURCING MANAGER Jeremy Elkins MD LAB BLOOD ORDERABLES Final Result [facility] [address] [place] [address] * (ABNORMAL) Basic metabolic panel (02/02/2025 8:51 PM STRATEGIC SOURCING MANAGER) [facility] Sodium 138 135 - 145 mmol/L Potassium, pl 4.7 3.3 - 4.9 mmol/L [facility] Chloride 106 97 - 110 mmol/L [facility] CO2 23 22 - 32 mmol/L [facility] Anion gap 9 2 - 15 mmol/L [facility] BUN 16 6 - 25 mg/dL [facility] Creatinine 0.98 0.80 - 1.30 mg/dL [facility] Glucose 169 70 - 199 mg/dL [facility] Comment: Interpretive Data Fasting glucose >/= 126 mg/dl is diagnostic for diabetes. Fasting is defined as no caloric intake for at least 8 hours. Fasting glucose between 100 mg/dl to 125 mg/dl is diagnostic of prediabetes. In a patient with classic symptoms of hyperglycemia or hyperglycemic crisis, a random glucose >/= 200 mg/dl is diagnostic for diabetes. In the absence of unequivocal hyperglycemia, results should be confirmed by repeat testing. The classification and Diagnosis of Diabetes Diabetes Care 2021; 46: S19-S40. Current interpretive data was last revised 2022. Calcium 8.2(L) 8.5 - 10.3 mg/dL [facility] Blood 02/02/2025 8:51 PM STRATEGIC SOURCING MANAGER 02/02/2025 9:00 PM STRATEGIC SOURCING MANAGER Jeremy Elkins MD LAB BLOOD ORDERABLES Final Result [facility] [address] [facility] Department [place] [address] * (ABNORMAL) CBC without differential (02/02/2025 3:16 PM STRATEGIC SOURCING MANAGER) [facility] WBC 5.54 3.80 - 9.90 K/cumm Hgb 8.8(L) 13.0 - 17.5 g/dL [facility] Hct 27.7(L) 38.9 - 50.3 % [facility] Plt 154 150 - 400 K/cumm [facility] MPV 10.8 9.1 - 12.3 fL [facility] RBC 3.06(L) 4.30 - 5.80 M/cumm [facility] MCV 90.5 81.3 - 96.4 fL [facility] MCH 28.8 27.1 - 33.3 pg [facility] MCHC 31.8(L) 32.3 - 35.7 g/dL [facility] RDW CV 14.9 11.1 - 14.9 % [facility] RDW SD 49.4(H) 35.7 - 48.1 fL [facility] NRBC abs 0.00 0.00 - 0.01 K/cumm [facility] Blood 02/02/2025 3:16 PM STRATEGIC SOURCING MANAGER 02/02/2025 3:20 PM STRATEGIC SOURCING MANAGER Result [facility] Ronald Burris MD LAB BLOOD ORDERABLES F inal Result Performing Organization Address City/[facility]/ZIP Co de Phone Number [address] [place] [address] * Transfuse plasma (02/02/2025 3:01 PM STRATEGIC SOURCING MANAGER) Blood Result [facility] Ronald Burris MD BLOOD TRANSFUSION ORDE JESSI Final Result Performing Organization Address [facility] Co de Phone Number [address] [place] [address] * FEMORAL EMBOLECTOMY/THROMBECTOMY (02/02/2025 2:45 PM STRATEGIC SOURCING MANAGER) Anatomical Region Laterality Modality X-Ray Angiograph y Narrative 02/02/2025 4:24 PM STRATEGIC SOURCING MANAGER Please see OpNote for result. Jeremy Elkins MD SURGICAL CASE ORDERS Final Result * Transfuse RBC (02/02/2025 2:31 PM STRATEGIC SOURCING MANAGER) Blood Ronald Burris MD BLOOD TRANSFUSION ORDE JESSI Final Result Performing Organization Address City/[facility]/ZIP Co de Phone Number [address] [address] * Prepare plasma: 1 Units (02/02/2025 1:59 PM STRATEGIC SOURCING MANAGER) Plasma # of units / Ready 1 Plasma # of units / Ready Ready [facility] Unit Number [id number] Product code [id number] [facility] Blood Expiration Date 033283210107 [facility] Product Blood Type (for scanning) 6200 [facility] Product Blood Type APOS [facility] Dispense Status DISPENSED [facility] Blood Venous blood specimen / Unknown 02/02/2025 1:59 PM STRATEGIC SOURCING MANAGER 02/02/2025 1:59 PM STRATEGIC SOURCING MANAGER Ronald Burris MD BLOOD BANK PRODUCT ORD ERABLES Final Result Performing Organization Address City/[facility]/ZIP Co de Phone Number [address] [address] * Prepare RBC: 1 Units (02/02/2025 1:59 PM STRATEGIC SOURCING MANAGER) Pathologist [facility] Units requested 1 Units requested Ready [facility] Unit Number [id number] Product code [id number] [facility] Blood Expiration Date [id number] [facility] Product Blood Type (for scanning) 6200 [facility] Product [facility] Dispense Status DISPENSED [facility] Blood 02/02/2025 1:59 PM STRATEGIC SOURCING MANAGER 02/02/2025 1:59 PM STRATEGIC SOURCING MANAGER Ronald Burris MD BLOOD BANK PRODUCT ORD ERABLES Final Result [address] [address] * [place] Fluoroscopy < 1 Hour (02/02/2025 1:54 PM STRATEGIC SOURCING MANAGER) Narrative [id number] - 02/02/2025 1:54 PM STRATEGIC SOURCING MANAGER The images from this study are not interpreted by Radiology. Please refer to the physician's procedure / OR operative note. Jeremy Elkins MD IMG FLUOROSCOPY PROCEDURES Final Result Performing Organization Address [facility]/ZIP Co de Phone Number [email or web address] * (ABNORMAL) aPTT (02/02/2025 12:57 PM STRATEGIC SOURCING MANAGER) aPTT >150(C) 22 - 37 sec Comment: Critical Result called to and read back by Skye Mendes [place], DATE: 2025-02-02 13:25:54 BY: [email or web address] Interpretive data aPTT test has not been evaluated for monitoring heparin therapy. The anti-Xa is the preferred test. Current interpretive data was last revised on 2019. Blood 02/02/2025 12:5 7 PM STRATEGIC SOURCING MANAGER 02/02/2025 1:03 PM STRATEGIC SOURCING MANAGER Ronald Burris MD LAB BLOOD ORDERABLES F inal Result Performing Organization Address [facility] Co de Phone Number SMITA [address] [facility] Department [place] [address] * (ABNORMAL) Protime-INR (02/02/2025 12:57 PM STRATEGIC SOURCING MANAGER) PT 85.70(H) 12.00 - 14.60 sec Comment:Delta - Results Revi ewed INR 11.48(C) 0.90 - 1.20 [facility] Comment: Critical Result called to and read back by Skye Mendes OR, DATE: 2025-02-02 13:25:54 BY: [email or web address] Interpretive data Oral anticoagulant therapeutic ranges: Venous thromboembolism prophylaxis or treatment: 2.0-3.0 CARDIOLOGY Standard range: 2.0-3.0 High-intensity range: 2.5-3.5 Refer to indication-specific guidelines for appropriate target ranges for prosthetic heart valve replacement. Current interpretive data was last revised on 2019. Blood 02/02/2025 12:5 7 PM STRATEGIC SOURCING MANAGER 02/02/2025 1:03 PM STRATEGIC SOURCING MANAGER Ronald Burris MD LAB BLOOD ORDERABLES F inal Result Performing Organization Address City/[facility]/ZIP Co de Phone Number SMITA [address] [place] [address] * (ABNORMAL) CBC without differential (02/02/2025 12:38 PM STRATEGIC SOURCING MANAGER) [facility] WBC 6.35 3.80 - 9.90 K/cumm Hgb 8.3(L) 13.0 - 17.5 g/dL [facility] Hct 26.1(L) 38.9 - 50.3 % [facility] Plt 191 150 - 400 K/cumm [facility] MPV 10.9 9.1 - 12.3 fL [facility] RBC 2.90(L) 4.30 - 5.80 M/cumm [facility] MCV 90.0 81.3 - 96.4 fL [facility] MCH 28.6 27.1 - 33.3 pg [facility] MCHC 31.8(L) 32.3 - 35.7 g/dL [facility] RDW CV 15.3(H) 11.1 - 14.9 % [facility] RDW SD 49.8(H) 35.7 - 48.1 fL [facility] NRBC abs 0.00 0.00 - 0.01 K/cumm [facility] Blood 02/02/2025 12:3 8 PM STRATEGIC SOURCING MANAGER 02/02/2025 12:39 PM STRATEGIC SOURCING MANAGER Ronald Burris MD LAB BLOOD ORDERABLES F inal Result Performing Organization Address City/[facility]/ZIP Co de Phone Number SMITA [address] [place] [address] * Transfuse RBC (02/02/2025 12:23 PM STRATEGIC SOURCING MANAGER) Blood Ronald Burris MD BLOOD TRANSFUSION ORDE JESSI Final Result Performing Organization Address City/[facility]/ZIP Co de Phone Number LILIA[address] [address] * Prepare RBC: 1 Units (02/02/2025 11:50 AM STRATEGIC SOURCING MANAGER) Units requested 1 Units requested Ready [facility] Unit Number [id number] Product code [id number] [facility] Blood Expiration Date [id number] [facility] Product Blood Type (for scanning) 6200 [facility] Product Blood Type APOS [facility] Dispense Status DISPENSED [facility] Blood 02/02/2025 11:5 0 AM STRATEGIC SOURCING MANAGER 02/02/2025 11:50 AM STRATEGIC SOURCING MANAGER Ronald Burris MD BLOOD BANK PRODUCT ORD ERABLES Final Result [facility] [address] [facility] Department [place] [address] * [place] AN PROCEDURE PLACEHOLDER (02/02/2025 10:37 AM STRATEGIC SOURCING MANAGER) Narrative Matthew Gauthier CRNA - 02/02/2025 10:37 AM STRATEGIC SOURCING MANAGER Matthew Gauthier CRNA 02/02/2025 10:38 AM Peripheral IV Catheter Patient location: OR End time: 02/02/2025 10:27 AM Staff: Placed by: FLORI: Matthew Gauthier CRNA Preprocedure prep: Prep solution: alcohol PPE: gloves and provider hat/mask PIV line: Laterality: left Site: forearm Catheter size: 18 g Technique: anatomical landmarks, palpatation and ultrasound guided Procedure details: good blood return and occlusive dressing applied Number of attempts: 2 Assessment: Events: patient tolerated procedure well with no complications Additional comments: FRANKY Cristina successfully placed PIV under ultrasound guidance. Ronald Burris MD ANESTHESIA ORDERABLES Final Result * AK AN PROCEDURE PLACEHOLDER (02/02/2025 10:36 AM STRATEGIC SOURCING MANAGER) Narrative Matthew Gauthier CRNA - 02/02/2025 10:36 AM STRATEGIC SOURCING MANAGER Matthew Gauthier CRNA 02/02/2025 10:37 AM Arterial Line Patient location: OR End time: 02/02/2025 10:21 AM Indication: continuous blood pressure monitoring Ultrasound assisted: yes Staff: Placed by: REPAIR SUPERVISOR: Matthew Gauthier CRNA Procedure prep: Prep solution: chlorhexadine/alcohol Prep: provider hat/mask Arterial line: Catheter size: 20 gauge Arterial line catheter length: 1 1\2 Catheter type: wire-guided catheter Seldinger technique: yes Laterality: right Site: radial artery Line secured: tape and Tegaderm Results: good waveform and good blood return Number of attempts: 1 Assessment: Events: patient tolerated procedure well with no complications Additional comments: FRANKY Cristina successfully placed arterial line under ultrasound guidance. Ronald Burris MD ANESTHESIA ORDERABLES Final Result * AK AN ELECTIVE ENDOTRACHEAL AIRWAY, AK AN PROCEDURE PLACEHOLDER (02/02/2025 10:33 AM STRATEGIC SOURCING MANAGER) Matthew Clifton CRNA - 02/02/2025 10:33 AM STRATEGIC SOURCING MANAGER Matthew Gauthier CRNA 02/02/2025 10:34 AM Airway Patient location: OR Urgency: elective Date/time: 02/02/2025 10:16 AM Indications for airway management: anesthesia Difficult airway: no Staff: Placed by: REPAIR SUPERVISOR: Matthew Gauthier CRNA Emergent airway documentation: Risks and benefits discussed: yes Consent obtained: yes Consent given by: patient Airway prep: Preoxygenated: yes Patient position: sniffing Mask difficulty assessment: 2 - vent by mask + OA or adjuvant Spontaneous ventilation during airway: absent Sedation level during airway: deep Final airway details: Final airway type: endotracheal airway Tube type: ETT ETT size: 8.0 mm Cuffed: yes Technique used for successful ETT placement: direct laryngoscopy Devices/Methods used in placement: intubating stylet Insertion site: oral Blade type: Marvel Blade size: 4 Cormack-Lehane (direct): grade I - full view of glottis Cuff volume: 5 mL Cuff inflated with: air ETT to lips: 22 cm Placement verified by: auscultation and CO2 detection Airway secured with: other (pink tape) Number of attempts: 1 Additional comments: Atraumatic intubation by FRANKY Cristina. Ronald Burris MD ANESTHESIA ORDERABLES Final Result * ECG 12 lead (02/02/2025 8:40 AM STRATEGIC SOURCING MANAGER) Ventricular Rate EKG/Min 67 BPM [facility] Atrial Rate 67 BPM [facility] AK-Interval (MSEC) 214 ms [facility] QRS-Interval (MSEC) 92 ms [facility] QT-Interval (MSEC) 458 ms [facility] QTc 483 ms [facility] P [place] 52 degrees [facility] R [place] 13 degrees [facility] T [place] 47 degrees [facility] Diagnosis Sinus rhythm with 1st degree A-V block Confirmed by CHERRY GONZALEZ M.D. ([id number]) on 02/02/2025 1:42:14 PM [facility] 02/02/2025 8:40 AM STRATEGIC SOURCING MANAGER 02/02/2025 1:42 PM STRATEGIC SOURCING MANAGER us Ronald Burris MD ECG ORDERABLES Final Result [facility] * eGFR (02/02/2025 8:36 AM STRATEGIC SOURCING MANAGER) eGFR 73 >=60 mL/min/1. 73 m2 Comment: Interpretive Data Reference Interval Normal >/= 90 mL/min/1.73m2 Mildly decreased* 60 - 89 mL/min/1.73m2 Mildly to moderately decreased 45 - 59 mL/min/1.73m2 Moderately to severely decreased 30 - 44 mL/min/1.73m2 Severely decreased 15 - 29 mL/min/1.73m2 Kidney Failure < 15 mL/min/1.73m2 *Relative to young adult level Estimated glomerular filtration rate is determined by the 2020 CKD-EPI equation recommended by the National Kidney Foundation (A Unifying Approach to GFR Estimation: Recommendations of the NKF-ASK Task Force on Reassessing the Inclusion of Race in Diagnosing Kidney Disease, JASN 2020). The CKD-EPI equation should not be used for patients with unstable renal function and has not been validated in children and those over 70. Current interpretive data was last reviewed 2021. Blood 02/02/2025 8:36 AM STRATEGIC SOURCING MANAGER 02/02/2025 8:38 AM STRATEGIC SOURCING MANAGER us Jeremy Elkins MD LAB BLOOD ORDERABLES Final Result [facility] [place] [address] * Differential, auto (02/02/2025 8:36 AM STRATEGIC SOURCING MANAGER) Neutrophil abs 3.06 1.50 - 6.50 K/cumm Imm gran abs 0.02 0.00 - 0.10 K/cumm [facility] Lymphocyte abs 1.75 0.80 - 3.30 K/cumm [facility] Monocyte abs 0.52 0.20 - 0.80 K/cumm [facility] Eosinophil abs 0.17 0.00 - 0.50 K/cumm [facility] Basophil abs 0.02 0.00 - 0.10 K/cumm [facility] Neutrophil pct 55.1 % [facility] Comment: Interpretive Data Percent cell count reference ranges are not reported, since discordance with absolute values may lead to misinterpretation of CBC data. Current Interpretive Data was last revised on 2017. Imm gran pct 0.4 % [facility] Comment: Interpretive Data Percent cell count reference ranges are not reported, since discordance with absolute values may lead to misinterpretation of CBC data. Current Interpretive Data was last revised on 2017. Lymphocyte pct 31.6 % [facility] Comment: Interpretive Data Percent cell count reference ranges are not reported, since discordance with absolute values may lead to misinterpretation of CBC data. Current Interpretive Data was last revised on 2017. Monocyte pct 9.4 % [facility] Comment: Interpretive Data Percent cell count reference ranges are not reported, since discordance with absolute values may lead to misinterpretation of CBC data. Current Interpretive Data was last revised on 2017. Eosinophil pct 3.1 % [facility] Comment: Interpretive Data Percent cell count reference ranges are not reported, since discordance with absolute values may lead to misinterpretation of CBC data. Current Interpretive Data was last revised on 2017. Basophil pct 0.4 % [facility] Comment: Interpretive Data Percent cell count reference ranges are not reported, since discordance with absolute values may lead to misinterpretation of CBC data. Current Interpretive Data was last revised on 2017. Blood 02/02/2025 8:36 AM STRATEGIC SOURCING MANAGER 02/02/2025 8:38 AM STRATEGIC SOURCING MANAGER us Jeremy Elkins MD LAB BLOOD ORDERABLES Final Result Performing Organization Address [facility] de Phone Number [facility] [address] [address] * (ABNORMAL) CBC with auto differential (02/02/2025 8:36 AM STRATEGIC SOURCING MANAGER) Pathologist [facility] WBC 5.54 3.80 - 9.90 K/cumm Hgb 9.0(L) 13.0 - 17.5 g/dL [facility] Hct 28.1(L) 38.9 - 50.3 % [facility] Plt 187 150 - 400 K/cumm [facility] MPV 10.9 9.1 - 12.3 fL [facility] RBC 3.09(L) 4.30 - 5.80 M/cumm [facility] MCV 90.9 81.3 - 96.4 fL [facility] MCH 29.1 27.1 - 33.3 pg [facility] MCHC 32.0(L) 32.3 - 35.7 g/dL [facility] RDW CV 15.0(H) 11.1 - 14.9 % [facility] RDW SD 49.9(H) 35.7 - 48.1 fL [facility] NRBC abs 0.00 0.00 - 0.01 K/cumm [facility] Blood 02/02/2025 8:36 AM STRATEGIC SOURCING MANAGER 02/02/2025 8:38 AM STRATEGIC SOURCING MANAGER Jeremy Elkins MD LAB BLOOD ORDERABLES Final Result Performing Organization Address [facility] Co de Phone Number [address] [address] * ABO/Rh (02/02/2025 8:36 AM STRATEGIC SOURCING MANAGER) [facility] ABO/Rh A Positive Blood 02/02/2025 8:36 AM STRATEGIC SOURCING MANAGER 02/02/2025 8:38 AM STRATEGIC SOURCING MANAGER Narrative [facility] - 02/02/2025 9:16 AM STRATEGIC SOURCING MANAGER Has the patient had Daratumumab or Isatuximab in the past 6 months?->Unknown Jeremy Elkins MD LAB BLOOD BANK TEST ORDERA BLES Final Result Performing Organization Address [facility] Co de Phone Number SM[facility] [address] [place] [address] * aPTT (02/02/2025 8:36 AM STRATEGIC SOURCING MANAGER) Pathologist [facility] aPTT 27 22 - 37 sec Comment: Interpretive data aPTT test has not been evaluated for monitoring heparin therapy. The anti-Xa is the preferred test. Current interpretive data was last revised on 2019. Blood 02/02/2025 8:36 AM STRATEGIC SOURCING MANAGER 02/02/2025 8:38 AM STRATEGIC SOURCING MANAGER Jeremy Elkins MD LAB BLOOD ORDERABLES Final Result Performing Organization Address [facility] de Phone Number SMITA [address] [address] * (ABNORMAL) Protime-INR (02/02/2025 8:36 AM STRATEGIC SOURCING MANAGER) Pathologist [facility] PT 14.70(H) 12.00 - 14.60 sec INR 1.14 0.90 - 1.20 [facility] Comment: Interpretive data Oral anticoagulant therapeutic ranges: Venous thromboembolism prophylaxis or treatment: 2.0-3.0 CARDIOLOGY Standard range: 2.0-3.0 High-intensity range: 2.5-3.5 Refer to indication-specific guidelines for appropriate target ranges for prosthetic heart valve replacement. Current interpretive data was last revised on 2019. Blood 02/02/2025 8:36 AM STRATEGIC SOURCING MANAGER 02/02/2025 8:38 AM STRATEGIC SOURCING MANAGER Result [facility] Jeremy Elkins MD LAB BLOOD ORDERABLES Final Result Performing Organization Address [facility] Co de Phone Number [facility] [address] [place] [address] * Crossmatch (02/02/2025 8:36 AM STRATEGIC SOURCING MANAGER) Pathologist [facility] Crossmatch Compatible [facility] Unit number for crossmatch [id number] [facility] Crossmatch Compatible [facility] Unit number for crossmatch [id number] [facility] Blood 02/02/2025 8:36 AM STRATEGIC SOURCING MANAGER 02/02/2025 8:38 AM STRATEGIC SOURCING MANAGER Jeremy Elkins MD LAB BLOOD BANK TEST ORDERA BLES Edited Result - Final Performing Organization Address [facility] de Phone Number [address] [address] * Antibody screen (02/02/2025 8:36 AM STRATEGIC SOURCING MANAGER) [facility] Gael, indirect, Gel Interpretation Negative ABSC Blood 02/02/2025 8:36 AM STRATEGIC SOURCING MANAGER 02/02/2025 8:38 AM STRATEGIC SOURCING MANAGER Narrative [facility] - 02/02/2025 9:16 AM STRATEGIC SOURCING MANAGER Has the patient had Daratumumab or Isatuximab in the past 6 months?->Unknown Jeremy Elkins MD LAB BLOOD BANK TEST ORDERA BLES Final Result Performing Organization Address [facility] de Phone Number [address] [address] * Basic metabolic panel (02/02/2025 8:36 AM STRATEGIC SOURCING MANAGER) [facility] Sodium 140 135 - 145 mmol/L Potassium, pl 4.3 3.3 - 4.9 mmol/L [facility] Chloride 106 97 - 110 mmol/L [facility] CO2 27 22 - 32 mmol/L [facility] Anion gap 7 2 - 15 mmol/L [facility] BUN 19 6 - 25 mg/dL [facility] Creatinine 1.05 0.80 - 1.30 mg/dL [facility] Glucose 125 70 - 199 mg/dL [facility] Comment: Interpretive Data Fasting glucose >/= 126 mg/dl is diagnostic for diabetes. Fasting is defined as no caloric intake for at least 8 hours. Fasting glucose between 100 mg/dl to 125 mg/dl is diagnostic of prediabetes. In a patient with classic symptoms of hyperglycemia or hyperglycemic crisis, a random glucose >/= 200 mg/dl is diagnostic for diabetes. In the absence of unequivocal hyperglycemia, results should be confirmed by repeat testing. The classification and Diagnosis of Diabetes Diabetes Care 202; 46: S19-S40. Current interpretive data was last revised 2022. Calcium 8.6 8.5 - 10.3 mg/dL [facility] Blood 02/02/2025 8:36 AM STRATEGIC SOURCING MANAGER 02/02/2025 8:38 AM STRATEGIC SOURCING MANAGER Jeremy Elkins MD LAB BLOOD ORDERABLES Final Result Performing Organization Address [facility] Co de Phone Number LILIA[address] [place] [address] * eGFR (01/19/2025 5:12 AM STRATEGIC SOURCING MANAGER) eGFR 77 >=60 mL/min/1. 73 m2 Comment: Interpretive Data Reference Interval Normal >/= 90 mL/min/1.73m2 Mildly decreased* 60 - 89 mL/min/1.73m2 Mildly to moderately decreased 45 - 59 mL/min/1.73m2 Moderately to severely decreased 30 - 44 mL/min/1.73m2 Severely decreased 15 - 29 mL/min/1.73m2 Kidney Failure < 15 mL/min/1.73m2 *Relative to young adult level Estimated glomerular filtration rate is determined by the 2020 CKD-EPI equation recommended by the National Kidney Foundation (A Unifying Approach to GFR Estimation: Recommendations of the NKF-ASK Task Force on Reassessing the Inclusion of Race in Diagnosing Kidney Disease, JASN 2020). The CKD-EPI equation should not be used for patients with unstable renal function and has not been validated in children and those over 70. Current interpretive data was last reviewed 2021. Blood 01/19/2025 5:12 AM STRATEGIC SOURCING MANAGER 01/19/2025 5:17 AM STRATEGIC SOURCING MANAGER Jeremy Elkins MD LAB BLOOD ORDERABLES Final Result Performing Organization Address City/[facility]/ZIP Co de Phone Number LILIANER [facility] [address] [facility] [place] [address] * Protime-INR (01/19/2025 5:12 AM STRATEGIC SOURCING MANAGER) [facility] PT 13.60 12.00 - 14.60 sec INR 1.03 0.90 - 1.20 [facility] Comment: Interpretive data Oral anticoagulant therapeutic ranges: Venous thromboembolism prophylaxis or treatment: 2.0-3.0 CARDIOLOGY Standard range: 2.0-3.0 High-intensity range: 2.5-3.5 Refer to indication-specific guidelines for appropriate target ranges for prosthetic heart valve replacement. Current interpretive data was last revised on 2019. Blood 01/19/2025 5:12 AM STRATEGIC SOURCING MANAGER 01/19/2025 5:17 AM STRATEGIC SOURCING MANAGER us Jeremy Elkins MD LAB BLOOD ORDERABLES Final Result [place] [address] [facility] [place] [address] * (ABNORMAL) CBC without differential (01/19/2025 5:12 AM STRATEGIC SOURCING MANAGER) [facility] WBC 7.18 3.80 - 9.90 K/cumm Hgb 9.6(L) 13.0 - 17.5 g/dL [facility] Hct 29.3(L) 38.9 - 50.3 % [facility] Plt 112(L) 150 - 400 K/cumm [facility] MPV 11.5 9.1 - 12.3 fL [facility] RBC 3.15(L) 4.30 - 5.80 M/cumm [facility] MCV 93.0 81.3 - 96.4 fL [facility] MCH 30.5 27.1 - 33.3 pg [facility] MCHC 32.8 32.3 - 35.7 g/dL [facility] RDW CV 15.9(H) 11.1 - 14.9 % [facility] RDW SD 53.8(H) 35.7 - 48.1 fL [facility] NRBC abs 0.00 0.00 - 0.01 K/cumm [facility] Blood 01/19/2025 5:12 AM STRATEGIC SOURCING MANAGER 01/19/2025 5:17 AM STRATEGIC SOURCING MANAGER Jeremy Elkins MD LAB BLOOD ORDERABLES Final Result Performing Organization Address [facility] de Phone Number [facility] [address] [address] * Basic metabolic panel (01/19/2025 5:12 AM STRATEGIC SOURCING MANAGER) Pathologist [facility] Sodium 139 135 - 145 mmol/L Potassium, pl 4.5 3.3 - 4.9 mmol/L [facility] Chloride 106 97 - 110 mmol/L [facility] CO2 25 22 - 32 mmol/L [facility] Anion gap 8 2 - 15 mmol/L [facility] BUN 19 6 - 25 mg/dL [facility] Creatinine 1.00 0.80 - 1.30 mg/dL [facility] Glucose 131 70 - 199 mg/dL [facility] Comment: Interpretive Data Fasting glucose >/= 126 mg/dl is diagnostic for diabetes. Fasting is defined as no caloric intake for at least 8 hours. Fasting glucose between 100 mg/dl to 125 mg/dl is diagnostic of prediabetes. In a patient with classic symptoms of hyperglycemia or hyperglycemic crisis, a random glucose >/= 200 mg/dl is diagnostic for diabetes. In the absence of unequivocal hyperglycemia, results should be confirmed by repeat testing. The classification and Diagnosis of Diabetes Diabetes Care 2021; 46: S19-S40. Current interpretive data was last revised 2022. Calcium 8.6 8.5 - 10.3 mg/dL [facility] Blood 01/19/2025 5:12 AM STRATEGIC SOURCING MANAGER 01/19/2025 5:17 AM STRATEGIC SOURCING MANAGER Jeremy Elkins MD LAB BLOOD ORDERABLES Final Result Performing Organization Address City/[facility] Co de Phone Number [address] [place] [address] * US YE (01/18/2025 10:16 AM STRATEGIC SOURCING MANAGER) Anatomical Region Laterality Modality Vascular N/A Ultrasound 01/18/2025 9:32 AM STRATEGIC SOURCING MANAGER Narrative 01/19/2025 2:53 PM STRATEGIC SOURCING MANAGER Lower Extremity Arterial Doppler Report Patient Name: RYAN MENDOZA E : 1945 Study Date: 01/18/2025 9:32:00 AM 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 INDICATIONS: Peripheral Vascular Disease, Unspecified. 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 MEASUREMENTS: Right Value Left Value Rt Brachial Pressure 150 mmHg Lt Brachial Pressure 153 mmHg Lt SEATER ASSEMBLER Pressure 230 mmHg Lt DPA Pressure 230 mmHg Lt 1st Digit Pressure 130 mmHg Lt PT YE Resting 1.5 Lt DP YE Resting 1.5 Lt Digit 1/Arm Index 0.85 FINDINGS: Right Leg: Unable to do pressures in rt leg due to absent flow and ankle bandages. Right Posterior Tibial Artery Analysis: The posterior tibial waveform is monophasic. extremely dampened monophasic ship captain. Right Dorsalis Pedis Artery Analysis: The dorsalis pedis waveform is absent. Right Digits: The right digit waveform is absent. Left Posterior Tibial Artery Analysis: The posterior tibial waveform is biphasic. Left Dorsalis Pedis Artery Analysis: The dorsalis pedis waveform is monophasic. Left Digits: Normal left digit pressure and waveform. CONCLUSIONS: 1. Ankle-brachial index of <0.5 is consistent with severe arterial disease in the right lower extremity. 2. Ankle-brachial index of >1.3 is non-compressible which is consistent with arterial calcifications, thus the ankle/brachial index is not obtainable in the left lower extremity. ATTESTATION: I have reviewed and interpreted the pertinent images and measurements of this study. I attest to the conclusions in the final report that is provided above. 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 INDICATIONS: Peripheral Vascular Disease, Unspecified. 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 MEASUREMENTS: Right Value Left Value Rt Brachial Pressure 150 mmHg Lt Brachial Pressure 153 mmHg Lt SEATER ASSEMBLER Pressure 230 mmHg Lt DPA Pressure 230 mmHg Lt 1st Digit Pressure 130 mmHg Lt PT YE Resting 1.5 Lt DP YE Resting 1.5 Lt Digit 1/Arm Index 0.85 FINDINGS: Right Leg: Unable to do pressures in rt leg due to absent flow and ankle bandages. Right Posterior Tibial Artery Analysis: The posterior tibial waveform is monophasic. extremely dampened monophasicpta. Right Dorsalis Pedis Artery Analysis: The dorsalis pedis waveform is absent. Right Digits: The right digit waveform is absent. Left Posterior Tibial Artery Analysis: The posterior tibial waveform is biphasic. Left Dorsalis Pedis Artery Analysis: The dorsalis pedis waveform is monophasic. Left Digits: Normal left digit pressure and waveform. CONCLUSIONS: 1. Ankle-brachial index of <0.5 is consistent with severe arterial diseasein the right lower extremity. 2. Ankle-brachial index of >1.3 is non-compressible which is consistentwith arterial calcifications, thus the ankle/brachial index is not obtainable in theleft lower extremity. ATTESTATION: I have reviewed and interpreted the pertinent images and measurements ofthis study. I attest to the conclusions in the final report that is provided above. 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 A non-invasive vascular imaging study of the right lower extremity arteries and bypass graft was performed using B-mode ultrasound, color flow, and spectral Doppler. INDICATIONS: Peripheral vascular disease, unspecified. HISTORY: S\P RT FEM-SEATER ASSEMBLER BPG 11-3-25. COMPARISONS: No prior exams. MEASUREMENTS: Right Value Rt ENDODONTIC ASSISTANT Prx PSV 145.00 cm/sec Rt Profunda Prx PSV 58.85 cm/sec Rt SFA Prx PSV 19.22 cm/sec Rt Post Tibial Dst PSV 8.50 cm/sec GRAFTS: Right Value Location Rt SFA -SEATER ASSEMBLER Rt BPG Inflow PSV 19.22 cm/sec Rt Anast Prx PSV 0.00 cm/sec Rt BPG Prx PSV 0.00 cm/sec Rt BPG Mid PSV 0.00 cm/sec Rt BPG Dst PSV 0.00 cm/sec Rt Anast Dst PSV unable to vis cm/sec Rt BPG Outflow PSV 8.50 cm/sec FINDINGS: Right: Biphasic arteries include the right common femoral artery. Monophasic arteries include the right profunda femoral artery, proximal superficial femoral artery and posterior tibial artery. There is severe plaque noted of the right common femoral artery, profunda femoral artery, proximal superficial femoral artery, posterior tibial artery, peroneal artery and dorsalis pedis artery. Bypass Graft: The bypass graft is located in the SFA-SEATER ASSEMBLER. Occluded bypass graft. Provider Notification: Results called to Jeremy Elkins. CONCLUSION: 1. The arterial bypass graft is occluded. ATTESTATION: I have reviewed and interpreted the pertinent images and measurements of this study. I attest to the conclusions in the final report that is provided above. 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 A non-invasive vascular imaging study of the right lower extremity arteriesand bypass graft was performed using B-mode ultrasound, color flow, and spectralDoppler. INDICATIONS: Peripheral vascular disease, unspecified. HISTORY: S\P RT FEM-SEATER ASSEMBLER BPG 01-16-25. COMPARISONS: No prior exams. MEASUREMENTS: Right Value Rt ENDODONTIC ASSISTANT Prx PSV 145.00 cm/sec Rt Profunda Prx PSV 58.85 cm/sec Rt SFA Prx PSV 19.22 cm/sec Rt Post Tibial Dst PSV 8.50 cm/sec GRAFTS: Right Value Location Rt SFA -SEATER ASSEMBLER Rt BPG Inflow PSV 19.22 cm/sec Rt Anast Prx PSV 0.00 cm/sec Rt BPG Prx PSV 0.00 cm/sec Rt BPG Mid PSV 0.00 cm/sec Rt BPG Dst PSV 0.00 cm/sec Rt Anast Dst PSV unable to vis cm/sec Rt BPG Outflow PSV 8.50 cm/sec FINDINGS: Right: Biphasic arteries include the right common femoral artery.Monophasic arteries include the right profunda femoral artery, proximal superficial femoralartery and posterior tibial artery. There is severe plaque noted of the right commonfemoral artery, profunda femoral artery, proximal superficial femoral artery, posteriortibial artery, peroneal artery and dorsalis pedis artery. Bypass Graft: The bypass graft is located in the SFA-SEATER ASSEMBLER. Occluded bypassgraft. Provider Notification: Results called to Jeremy Elkins. CONCLUSION: 1. The arterial bypass graft is occluded. ATTESTATION: I have reviewed and interpreted the pertinent images and measurements ofthis study. I attest to the conclusions in the final report that is provided above. Electronically Signed By: Jeremy Elkins MD 01/19/2025 2:52:04 PM STRATEGIC SOURCING MANAGER us Jeremy Elkins MD IMG US PROCEDURES Final Re sult * eGFR (01/18/2025 5:29 AM STRATEGIC SOURCING MANAGER) eGFR 66 >=60 mL/min/1. 73 m2 Comment: Interpretive Data Reference Interval Normal >/= 90 mL/min/1.73m2 Mildly decreased* 60 - 89 mL/min/1.73m2 Mildly to moderately decreased 45 - 59 mL/min/1.73m2 Moderately to severely decreased 30 - 44 mL/min/1.73m2 Severely decreased 15 - 29 mL/min/1.73m2 Kidney Failure < 15 mL/min/1.73m2 *Relative to young adult level Estimated glomerular filtration rate is determined by the 2020 CKD-EPI equation recommended by the National Kidney Foundation (A Unifying Approach to GFR Estimation: Recommendations of the NKF-ASK Task Force on Reassessing the Inclusion of Race in Diagnosing Kidney Disease, JASN 2020). The CKD-EPI equation should not be used for patients with unstable renal function and has not been validated in children and those over 70. Current interpretive data was last reviewed 2021. Blood 01/18/2025 5:29 AM STRATEGIC SOURCING MANAGER 01/18/2025 5:41 AM STRATEGIC SOURCING MANAGER Jeremy Elkins MD LAB BLOOD ORDERABLES Final Result Performing Organization Address [facility] Co de Phone Number [facility] [address] [place], [place] [id number] * Protime-INR (01/18/2025 5:29 AM STRATEGIC SOURCING MANAGER) PT 14.40 12.00 - 14.60 sec INR 1.11 0.90 - 1.20 [facility] Comment: Interpretive data Oral anticoagulant therapeutic ranges: Venous thromboembolism prophylaxis or treatment: 2.0-3.0 CARDIOLOGY Standard range: 2.0-3.0 High-intensity range: 2.5-3.5 Refer to indication-specific guidelines for appropriate target ranges for prosthetic heart valve replacement. Current interpretive data was last revised on 2019. Blood 01/18/2025 5:29 AM STRATEGIC SOURCING MANAGER 01/18/2025 5:41 AM STRATEGIC SOURCING MANAGER Jeremy Elkins MD LAB BLOOD ORDERABLES Final Result Performing Organization Address City/[facility] Co de Phone Number [facility] [address] [place] [address] * (ABNORMAL) CBC without differential (01/18/2025 5:29 AM STRATEGIC SOURCING MANAGER) WBC 7.23 3.80 - 9.90 K/cumm Hgb 9.1(L) 13.0 - 17.5 g/dL [facility] Hct 27.5(L) 38.9 - 50.3 % [facility] Plt 89(L) 150 - 400 K/cumm [facility] MPV 11.8 9.1 - 12.3 fL [facility] RBC 2.99(L) 4.30 - 5.80 M/cumm [facility] MCV 92.0 81.3 - 96.4 fL [facility] MCH 30.4 27.1 - 33.3 pg [facility] MCHC 33.1 32.3 - 35.7 g/dL [facility] RDW CV 16.0(H) 11.1 - 14.9 % [facility] RDW SD 53.1(H) 35.7 - 48.1 fL [facility] NRBC abs 0.00 0.00 - 0.01 K/cumm [facility] Blood 01/18/2025 5:29 AM STRATEGIC SOURCING MANAGER 01/18/2025 5:41 AM STRATEGIC SOURCING MANAGER us Jeremy Elkins MD LAB BLOOD ORDERABLES Final Result Performing Organization Address City/State/[facility] Co de Phone Number [facility] [address] [facility] Department [place] [address] * (ABNORMAL) Basic metabolic panel (01/18/2025 5:29 AM STRATEGIC SOURCING MANAGER) Sodium 141 135 - 145 mmol/L Potassium, pl 4.4 3.3 - 4.9 mmol/L [facility] Chloride 108 97 - 110 mmol/L [facility] CO2 27 22 - 32 mmol/L [facility] Anion gap 6 2 - 15 mmol/L [facility] BUN 20 6 - 25 mg/dL [facility] Creatinine 1.14 0.80 - 1.30 mg/dL [facility] Glucose 110 70 - 199 mg/dL [facility] Comment: Interpretive Data Fasting glucose >/= 126 mg/dl is diagnostic for diabetes. Fasting is defined as no caloric intake for at least 8 hours. Fasting glucose between 100 mg/dl to 125 mg/dl is diagnostic of prediabetes. In a patient with classic symptoms of hyperglycemia or hyperglycemic crisis, a random glucose >/= 200 mg/dl is diagnostic for diabetes. In the absence of unequivocal hyperglycemia, results should be confirmed by repeat testing. The classification and Diagnosis of Diabetes Diabetes Care 202; 46: S19-S40. Current interpretive data was last revised 2022. Calcium 8.1(L) 8.5 - 10.3 mg/dL [facility] Blood 01/18/2025 5:29 AM STRATEGIC SOURCING MANAGER 01/18/2025 5:41 AM STRATEGIC SOURCING MANAGER Jeremy Elkins MD LAB BLOOD ORDERABLES Final Result Performing Organization Address City/[facility] Co de Phone Number [facility] [address] [place] [address] * eGFR (01/17/2025 4:18 AM STRATEGIC SOURCING MANAGER) eGFR 81 >=60 mL/min/1. 73 m2 Comment: Interpretive Data Reference Interval Normal >/= 90 mL/min/1.73m2 Mildly decreased* 60 - 89 mL/min/1.73m2 Mildly to moderately decreased 45 - 59 mL/min/1.73m2 Moderately to severely decreased 30 - 44 mL/min/1.73m2 Severely decreased 15 - 29 mL/min/1.73m2 Kidney Failure < 15 mL/min/1.73m2 *Relative to young adult level Estimated glomerular filtration rate is determined by the 2020 CKD-EPI equation recommended by the National Kidney Foundation (A Unifying Approach to GFR Estimation: Recommendations of the NKF-ASK Task Force on Reassessing the Inclusion of Race in Diagnosing Kidney Disease, JASN 2020). The CKD-EPI equation should not be used for patients with unstable renal function and has not been validated in children and those over 70. Current interpretive data was last reviewed 2021. Blood 01/17/2025 4:18 AM STRATEGIC SOURCING MANAGER 01/17/2025 4:46 AM STRATEGIC SOURCING MANAGER Jeremy Elkins MD LAB BLOOD ORDERABLES Final Result Performing Organization Address [facility] Co de Phone Number [facility] [place] [address] * Protime-INR (01/17/2025 4:18 AM STRATEGIC SOURCING MANAGER) PT 14.30 12.00 - 14.60 sec INR 1.10 0.90 - 1.20 [facility] Comment: Interpretive data Oral anticoagulant therapeutic ranges: Venous thromboembolism prophylaxis or treatment: 2.0-3.0 CARDIOLOGY Standard range: 2.0-3.0 High-intensity range: 2.5-3.5 Refer to indication-specific guidelines for appropriate target ranges for prosthetic heart valve replacement. Current interpretive data was last revised on 2019. Blood 01/17/2025 4:18 AM STRATEGIC SOURCING MANAGER 01/17/2025 4:46 AM STRATEGIC SOURCING MANAGER Jeremy Elkins MD LAB BLOOD ORDERABLES Final Result [facility] [address] [facility] Department [place] [address] * (ABNORMAL) CBC without differential (01/17/2025 4:18 AM STRATEGIC SOURCING MANAGER) WBC 11.02(H) 3.80 - 9.90 K/cumm Hgb 9.8(L) 13.0 - 17.5 g/dL [facility] Hct 30.6(L) 38.9 - 50.3 % [facility] Plt 123(L) 150 - 400 K/cumm [facility] MPV 11.3 9.1 - 12.3 fL [facility] RBC 3.32(L) 4.30 - 5.80 M/cumm [facility] MCV 92.2 81.3 - 96.4 fL [facility] MCH 29.5 27.1 - 33.3 pg [facility] MCHC 32.0(L) 32.3 - 35.7 g/dL [facility] RDW CV 15.7(H) 11.1 - 14.9 % [facility] RDW SD 52.9(H) 35.7 - 48.1 fL [facility] NRBC abs 0.00 0.00 - 0.01 K/cumm [facility] Blood 01/17/2025 4:18 AM STRATEGIC SOURCING MANAGER 01/17/2025 4:46 AM STRATEGIC SOURCING MANAGER Jeremy Elkins MD LAB BLOOD ORDERABLES Final Result Performing Organization Address City/[facility]/ZIP Co de Phone Number [facility] [address] [facility] [place] [address] * (ABNORMAL) Basic metabolic panel (01/17/2025 4:18 AM STRATEGIC SOURCING MANAGER) Sodium 138 135 - 145 mmol/L Potassium, pl 4.4 3.3 - 4.9 mmol/L [facility] Comment:Hemolyzed; Potassium value may be falsely elevated by as much as 1.0 mmol/L. Suggest redraw and reanalysis. Chloride 106 97 - 110 mmol/L [facility] CO2 23 22 - 32 mmol/L [facility] Anion gap 9 2 - 15 mmol/L [facility] BUN 15 6 - 25 mg/dL [facility] Creatinine 0.96 0.80 - 1.30 mg/dL [facility] Glucose 129 70 - 199 mg/dL [facility] Comment: Interpretive Data Fasting glucose >/= 126 mg/dl is diagnostic for diabetes. Fasting is defined as no caloric intake for at least 8 hours. Fasting glucose between 100 mg/dl to 125 mg/dl is diagnostic of prediabetes. In a patient with classic symptoms of hyperglycemia or hyperglycemic crisis, a random glucose >/= 200 mg/dl is diagnostic for diabetes. In the absence of unequivocal hyperglycemia, results should be confirmed by repeat testing. The classification and Diagnosis of Diabetes Diabetes Care 202; 46: S19-S40. Current interpretive data was last revised 2022. Calcium 7.9(L) 8.5 - 10.3 mg/dL [facility] Blood 01/17/2025 4:18 AM STRATEGIC SOURCING MANAGER 01/17/2025 4:46 AM STRATEGIC SOURCING MANAGER Jeremy Elkins MD LAB BLOOD ORDERABLES Final Result Performing Organization Address City/[facility] Co de Phone Number [facility] [address] [facility] [place] [address] * BYPASS GRAFT - FEMORAL PERONEAL (01/16/2025 11:45 AM STRATEGIC SOURCING MANAGER) Anatomical Region Laterality Modality X-Ray Angiograph y Narrative 01/16/2025 2:25 PM STRATEGIC SOURCING MANAGER Please see OpNote for result. us Jeremy Elkins MD CV CARDIAC CATH PROCEDURES Final Result * AK AN ELECTIVE ENDOTRACHEAL AIRWAY, AK AN PROCEDURE PLACEHOLDER (01/16/2025 8:24 AM STRATEGIC SOURCING MANAGER) Rajani Beck CRNA - 01/16/2025 8:24 AM STRATEGIC SOURCING MANAGER Rajani Tracey CRNA 01/16/2025 8:25 AM Airway Patient location: OR Urgency: elective Date/time: 01/16/2025 8:05 AM Indications for airway management: anesthesia Difficult airway: no Staff: Supervising provider: Baltazar Guzman MD Placed by: REPAIR SUPERVISOR: Rajani Tracey CRNA Emergent airway documentation: Risks and benefits discussed: yes Consent obtained: yes Consent given by: patient Airway prep: Preoxygenated: yes Patient position: sniffing Mask difficulty assessment: 1 - vent by mask Spontaneous ventilation during airway: absent Sedation level during airway: GA Final airway details: Final airway type: endotracheal airway Tube type: ETT ETT size: 8.0 mm Cuffed: yes Technique used for successful ETT placement: direct laryngoscopy Devices/Methods used in placement: stylet Insertion site: oral Blade type: Marvel Blade size: 4 Cormack-Lehane (direct): grade I - full view of glottis Cuff volume: 8 mL Cuff inflated with: air ETT to teeth: 23 cm Placement verified by: auscultation and CO2 detection Number of attempts: 1 Baltazar Guzman MD ANESTHESIA ORDERABLE S Final Result * AK AN PROCEDURE PLACEHOLDER (01/16/2025 8:20 AM STRATEGIC SOURCING MANAGER) Rajani Beck CRNA - 01/16/2025 8:20 AM STRATEGIC SOURCING MANAGER Rajani Tracey CRNA 01/16/2025 8:21 AM Arterial Line Patient location: OR Indication: continuous blood pressure monitoring Staff: Placed by: Anesthesiologist: Baltazar Guzman MD Procedure prep: Prep solution: chlorhexadine/alcohol Prep: sterile gloves, sterile probe cover and provider hat/mask Arterial line: Catheter size: 20 gauge Catheter length: 1 and 3/4 inch Catheter type: wire-guided catheter Seldinger technique: yes Laterality: right Site: radial artery Line secured: Tegaderm and tape Results: good waveform and good blood return Number of attempts: 1 Assessment: Events: patient tolerated procedure well with no complications us Baltazar Guzman MD ANESTHESIA ORDERABLE S Final Result * eGFR (01/09/2025 2:22 PM CDT) eGFR 64 >=60 mL/min/1. 73 m2 Comment: Interpretive Data Reference Interval Normal >/= 90 mL/min/1.73m2 Mildly decreased* 60 - 89 mL/min/1.73m2 Mildly to moderately decreased 45 - 59 mL/min/1.73m2 Moderately to severely decreased 30 - 44 mL/min/1.73m2 Severely decreased 15 - 29 mL/min/1.73m2 Kidney Failure < 15 mL/min/1.73m2 *Relative to young adult level Estimated glomerular filtration rate is determined by the 2020 CKD-EPI equation recommended by the National Kidney Foundation (A Unifying Approach to GFR Estimation: Recommendations of the NKF-ASK Task Force on Reassessing the Inclusion of Race in Diagnosing Kidney Disease, JASN 2020). The CKD-EPI equation should not be used for patients with unstable renal function and has not been validated in children and those over 70. Current interpretive data was last reviewed 2021. Blood 01/09/2025 2:22 PM CDT 01/09/2025 2:26 PM CDT Jeremy Elkins MD LAB BLOOD ORDERABLES Final Result [facility] [address] [facility] Department [place] [address] * Differential, auto (01/09/2025 2:22 PM CDT) Neutrophil abs 4.39 1.50 - 6.50 K/cumm Imm gran abs 0.04 0.00 - 0.10 K/cumm [facility] Lymphocyte abs 2.77 0.80 - 3.30 K/cumm [facility] Monocyte abs 0.72 0.20 - 0.80 K/cumm [facility] Eosinophil abs 0.30 0.00 - 0.50 K/cumm [facility] Basophil abs 0.04 0.00 - 0.10 K/cumm [facility] Neutrophil pct 53.2 % [facility] Comment: Interpretive Data Percent cell count reference ranges are not reported, since discordance with absolute values may lead to misinterpretation of CBC data. Current Interpretive Data was last revised on 2017. Imm gran pct 0.5 % [facility] Comment: Interpretive Data Percent cell count reference ranges are not reported, since discordance with absolute values may lead to misinterpretation of CBC data. Current Interpretive Data was last revised on 2017. Lymphocyte pct 33.5 % [facility] Comment: Interpretive Data Percent cell count reference ranges are not reported, since discordance with absolute values may lead to misinterpretation of CBC data. Current Interpretive Data was last revised on 2017. Monocyte pct 8.7 % [facility] Comment: Interpretive Data Percent cell count reference ranges are not reported, since discordance with absolute values may lead to misinterpretation of CBC data. Current Interpretive Data was last revised on 2017. Eosinophil pct 3.6 % [facility] Comment: Interpretive Data Percent cell count reference ranges are not reported, since discordance with absolute values may lead to misinterpretation of CBC data. Current Interpretive Data was last revised on 2017. Basophil pct 0.5 % [facility] Comment: Interpretive Data Percent cell count reference ranges are not reported, since discordance with absolute values may lead to misinterpretation of CBC data. Current Interpretive Data was last revised on 2017. Blood 01/09/2025 2:22 PM CDT 01/09/2025 2:26 PM CDT us Jeremy Elkins MD LAB BLOOD ORDERABLES Final Result [facility] [address] [facility] [place] [address] * (ABNORMAL) CBC with auto differential (01/09/2025 2:22 PM CDT) WBC 8.26 3.80 - 9.90 K/cumm Hgb 13.6 13.0 - 17.5 g/dL [facility] Hct 41.9 38.9 - 50.3 % [facility] Plt 145(L) 150 - 400 K/cumm [facility] MPV 11.2 9.1 - 12.3 fL [facility] RBC 4.66 4.30 - 5.80 M/cumm [facility] MCV 89.9 81.3 - 96.4 fL [facility] MCH 29.2 27.1 - 33.3 pg [facility] MCHC 32.5 32.3 - 35.7 g/dL [facility] RDW CV 15.7(H) 11.1 - 14.9 % [facility] RDW SD 51.6(H) 35.7 - 48.1 fL [facility] NRBC abs 0.00 0.00 - 0.01 K/cumm [facility] Blood 01/09/2025 2:22 PM CDT 01/09/2025 2:26 PM CDT Jeremy Elkins MD LAB BLOOD ORDERABLES Final Result Performing Organization Address [facility] de Phone Number [address] [place] [address] * ABO/Rh (01/09/2025 2:22 PM CDT) ABO/Rh A Positive Blood 01/09/2025 2:22 PM CDT 01/09/2025 2:26 PM CDT Narrative [facility] - 01/09/2025 3:22 PM CDT Is this test being ordered in advance for a procedure?->Yes Expected date of procedure:->01/16/25 Has the patient been transfused in the past 3 months?->No Jeremy Elkins MD LAB BLOOD BANK TEST ORDERA BLES Final Result Performing Organization Address City/[facility] Co de Phone Number [address] [place] [address] * aPTT (01/09/2025 2:22 PM CDT) aPTT 31 22 - 37 sec Comment: Interpretive data aPTT test has not been evaluated for monitoring heparin therapy. The anti-Xa is the preferred test. Current interpretive data was last revised on 2019. Blood 01/09/2025 2:22 PM CDT 01/09/2025 2:26 PM CDT Jeremy Elkins MD LAB BLOOD ORDERABLES Final Result Performing Organization Address [facility] de Phone Number [address] [place] [address] * (ABNORMAL) Protime-INR (01/09/2025 2:22 PM CDT) Pathologist [facility] PT 20.00(H) 12.00 - 14.60 sec INR 1.71(H) 0.90 - 1.20 [facility] Comment: Interpretive data Oral anticoagulant therapeutic ranges: Venous thromboembolism prophylaxis or treatment: 2.0-3.0 CARDIOLOGY Standard range: 2.0-3.0 High-intensity range: 2.5-3.5 Refer to indication-specific guidelines for appropriate target ranges for prosthetic heart valve replacement. Current interpretive data was last revised on 2019. Blood 01/09/2025 2:22 PM CDT 01/09/2025 2:26 PM CDT Jeremy Elkins MD LAB BLOOD ORDERABLES Final Result Performing Organization Address [facility] de Phone Number [address] [place] [address] * Antibody screen (01/09/2025 2:22 PM CDT) Pathologist [facility] Gael, indirect, Gel Interpretation Negative ABSC Blood 01/09/2025 2:22 PM CDT 01/09/2025 2:26 PM CDT Narrative [facility] - 01/09/2025 3:22 PM CDT Is this test being ordered in advance for a procedure?->Yes Expected date of procedure:->01/16/25 Has the patient been transfused in the past 3 months?->No Jeremy Elkins MD LAB BLOOD BANK TEST ORDERA BLES Final Result Performing Organization Address [facility] Co de Phone Number [facility] [address] [place] [address] * Basic metabolic panel (01/09/2025 2:22 PM CDT) [facility] Sodium 144 135 - 145 mmol/L Potassium, pl 4.8 3.3 - 4.9 mmol/L [facility] Chloride 106 97 - 110 mmol/L [facility] CO2 30 22 - 32 mmol/L [facility] Anion gap 8 2 - 15 mmol/L [facility] BUN 18 6 - 25 mg/dL [facility] Creatinine 1.17 0.80 - 1.30 mg/dL [facility] Glucose 103 70 - 199 mg/dL [facility] Comment: Interpretive Data Fasting glucose >/= 126 mg/dl is diagnostic for diabetes. Fasting is defined as no caloric intake for at least 8 hours. Fasting glucose between 100 mg/dl to 125 mg/dl is diagnostic of prediabetes. In a patient with classic symptoms of hyperglycemia or hyperglycemic crisis, a random glucose >/= 200 mg/dl is diagnostic for diabetes. In the absence of unequivocal hyperglycemia, results should be confirmed by repeat testing. The classification and Diagnosis of Diabetes Diabetes Care 2021; 46: S19-S40. Current interpretive data was last revised 2022. Calcium 9.3 8.5 - 10.3 mg/dL [facility] Blood 01/09/2025 2:22 PM CDT 01/09/2025 2:26 PM CDT Jeremy Elkins MD LAB BLOOD ORDERABLES Final Result Performing Organization Address [facility]/ZIP Co de Phone Number [address] [place] [address] * US Groin Pseudo Left (01/03/2025 11:15 AM CDT) Anatomical Region Laterality Modality Vascular Left Ultrasound 01/03/2025 9:59 AM CDT Narrative 01/04/2025 8:22 AM CDT Lower Extremity Pseudoaneurysm Report Patient Name: RYAN MENDOZA E : 1945 (79y 9m) Sex: M Study Date: 01/03/2025 09:59:52 AM Ht(Inch): Wt(Lb): BSA: Supervisor [employer] Maintenance: AL WINN Provider: TAVARES JACOBO Quality: Adequate Ref Provider: TAVARES JACOBO PROCEDURES: Vascular Report: A non-invasive vascular imaging study of the left lower extremity arteries was performed using B-mode ultrasound, color flow, and spectral Doppler. INDICATIONS: R09.89 Other specified symptoms and signs involving the circulatory and respiratory systems. HISTORY: History of 12-28-22. COMPARISONS: No prior exams. FINDINGS: Left: Appears to be no pseudoaneurysm seen in left groin. Biphasic flow was seen in EIA, ENDODONTIC ASSISTANT, SFA Prox, and DFA. No DVT was seen in left EIV, CFV, Prox Fem V, and Profunda v. CONCLUSIONS: 1. Negative for pseudoaneurysms left groin. ATTESTATION: I have reviewed and interpreted the pertinent images and measurements of this study. I attest to the conclusions in the final report that is provided above. 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 INDICATIONS: R09.89 Other specified symptoms and signs involving the circulatory andrespiratory systems. HISTORY: History of 12-28-22. COMPARISONS: No prior exams. FINDINGS: Left: Appears to be no pseudoaneurysm seen in left groin. Biphasic flowwas seen in EIA, ENDODONTIC ASSISTANT, SFA Prox, and DFA. No DVT was seen in left EIV, CFV, Prox Fem V, andProfunda v. CONCLUSIONS: 1. Negative for pseudoaneurysms left groin. ATTESTATION: I have reviewed and interpreted the pertinent images and measurements ofthis study. I attest to the conclusions in the final report that is provided above. Electronically Signed By: Jeremy Elkins MD 01/04/2025 7:42:16 AM CDT Tavares DE IMG US PROCEDURES Final Res ult * ANGIOGRAPHY UNILATERAL EXTREMITY S&I 22846 (12/28/2024 11:27 AM CDT) Anatomical Region Laterality Modality X-Ray Angiograph y Narrative 12/28/2024 11:37 AM CDT Please see OpNote for result. Jeremy Elkins MD CV CARDIAC CATH PROCEDURES Final Result * ABO / Rh Confirmation Testing (12/28/2024 9:27 AM CDT) ABO/Rh Confirmation A Positive [facility] Blood 12/28/2024 9:27 AM CDT 12/28/2024 9:32 AM CDT Jeremy Elkins MD LAB BLOOD ORDERABLES Final Result [facility] [address] [facility] [place] [address] [facility] * eGFR (12/28/2024 9:13 AM CDT) eGFR 69 >=60 mL/min/1. 73 m2 Comment: Interpretive Data Reference Interval Normal >/= 90 mL/min/1.73m2 Mildly decreased* 60 - 89 mL/min/1.73m2 Mildly to moderately decreased 45 - 59 mL/min/1.73m2 Moderately to severely decreased 30 - 44 mL/min/1.73m2 Severely decreased 15 - 29 mL/min/1.73m2 Kidney Failure < 15 mL/min/1.73m2 *Relative to young adult level Estimated glomerular filtration rate is determined by the 2020 CKD-EPI equation recommended by the National Kidney Foundation (A Unifying Approach to GFR Estimation: Recommendations of the NKF-ASK Task Force on Reassessing the Inclusion of Race in Diagnosing Kidney Disease, JASN 2020). The CKD-EPI equation should not be used for patients with unstable renal function and has not been validated in children and those over 70. Current interpretive data was last reviewed 2021. Blood 12/28/2024 9:13 AM CDT 12/28/2024 9:18 AM CDT us Jeremy Elkins MD LAB BLOOD ORDERABLES Final Result [facility] [address] [facility] [place] [address] * Differential, auto (12/28/2024 9:13 AM CDT) Neutrophil abs 2.82 1.50 - 6.50 K/cumm Imm gran abs 0.04 0.00 - 0.10 K/cumm [facility] Lymphocyte abs 2.69 0.80 - 3.30 K/cumm [facility] Monocyte abs 0.60 0.20 - 0.80 K/cumm [facility] Eosinophil abs 0.28 0.00 - 0.50 K/cumm [facility] Basophil abs 0.04 0.00 - 0.10 K/cumm [facility] Neutrophil pct 43.6 % [facility] Comment: Interpretive Data Percent cell count reference ranges are not reported, since discordance with absolute values may lead to misinterpretation of CBC data. Current Interpretive Data was last revised on 2017. Imm gran pct 0.6 % [facility] Comment: Interpretive Data Percent cell count reference ranges are not reported, since discordance with absolute values may lead to misinterpretation of CBC data. Current Interpretive Data was last revised on 2017. Lymphocyte pct 41.6 % [facility] Comment: Interpretive Data Percent cell count reference ranges are not reported, since discordance with absolute values may lead to misinterpretation of CBC data. Current Interpretive Data was last revised on 2017. Monocyte pct 9.3 % [facility] Comment: Interpretive Data Percent cell count reference ranges are not reported, since discordance with absolute values may lead to misinterpretation of CBC data. Current Interpretive Data was last revised on 2017. Eosinophil pct 4.3 % [facility] Comment: Interpretive Data Percent cell count reference ranges are not reported, since discordance with absolute values may lead to misinterpretation of CBC data. Current Interpretive Data was last revised on 2017. Basophil pct 0.6 % [facility] Comment: Interpretive Data Percent cell count reference ranges are not reported, since discordance with absolute values may lead to misinterpretation of CBC data. Current Interpretive Data was last revised on 2017. Blood 12/28/2024 9:13 AM CDT 12/28/2024 9:18 AM CDT Jeremy Elkins MD LAB BLOOD ORDERABLES Final Result [place] [address] [facility] [place] [address] * (ABNORMAL) CBC with auto differential (12/28/2024 9:13 AM CDT) WBC 6.47 3.80 - 9.90 K/cumm Hgb 13.0 13.0 - 17.5 g/dL [facility] Hct 39.5 38.9 - 50.3 % [facility] Plt 126(L) 150 - 400 K/cumm [facility] MPV 11.4 9.1 - 12.3 fL [facility] RBC 4.38 4.30 - 5.80 M/cumm [facility] MCV 90.2 81.3 - 96.4 fL [facility] MCH 29.7 27.1 - 33.3 pg [facility] MCHC 32.9 32.3 - 35.7 g/dL [facility] RDW CV 16.1(H) 11.1 - 14.9 % [facility] RDW SD 53.7(H) 35.7 - 48.1 fL [facility] NRBC abs 0.00 0.00 - 0.01 K/cumm [facility] Blood 12/28/2024 9:13 AM CDT 12/28/2024 9:18 AM CDT Narrative [facility] - 12/28/2024 9:34 AM CDT If most recent labs were drawn prior to 4 AM, draw only prior to initiating procedure. us Jeremy Elkins MD LAB BLOOD ORDERABLES Final Result Performing Organization Address [facility] de Phone Number [address] [address] * ABO/Rh (12/28/2024 9:13 AM CDT) ABO/Rh A Positive Blood 12/28/2024 9:13 AM CDT 12/28/2024 9:18 AM CDT Narrative [facility] - 12/28/2024 9:55 AM CDT Has the patient had Daratumumab or Isatuximab in the past 6 months?->Unknown Jeremy Elkins MD LAB BLOOD BANK TEST ORDERA BLES Final Result Performing Organization Address [facility] de Phone Number [address] [address] * aPTT (12/28/2024 9:13 AM CDT) Pathologist [facility] aPTT 26 22 - 37 sec Comment: Interpretive data aPTT test has not been evaluated for monitoring heparin therapy. The anti-Xa is the preferred test. Current interpretive data was last revised on 2019. Blood 12/28/2024 9:13 AM CDT 12/28/2024 9:18 AM CDT Jeremy Elkins MD LAB BLOOD ORDERABLES Final Result Performing Organization Address [facility] Co de Phone Number [address] [place] [address] * Protime-INR (12/28/2024 9:13 AM CDT) PT 13.50 12.00 - 14.60 sec INR 1.02 0.90 - 1.20 [facility] Comment: Interpretive data Oral anticoagulant therapeutic ranges: Venous thromboembolism prophylaxis or treatment: 2.0-3.0 CARDIOLOGY Standard range: 2.0-3.0 High-intensity range: 2.5-3.5 Refer to indication-specific guidelines for appropriate target ranges for prosthetic heart valve replacement. Current interpretive data was last revised on 2019. Blood 12/28/2024 9:13 AM CDT 12/28/2024 9:18 AM CDT Jeremy Elkins MD LAB BLOOD ORDERABLES Final Result Performing Organization Address [facility] de Phone Number [address] [place] [address] * Antibody screen (12/28/2024 9:13 AM CDT) Pathologist [facility] Gael, indirect, Gel Interpretation Negative ABSC Blood 12/28/2024 9:13 AM CDT 12/28/2024 9:18 AM CDT Narrative [facility] - 12/28/2024 9:55 AM CDT Has the patient had Daratumumab or Isatuximab in the past 6 months?->Unknown Jeremy Elkins MD LAB BLOOD BANK TEST ORDERA BLES Final Result Performing Organization Address [facility] de Phone Number [address] [address] * Basic metabolic panel (12/28/2024 9:13 AM CDT) [facility] Sodium 142 135 - 145 mmol/L Potassium, pl 4.5 3.3 - 4.9 mmol/L [facility] Chloride 106 97 - 110 mmol/L [facility] CO2 28 22 - 32 mmol/L [facility] Anion gap 8 2 - 15 mmol/L [facility] BUN 22 6 - 25 mg/dL [facility] Creatinine 1.10 0.80 - 1.30 mg/dL [facility] Glucose 112 70 - 199 mg/dL [facility] Comment: Interpretive Data Fasting glucose >/= 126 mg/dl is diagnostic for diabetes. Fasting is defined as no caloric intake for at least 8 hours. Fasting glucose between 100 mg/dl to 125 mg/dl is diagnostic of prediabetes. In a patient with classic symptoms of hyperglycemia or hyperglycemic crisis, a random glucose >/= 200 mg/dl is diagnostic for diabetes. In the absence of unequivocal hyperglycemia, results should be confirmed by repeat testing. The classification and Diagnosis of Diabetes Diabetes Care 2021; 46: S19-S40. Current interpretive data was last revised 2022. Calcium 8.9 8.5 - 10.3 mg/dL [facility] Blood 12/28/2024 9:13 AM CDT 12/28/2024 9:18 AM CDT us Jeremy Elkins MD LAB BLOOD ORDERABLES Final Result [facility] [address] [facility] [place] [address] * (ABNORMAL) Protime-INR (12/08/2024 10:01 AM CDT) INR 1.8(H) 0.9 - 1.2 [facility] - Comment: Reference interval is for non-anticoagulated patients. Suggested INR therapeutic range for Vitamin K antagonist therapy: Standard Dose (moderate intensity therapeutic range): 2.0 - 3.0 Higher intensity therapeutic range 2.5 - 3.5 PT 18.1(H) 9.1 - 12.0 sec [facility] - 01 Blood 12/08/2024 10:0 1 AM CDT 12/08/2024 Narrative [facility] - 12/09/2024 8:12 AM CDT Performed at: [facility] [id number] Branch Manager: Cash Ashraf PhD, Phone: [phone] us Greg Omer MD LAB BLOOD ORDERABLES Urmila l Result [facility] - 01 * (ABNORMAL) Protime-INR (11/17/2024 4:14 PM CDT) INR 1.9(H) 0.9 - 1.2 [facility] - 01 Comment: Reference interval is for non-anticoagulated patients. 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 Patient may require a screening swab. No additional isolation precautions are necessary with this flag/n.moll 02/06/[address] 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 Expl anation ADVANCE DIRECTIVE 01/09/2025 2:54 PM dura ble POA * Full Code (Latest Code Status on File) Date Activated Date Inactivated Comments 02/02/2025 4:49 PM 02/06/2025 6:14 PM * Full Code Date Activated Date Inactivated Comments 01/16/2025 12:29 PM 01/19/2025 4:58 PM Care Teams Masonry Instructor Relationship Specialty Start Date End Date Gil Carranza DO PCP - General Internal Medicine 01/19/24 Jeremy Elkins MD [address] [place] [address] Surgeon Vascular Surgery 12/28/24 Greg Omer MD [address], [address] [place] [address] Consulting Physician Cardiology 01/06/25
--- OUTSIDE RECORDS SUMMARY | 2025-02-13 11:30 | XMS_ITS | Encounter Summary ---
Author Organization [facility] Healthcare Address [address] [place] [address] Care Team Providers Care Manager French Name Role Phone Gil Carranza Primary Care Provider [phone] Jeremy Elkins MD Unavailable [phone] Greg Omer MD Unavailable [phone] Encounter Details Date Type Department Care Team (Late st Contact Info) Description 02/13/2025 Telephone [facility] Medical Group Cardiology [address] [facility] [address] [place] [address] Greg Omer MD [address] [facility] [address] [place] [address] [facility], [address] [place], [place] [id number] Social History Tobacco Use Types Packs/Day Years [...] often do you attend chur ch or druze services? Never 02/03/2025 Do you belong to any clubs o r organizations such as caodaism groups, unions, fraternal or athletic groups, or [...] any time in the past [facility], were you homeless or living in a group home (including now)? No 02/03/2025 [facility] Utilities Answer Date Recorded In the past [...] on file Legal Sex Male 7:16 PM [employer] Gender Identity Male 05/17/2020 9:09 PM [employer] Sexual Orientation Straight 05/17/2020 9: 09 PM [employer] documented as of this encounter Plan of Treatment Not on [...] documented as of this encounter Care Teams Manager French Relationship Specialty Start Date End Date Gil Carranza DO PCP - General Internal Medicine 01/19/24 Jeremy Elkins MD [address] [facility] [address] [place] [address] Surgeon Vascular Surgery 12/28/24 Greg Omer MD [address] [place] [address] [place] [address] Consulting Physician Cardiology 01/06/25 documented as of this encounter
== END 2025-02-13 10:14 | disposition home or self-care (01) ==
PROVIDERS: PCP Internal Medicine; Visit Provider Internal Medicine
DX: M25.569 Pain in unspecified knee (principal); Z96.652 Presence of left artificial knee joint
CPT/HCPCS: 73562